=== PATIENT | female | born 2000 | race Caucasian/White ===

== ENCOUNTER → 2024-06-25 | Outpatient (CLI) | payer OTHER, SELFPAY | END | disposition home or self-care (01) | PROVIDERS: Referring Provider Nurse Practitioner Family; Visit Provider Nurse Practitioner Family | DX: J02.9 Acute pharyngitis, unspecified (principal) | CPT/HCPCS: 87070; 87077 ==

== ENCOUNTER 2025-03-03 08:27 | Emergency (ER) | payer OTHER, SELFPAY ==
[2025-03-03 08:28] VITALS: BP 151/98; PULSE 116; RESP 16; TEMP 37; O2SAT 100
--- NOTE | 2025-03-03 08:50 | ED.VIS.LOWEX ---
HPI History of Present Illness Chief Complaint: Lower Extremity Injury Informant: patient Narrative Narrative: Patient is a 24-year-old female with no significant past medical history presenting with right knee pain and injury. Patient slipped on wet grass last night. She describes a valgus stress to her knee and is having significant pain along the medial aspect of her right knee. She states is constant and throbbing. Woke her up around 3 or 4 AM. It is worse when she tries to fully straighten or when she weightbears. Does not have a whole lot of swelling in her knee. Did put a compressive sleeve on last night after the injury. States when she was in high school did have an injury to the same knee but never required any surgery. Did follow-up with an orthopedist in [place]. No other complaints or concerns at this time. No other injuries reported. 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 estradiol 20 1 tab PO DAILY 03/03/25 03/03/25 History mcg (24)-iron 75 mg (4) chew tablet (Breonna 24 Fe) valacyclovir 500 mg tablet 500 mg PO DAILY 03/03/25 03/02/25 History Allergy/AdvReac Type Severity Reaction Status Date / Time No Known Allergies Allergy Verified 03/03/25 08:28 Social History Smoking Status: Never smoker ROS ROS ED Constitutional Constitutional ED: Denies chills or fever(s) Musculoskeletal Musculoskeletal: Reports other Details: right knee pain Integumentary Denies Abrasions or rash Neurologic Neurologic: Denies paresthesias or weakness Hematologic/Lymphatic Hematologic/Lymphatic: Denies easy bleeding or easy bruising EXAM Physical Exam Const Vital Signs: 03/03/25 08:28 03/03/25 09:39 Temperature 98.6 F 97 F L Temperature Source Oral Pulse Rate 116 H 64 Respiratory Rate 16 18 Blood Pressure 151/98 H 134/78 H Blood Pressure Mean 115 96 Pulse Ox 100 99 Oxygen Delivery Method Room Air Positive well nourished and well developed General Appearance ED: well developed and NAD HEENT Reports moist mucous membranes Chest Wall inspection of chest normal Resp normal respiratory effort Cardio regular rate and regular rhythm Cardio Narrative: 2+ DP pulses, no pedal edema present Extremity Extremity Narrative: No obvious deformity. Patient is holding her right knee slightly flexed. States is more painful to extend it fully. Normal extensor mechanism. No high riding/low riding patella. Slight swelling on the medial aspect of the knee but no significant joint effusion present. Mild discomfort with range of motion and increased discomfort with valgus stress. No obvious instability with anterior posterior drawer test. No significant tenderness over the fibular head. Mild tenderness over the tibial plateau. Normal Downs test. No pain with logroll in the hip or with range of motion of the hip. Neuro oriented x3, moves all extremities and no sensory deficits noted Sensorium / Orientation: alert Psych mental status grossly normal MDM MDM MDM Narrative Medical decision making narrative: Patient evaluated for acute knee pain associate with injury yesterday. Something is more of a twisting/ valgus stress mechanism. Patient given Motrin in the emergency room. Will obtain x-ray. Differential includes tibial plateau fracture, meniscal tear, knee sprain ligamentous strain as well as ACL/MCL injury (lower suspicion given no significant joint effusion). X-ray viewed by myself as well as radiology does not show any acute fracture or large joint effusion. Patient be given Raulito wrap, offered crutches as needed, outpatient orthopedic referral counseled on RICE therapy. Radiography Diagnostic Testing: Clinical Impression(s) from Imaging Studies Knee X-Ray 03/03/25 08:58 IMPRESSION: No acute fracture or dislocations. No significant degenerative changes. No large joint effusion. No acute soft tissue abnormalities. No radiographic foreign body. Reading Location: [facility] Discharge Plan Triage Chief Complaint: Lower Extremity Injury ED Provider: Mary Pineda Dx/Rx/DC Orders Clinical Impression: Right knee sprain Instructions: ED Knee Sprain Prescriptions: New ibuprofen 600 mg tablet 600 mg PO Q6H PRN PRN (Reason: pain) Qty: 20 0RF No Action valacyclovir 500 mg tablet 500 mg PO DAILY norethindrone-e.estradiol-iron [Breonna 24 Fe] 1 mg-20 mcg(24) /75 mg (4) tablet,chewable 1 tab PO DAILY Stand Alone Forms: ED Work / School Excuse Primary Care Provider: Care Physician,No Primary Referrals: Denny Hutton DO [Med Staff - Active Staff] - Care Physician,No Primary [Primary Care Provider] - Print Language: Samoan Disposition Disposition: Home, Self Care Discharge Date/Time: 03/03/25 09:40
--- NOTE | 2025-03-03 08:58 | RAD_ITS ---
PROCEDURE: KNEE 4 OR MORE VIEWS 03/03/2025 REASON FOR EXAM: INJURY/PAIN TECHNIQUE: KNEE 4 OR MORE VIEWS COMPARISON: None RAD/Knee 4 or More Views IMPRESSION: No acute fracture or dislocations. No significant degenerative changes. No large joint effusion. No acute soft tissue abnormalities. No radiographic foreign body. Reading Location: [id number]
--- OUTSIDE RECORDS SUMMARY | 2025-03-03 09:05 | XMS RPT_ITS | CCD ---
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 [Mass/Vol] 12 mg/dL 7 - 17 mg/dL [facility] Culture, Throaton 06-27-2024 CUT Penicillin is the drug of choice for Beta Streptococcal infections. For Penicillin allergic patients, Erythromycin may be used. Bacteria Throat Cult No Group A Beta Streptococcus isolated. Streptococcus group C Amount Growth 2+ Normal [facility] Comment on above: Performed By: #### M 100.1000 #### [facility] [address] [place], [address] Office Visit Reporton 2023 Office Visit Report [facility] [address] [address] OFFICE VISIT Date of Service: 06/25/24 MR#: [id number] Acct: [id number] Patient: GELY HICKS Rep #: [id number] : 2000 Provider: NICOLE ngo Age/Sex: 24/F Location: [facility] Status: Signed Intake Vital Signs 06/25/24 12:38 BP 108/60 Blood Pressure Location Lt brachial Position Sitting Respiration 16 Pulse 110 H Pulse Source NIBP Temp 99.1 F Temp Source Oral Pulse Oximetry (%) 99 Oxygen Delivery Method room air Intake Visit Reasons: SORE THROAT, FATIGUE Chief Complaint: ST, fatigue, sweats/chills 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 very painful to swallow even saliva. unsure of fever at home. denies ANNA, cough, congestion PFSH Medical History (Updated 06/25/24 @ 13:01 by [place] NP, SECURITY COMPLIANCE ENGINEER-C) Physical exam, pre-employment HPI HPI Chief Complaint: ST, fatigue, sweats/chills Details: GELY HICKS, is a 24 F who presents to the office today for concerns sore throat, sweats, and chills for the last three days. She states it is painful to swallow. She is unsure of fever. She denies headache, cough, or congestion. Prior to evaluation, she underwent strep testing that was negative. ROS Const Constitutional: No body ache, chills, fatigue, fever(s), headache(s) or change in appetite Eyes Eyes: No blurry vision, change in vision, double vision, irritation, discharge, vision loss, dry eyes, bulging eyes, floaters, visual disturbances, eye pain, Light sensitivity, spots in vision, tunnel vision or other ENT ENT: Positive for sore throat; No ear or mastoid pain, ear discharge, ear pressure, tinnitus, dizziness/vertigo, nosebleed/epistaxis, nasal congestion, nose pain, sinus pressure, sinus pain, nasal discharge, post nasal drip, headache(s), facial pain, dental pain, difficulty swallowing, bad breath, hoarseness, lip swelling, mouth lesions, mouth pain, neck pain, tongue swelling or throat swelling Resp Respiratory: No cough, change in phlegm color, chest congestion, hemoptysis, pain on inspiration, shortness of breath, pain with cough, stridor or wheezing Cardio Cardiology: No chest pain at rest, chest pain with exertion, shortness of breath, dyspnea on exertion or lightheadedness Gastro GI: No abdominal pain, change in bowel habits or difficulty swallowing Genitourinary-Female: No burning urination or urinary frequency Musc Musculoskeletal: No joint pain or neck pain Skin Skin: No rash Neuro Neurology: No headache(s) or visual disturbances Psych Psychiatric: No change in appetite Endo Endocrine: No fatigue Aller/Imm Allergy/Immunologic: No lip swelling, throat swelling, tongue swelling or wheezing Exam Const General: cooperative, healthy appearing, comfortable and no acute distress Orientation: alert, awake and oriented [facility] normal to inspection and normocephalic Ears: hearing grossly normal bilaterally, external ears normal and TM's normal bilaterally Nose: external nose normal, nares normal and no nasal discharge Face and sinus: normal facial exam and sinuses nontender Mouth: oral mucosae normal, lip normal, tongue normal, oropharynx normal and moist mucous membranes Throat: uvula midline, abnormal tonsil bilaterally exudates and hypertrophy 1+ and no postnasal drainage Eyes General: appearance normal, both eyes and all related structures Neck Neck: normal visual inspection and no lymphadenopathy Carotids: normal carotid upstroke Lymphatic: no lymphadenopathy noted Chest Chest palpation inspection: normal inspection of the chest Resp Effort Inspection: normal respiratory effort, able to speak in complete sentences, symmetric chest movement, no cough and no stridor Auscultation: Bilateral: Clear to Auscultation Cardio Rate: other Rhythm: regular rhythm Heart Sounds: S1 normal, S2 normal and no murmurs GI Inspection: normal to inspection Auscultation: normal bowel sounds Palpation: soft Skin General: no rashes or lesions noted Neuro Speech: speech normal Extrem General: normal to inspection and capillary refill normal Results POC Daija Rapid Strep POC Daija Rapid Strep Negative Last Edit by Carolynn Walsh on 06/25/24 12:53 Coding Level of Care Code Off vis,est,l (more content not included)... Normal [facility]gent Care Visit Reporton 0 04-03-2024 Urgent Care Visit Report [facility] [address], [address] [place] [address] OFFICE VISIT Date of Service: 04/03/24 MR#: [id number] Acct: [id number] Name: GELY HICKS Rep #: [id number] : 2000 Provider: TAO Camp Age/Sex: 24/F Location: [facility] Status: Signed Intake Intake Visit Reasons: PRE EMP/NON DOT[facility] Medical History (Updated 04/03/24 @ 11:58 by TAO Lowery) Physical exam, pre-employment HPI HPI Details: GELY HICKS, is a 24 F who presents to the office today for Office Procedures Physical Exam Coding PE Coding Pre-employment PE: Yes Coding Level of Care Code No Charge Diagnoses Physical exam, pre-employment Z02.1 Assessment and Plan Assessment and Plan (1) Physical exam, pre-employment: Status: Acute 04/03/24 1158 Date Severo BURGER Cosigner Signature: Date (if applicable) CC: Normal [facility] COMPREHENSIVE METABOLIC PANE Berry 03-13-2024 Albumin [Mass/Vol] 4.5 g/dL Normal 3.5-5.0 [facility] Comment on above: Performed By: #### L AB17 #### Head Waitress: AUDRA GAUTHIER ([phone]) [facility] [address] ALP [Catalytic activity/Vol] 52 U/L Normal 38-126 [facility] Comment on above: Performed By: #### L AB17 #### Head Waitress: AUDRA GAUTHIER ([phone]) [facility] ANGUIANONADEGE [facility] ([facility]) [address] ALT [Catalytic activity/Vol] 14 U/L Normal 0-34 [facility] Comment on above: Performed By: #### L AB17 #### Head Waitress: AUDRA GAUTHIER ([phone]) [facility]ON[facility] ([facility]) [address] Anion gap [Moles/Vol] 10 mmol/L Normal 3-13 [facility] Comment on above: Performed By: #### L AB17 #### Head Waitress: AUDRA GAUTHIER ([phone]) [facility] [place] [facility] ([facility]) [address] [place] [address] [place] AST [Catalytic activity/Vol] 26 U/L Normal 15-46 [facility] Comment on above: Performed By: #### L AB17 #### Head Waitress: AUDRA GAUTHIER ([phone]) [facility] [place] ([facility]) [address] [place] [address] [place] Bilirubin [Mass/Vol] 0.4 mg/dL Normal 0.2-1.3 [facility] Comment on above: Performed By: #### L AB17 #### Head Waitress: AUDRA GAUTHIER ([phone]) [facility] ([facility]) [address] [place] [address] [place] Calcium [Mass/Vol] 10.1 mg/dL Normal 8.4-10.4 [facility] Comment on above: Performed By: #### L AB17 #### Head Waitress: AUDRA GAUTHIER ([phone]) [facility] ([facility]) [address] [place] [address] [place] Chloride [Moles/Vol] 104 mmol/L Normal 98-107 [facility] Comment on above: Performed By: #### L AB17 #### Head Waitress: AUDRA GAUTHIER ([phone]) [facility] ([facility]) [address] [place] [address] [place] CO2 [Moles/Vol] 20 mmol/L Low 22-30 [facility] Comment on above: Performed By: #### L AB17 #### Head Waitress: AUDRA GAUTHIER ([phone]) [facility] ([facility]) [address] [place] [address] Creatinine [Mass/Vol] 0.72 mg/dL Normal 0.52-1.04 [facility] Comment on above: Performed By: #### L AB17 #### Head Waitress: AUDRA GAUTHIER ([phone]) [facility] ([facility]) [address] [place] [address] GLOMERULAR FILTRATION RATE ML/MIN/1.73 SQ M.PREDICTED >90.0 Normal >60.0 [facility] Comment on above: Result Comment: Calc ulation based on the Chronic Kidney Disease Epidemiology Collaboration (CKD-EPI) equation refit without adjustment for race Performed By: #### L AB17 #### Head Waitress: AUDRA GAUTHIER ([phone]) [facility] ([facility]) [address] [place] [address] [place] Glucose [Mass/Vol] 95 mg/dL Normal 70-100 [facility] Comment on above: Performed By: #### L AB17 #### Head Waitress: AUDRA GAUTHIER ([phone]) [facility]) [address] Potassium [Moles/Vol] 4.5 mmol/L Normal 3.5-5.1 [facility] Comment on above: Performed By: #### L AB17 #### Head Waitress: AUDRA GAUTHIER ([phone]) [facility]) [address] Protein [Mass/Vol] 7.7 g/dL Normal 6.3-8.2 [facility] Comment on above: Performed By: #### L AB17 #### Head Waitress: AUDRA GAUTHIER ([phone]) [facility] ([facility]) [address] [place] [address] Sodium [Moles/Vol] 133 mmol/L Low 135-145 [facility] Comment on above: Performed By: #### L AB17 #### Head Waitress: AUDRA GAUTHIER ([phone]) [facility] ([facility]) [address] [place] [address] Urea nitrogen [Mass/Vol] 14 mg/dL Normal 7-17 [facility] Comment on above: Performed By: #### L AB17 #### Head Waitress: AUDRA GAUTHIER ([phone]) [facility] [place] ([facility]) [address] [place] [address] Comprehensive metabolic 1998 panelon 03-13-2024 Albumin [Mass/Vol] 4.5 g/dL 3.5 - 5.0 g/dL [facility] ALP [Catalytic activity/Vol] 52 U/L 38 - 126 U/L [facility] ALT [Catalytic activity/Vol] 14 U/L 0 - 34 U/L [facility] Anion gap [Moles/Vol] 10 mmol/L 3 - 13 mmol/L [facility] AST [Catalytic activity/Vol] 26 U/L 15 - 46 U/L [facility] Bilirubin [Mass/Vol] 0.4 mg/dL 0.2 - 1 .3 mg/dL [facility] Calcium [Mass/Vol] 10.1 mg/dL 8.4 - 10. 4 mg/dL [facility] Chloride [Moles/Vol] 104 mmol/L 98 - 10 7 mmol/L [facility] CO2 [Moles/Vol] 20 mmol/L Low 22 - 30 mmol/L [facility] Creatinine [Mass/Vol] 0.72 mg/dL 0.52 - 1.04 mg/dL [facility] GFR/1.73 sq M.predicted MDRD (S/P/Bld) [Vol rate/Area] - PINF [facility] Comment on above: Calculation based on the Chronic Kidney Disease Epidemiology Collaboration (CKD-EPI) equation refit without adjustment for race Glucose [Mass/Vol] 95 mg/dL 70 - 100 mg/dL [facility] Interpretation and review of laboratory results Abnormal [facility] Potassium [Moles/Vol] 4.5 mmol/L 3.5 - 5.1 mmol/L [facility] Protein [Mass/Vol] 7.7 g/dL 6.3 - 8.2 g/dL [facility] Sodium [Moles/Vol] 133 mmol/L Low 135 - 145 mmol/L [facility] Urea nitrogen [Mass/Vol] 14 mg/dL 7 - 17 mg/dL [facility] MR Abdomen WO and W contrast Mark 01-26-2024 No suspicious lesion . There is mild diffuse hepatic steatosis with a small region in the anterior left hepatic lobe compatible with more pronounced focal fatty infiltration which corresponds to the abnormality on the prior ultrasound. Report Dictated on Electronically Signed By: Denny Gilliland MD Electronically Signed Date/Time: 01/26/2024 7:57 AM [facility] Patient Name: GELY HICKS : 2000 Exam Date/Time: 01/25/2024 13:45 Procedure: MR ABDOMEN W AND WO CONTRAST Ordering Provider: WALSH DAVID Reason For Exam: r93.89/k76.0 MRI ABDOMEN WITHOUT AND WITH CONTRAST (WITH ATTENTION TO THE LIVER) EXAM DATE AND TIME: 01/25/2024 1:45 PM EDT INDICATION: 23 years Female with hepatitis C, abnormal CT TECHNIQUE: Multiplanar multisequence MR images of the abdomen were performed with attention to the liver, including diffusion-weighted images and imaging following the intravenous administration of 4.5 mL Gadavist contrast. COMPARISON: 12/29/23, 01/30/23 FINDINGS: Liver: The liver is normal in size and contour. There is mild diffuse drop in signal on the opposed-phase images consistent with fat deposition. There is a more focal area in the anterior left hepatic lobe with more pronounced signal loss compatible with more focal fatty infiltration. Otherwise, no focal liver lesion. Biliary tree: Normal gallbladder. No biliary dilatation. Spleen: Normal Adrenals:Normal Pancreas: Homogeneous enhancement without mass or peripancreatic fluid. No pancreatic duct dilation. Kidneys: Symmetric contrast enhancement without mass or hydronephrosis Lymph nodes: No lymphadenopathy. Vasculature: The aorta and major abdominal arterial vessels are unremarkable. Superior mesenteric vein, splenic vein and the main, right and left portal veins are patent. No significant collaterals or esophageal varices. Visualized Osseous structures: Normal [facility] Denny Gilliland MD - 01/26/2024 [facility] 2000 [id number] Exam Date/Time: 01/25/2024 13:45 Procedure: MR ABDOMEN W AND WO CONTRAST Ordering Provider: WALSH DAVID Reason For Exam: r93.89/k76.0 MRI ABDOMEN WITHOUT AND WITH CONTRAST (WITH ATTENTION TO THE LIVER) EXAM DATE AND TIME: 01/25/2024 1:45 PM EDT INDICATION: 23 years Female with hepatitis C, abnormal CT TECHNIQUE: Multiplanar multisequence MR images of the abdomen were performed with attention to the liver, including diffusion-weighted images and imaging following the intravenous administration of 4.5 mL Gadavist contrast. COMPARISON: 12/29/23, 01/30/23 FINDINGS: Liver: The liver is normal in size and contour. There is mild diffuse drop in signal on the opposed-phase images consistent with fat deposition. There is a more focal area in the anterior left hepatic lobe with more pronounced signal loss compatible with more focal fatty infiltration. Otherwise, no focal liver lesion. Biliary tree: Normal gallbladder. No biliary dilatation. Spleen: Normal Adrenals:Normal Pancreas: Homogeneous enhancement without mass or peripancreatic fluid. No pancreatic duct dilation. Kidneys: Symmetric contrast enhancement without mass or hydronephrosis Lymph nodes: No lymphadenopathy. Vasculature: The aorta and major abdominal arterial vessels are unremarkable. Superior mesenteric vein, splenic vein and the main, right and left portal veins are patent. No significant collaterals or esophageal varices. Visualized Osseous structures: Normal IMPRESSION: No suspicious lesion. There is mild diffuse hepatic steatosis with a small region in the anterior left hepatic lobe compatible with more pronounced focal fatty infiltration which corresponds to the abnormality on the prior ultrasound. Report Dictated on Electronically Signed By: Denny Gilliland MD Electronically Signed Date/Time: 01/26/2024 7:57 AM EDT [facility] MR Abdomen WO and W contrast IVOrdered By: Denny Gilliland on 01-26-2024 [facility] Work Phone: MR Abdomen WO and W contrast Mark 01-25-2024 Radiology Study observation (narrative) [facility] US ABDOMEN LIMITEDon 024 US ABDOMEN LIMITED Patient Name: GELY HICKS : 2000 [id number] Exam Date/Time: 12/29/2023 09:54 Procedure: US ABDOMEN LIMITED Ordering Provider: WALSH DAVID Reason For Exam: b19.20 ULTRASOUND ABDOMEN LIMITED CLINICAL INDICATION: Hepatitis TECHNIQUE: Ultrasound of the right upper quadrant COMPARISON: 01/30/2023 FINDINGS: Pancreas: The visualized portions of the pancreatic head and body are unremarkable. The remainder of the pancreas is obscured by bowel gas Liver: Normal echogenicity, size and contours. Lobulated echogenic structure in the anterior left hepatic lobe measuring 2.4 x 1.9 x 1.4 cm. Gallbladder: Normal. Per the cat scan technologist, the sonographic Benoit's sign was negative. Bile ducts: No intrahepatic and extrahepatic biliary dilatation Common bile duct: 3 mm Right kidney: Normal size measuring 9.2 cm. Normal parenchymal echogenicity without solid mass or hydronephrosis. Ascites: None IMPRESSION: 1. Lobulated echogenic liver lesion, which could represent focal fatty infiltration or a hemangioma but given the history of hepatitis, recommend MRI with contrast. Report Dictated on Electronically Signed By: Denny Gilliland MD Electronically Signed Date/Time: 12/29/2023 12:22 PM EDT [facility] US Abdomen limitedon 024 1. Lobulated echogenic liver lesion, which could represent focal fatty infiltration or a hemangioma but given the history of hepatitis, recommend MRI with contrast. Report Dictated on Electronically Signed By: Denny Gilliland MD Electronically Signed Date/Time: 12/29/2023 12:22 PM EDT [facility] Patient Name: GELY HICKS : 2000 Exam Date/Time: 12/29/2023 09:54 Procedure: US ABDOMEN LIMITED Ordering Provider: WALSH DAVID Reason For Exam: b19.20 ULTRASOUND ABDOMEN LIMITED CLINICAL INDICATION: Hepatitis TECHNIQUE: Ultrasound of the right upper quadrant COMPARISON: 01/30/2023 FINDINGS: Pancreas: The visualized portions of the pancreatic head and body are unremarkable. The remainder of the pancreas is obscured by bowel gas Liver: Normal echogenicity, size and contours. Lobulated echogenic structure in the anterior left hepatic lobe measuring 2.4 x 1.9 x 1.4 cm. Gallbladder: Normal. Per the cat scan technologist, the sonographic Benoit's sign was negative. Bile ducts: No intrahepatic and extrahepatic biliary dilatation Common bile duct: 3 mm Right kidney: Normal size measuring 9.2 cm. Normal parenchymal echogenicity without solid mass or hydronephrosis. Ascites: None [facility] Denny Gilliland MD - 12/29/2023 Patient Name: GELY HICKS : 2000 Exam Date/Time: 12/29/2023 09:54 Procedure: US ABDOMEN LIMITED Ordering Provider: WALSH DAVID Reason For Exam: b19.20 ULTRASOUND ABDOMEN LIMITED CLINICAL INDICATION: Hepatitis TECHNIQUE: Ultrasound of the right upper quadrant COMPARISON: 01/30/2023 FINDINGS: Pancreas: The visualized portions of the pancreatic head and body are unremarkable. The remainder of the pancreas is obscured by bowel gas Liver: Normal echogenicity, size and contours. Lobulated echogenic structure in the anterior left hepatic lobe measuring 2.4 x 1.9 x 1.4 cm. Gallbladder: Normal. Per the cat scan technologist, the sonographic Benoit's sign was negative. Bile ducts: No intrahepatic and extrahepatic biliary dilatation Common bile duct: 3 mm Right kidney: Normal size measuring 9.2 cm. Normal parenchymal echogenicity without solid mass or hydronephrosis. Ascites: None IMPRESSION: 1. Lobulated echogenic liver lesion, which could represent focal fatty infiltration or a hemangioma but given the history of hepatitis, recommend MRI with contrast. Report Dictated on Electronically Signed By: Denny Gilliland MD Electronically Signed Date/Time: 12/29/2023 12:22 PM EDT [facility] Radiology Study observation (narrative) [facility] US Abdomen limitedOrdered By : Denny Gilliland on 12-29-2023 [facility] Work Phone: BASIC METABOLIC PANELon -0 Anion gap [Moles/Vol] 13 mmol/L Normal 3-13 [facility] Comment on above: Performed By: #### L AB15 #### Head Waitress: YOMI ALEXANDER ([phone]) [facility] ([facility]) [address] Calcium [Mass/Vol] 9.6 mg/dL Normal 8.4-10.4 [facility] Comment on above: Performed By: #### L AB15 #### Head Waitress: YOMI ALEXANDER ([phone]) [facility] ([facility]) [address] Chloride [Moles/Vol] 104 mmol/L Normal 98-107 [facility] Comment on above: Performed By: #### L AB15 #### Head Waitress: YOMI ALEXANDER ([phone]) [facility] ([facility]) [address] CO2 [Moles/Vol] 27 mmol/L Normal 22-30 [facility] Comment on above: Performed By: #### L AB15 #### Head Waitress: YOMI ALEXANDER ([phone]) [facility] ([facility]) [address] Creatinine [Mass/Vol] 0.48 mg/dL Low 0.52-1.04 [facility] Comment on above: Performed By: #### L AB15 #### Head Waitress: YOMI ALEXANDER ([phone]) [facility] ([facility]) [address] GLOMERULAR FILTRATION RATE ML/MIN/1.73 SQ M.PREDICTED >90.0 Normal >60.0 [facility] Comment on above: Result Comment: Calc ulation based on the Chronic Kidney Disease Epidemiology Collaboration (CKD-EPI) equation refit without adjustment for race Performed By: #### L AB15 #### Head Waitress: YOMI ALEXANDER ([phone]) [facility] ([facility]) [address] Glucose [Mass/Vol] 100 mg/dL Normal 70-100 [facility] Comment on above: Performed By: #### L AB15 #### Head Waitress: YOMI ALEXANDER ([phone]) [facility] ([facility]) [address] [place] [address] [place] Potassium [Moles/Vol] 4.4 mmol/L Normal 3.5-5.1 [facility] Comment on above: Performed By: #### L AB15 #### Head Waitress: YOMI ALEXANDER ([phone]) [facility] ([facility]) [address] [place] [address] [place] Sodium [Moles/Vol] 144 mmol/L Normal 135-145 [facility] Comment on above: Performed By: #### L AB15 #### Head Waitress: YOMI ALEXANDER ([phone]) [facility] ([facility]) [address] Urea nitrogen [Mass/Vol] 7 mg/dL Normal 7-17 [facility] Comment on above: Performed By: #### L [id number] #### Head Waitress: YOMI ALEXANDER ([id number]) [facility] (SBHLAB) [address] Basic metabolic 1998 panelon 08-26-2023 Anion gap [Moles/Vol] 13 mmol/L 3 - 13 mmol/L [facility] Calcium [Mass/Vol] 9.6 mg/dL 8.4 - 10. 4 mg/dL [facility] Chloride [Moles/Vol] 104 mmol/L 98 - 10 7 mmol/L [facility] CO2 [Moles/Vol] 27 mmol/L 22 - 30 mmol/L [facility] Creatinine [Mass/Vol] 0.48 mg/dL Low 0.52 - 1.04 mg/dL [facility] GFR/1.73 sq M.predicted MDRD (S/P/Bld) [Vol rate/Area] - PINF [facility] Comment on above: Calculation based on the Chronic Kidney Disease Epidemiology Collaboration (CKD-EPI) equation refit without adjustment for race Glucose [Mass/Vol] 100 mg/dL 70 - 100 mg/dL [facility] Interpretation and review of laboratory results Abnormal [facility] Potassium [Moles/Vol] 4.4 mmol/L 3.5 - 5.1 mmol/L [facility] Sodium [Moles/Vol] 144 mmol/L 135 - 145 mmol/L [facility] Urea nitrogen [Mass/Vol] 7 mg/dL 7 - 17 mg/dL [facility] CBC W Auto Differential pane l (Bld)Ordered By: Hernán Montgomery on 08-26-2023 Basophils (Bld) [#/Vol] 0.0 10*3/uL 0.0 - 0.2 10*3/uL [facility] Basophils/100 WBC (Bld) 1.2 % 0.0 - 2.0 % [facility] Eosinophils (Bld) [#/Vol] 0.0 10*3/uL 0.0 - 0.5 10*3/uL [facility] Eosinophils/100 WBC (Bld) 0.4 % Low 1.0 - 6.0 % [facility] Erythrocyte distribution width (RBC) [Ratio] 12.2 % 11.5 - 14.5 % [facility] Hematocrit (Bld) [Volume fraction] 41.4 % 35.0 - 47.0 % [facility] Hemoglobin (Bld) [Mass/Vol] 14.0 g/dL 11.7 - 16.0 g/dL [facility] Interpretation and review of laboratory results Abnormal [facility] Lymphocytes (Bld) [#/Vol] 1.8 10*3/uL 1.0 - 4.3 10*3/uL [facility] Lymphocytes/100 WBC (Bld) 52.4 % High 20.0 - 40.0 % [facility] MCH (RBC) [Entitic mass] 32.8 pg 26.0 - 34.0 pg [facility] MCHC (RBC) [Mass/Vol] 33.8 % 32.0 - 36.0 % [facility] MCV (RBC) [Entitic vol] 97.0 fL 80.0 - 98.0 fL [facility] Monocytes (Bld) [#/Vol] 0.2 10*3/uL 0.0 - 0.8 10*3/uL [facility] Monocytes/100 WBC (Bld) 6.5 % 2.0 - 10.0 % [facility] Neutrophils (Bld) [#/Vol] 1.3 10*3/uL Low 1.8 - 7.0 10*3/uL [facility] Neutrophils/100 WBC (Bld) 39.5 % Low 40.0 - 80.0 % [facility] Nucleated RBC/100 WBC (Bld) [Ratio] 0.1 % [facility] Platelet mean volume (Bld) [Entitic vol] 6.2 fL Low 7.4 - 12.4 fL [facility] Platelets (Bld) [#/Vol] 460 10*3/uL High 140 - 440 10*3/uL [facility] RBC (Bld) [#/Vol] 4.27 10*6/uL 3.8 - 5.20 10*6/uL [facility] WBC (Bld) [#/Vol] 3.3 10*3/uL Low 3.6 - 10.7 10*3/uL [facility] CBC WITH AUTO DIFFERENTIALon 08-26-2023 Basophils (Bld) [#/Vol] 0.0 10*3/uL Normal 0.0-0.2 [facility] Comment on above: Performed By: #### L [id number] #### Head Waitress: YOMI ALEXANDER ([id number]) [facility] ([facility]) [address] Basophils/100 WBC (Bld) 1.2 % Normal 0.0-2.0 [facility] Comment on above: Performed By: #### L [id number] #### Head Waitress: YOMI ALEXANDER ([id number]) [facility] ([facility]) [address] Eosinophils (Bld) [#/Vol] 0.0 10*3/uL Normal 0.0-0.5 [facility] Comment on above: Performed By: #### L [id number] #### Head Waitress: YOMI ALEXANDER ([id number]) [facility] [place] [address] Eosinophils/100 WBC (Bld) 0.4 % Low 1.0-6.0 [facility] Comment on above: Performed By: #### L [id number] #### Head Waitress: YOMI ALEXANDER ([id number]) [facility] [place] ([facility] [address] Erythrocyte distribution width (RBC) [Ratio] 12.2 % Normal 11.5-14.5 [facility] Comment on above: Performed By: #### L [id number] #### Head Waitress: YOMI ALEXANDER ([id number]) [facility] [address] ERYTHROCYTE MEAN CORPUSCULAR HEMOGLOBIN CONCENTRATION (G/DL) BY AUTOMATED 33.8 % Normal 32.0-36.0 [facility] Comment on above: Performed By: #### L [id number] #### Head Waitress: YOMI ALEXANDER ([id number]) [facility] [place] ([facility] [address] Hematocrit (Bld) [Volume fraction] 41.4 % Normal 35.0-47.0 [facility] Comment on above: Performed By: #### L [id number] #### Head Waitress: YOMI ALEXANDER ([id number]) [facility] ([facility]) [address] Hemoglobin (Bld) [Mass/Vol] 14.0 g/dL Normal 11.7-16.0 [facility] Comment on above: Performed By: #### L [id number] #### Head Waitress: YOMI MICHAELCER ([id number]) [facility] (HLAB) [address] Lymphocytes (Bld) [#/Vol] 1.8 10*3/uL Normal 1.0-4.3 [facility] Comment on above: Performed By: #### L [id number] #### Head Waitress: YOMI ALEXANDER ([id number]) [facility] ([facility]) [address] Lymphocytes/100 WBC (Bld) 52.4 % High 20.0-40.0 [facility] Comment on above: Performed By: #### L [id number] #### Head Waitress: YOMI ALEXANDER ([id number]) [facility] [address] MCH (RBC) [Entitic mass] 32.8 pg Normal 26.0-34.0 [facility] Comment on above: Performed By: #### L [id number] #### Head Waitress: YOMI ALEXANDER ([id number]) [facility] [address] MCV (RBC) [Entitic vol] 97.0 fL Normal 80.0-98.0 [facility] Comment on above: Performed By: #### L [id number] #### Head Waitress: YOMI ALEXANDER ([id number]) [facility] [address] Monocytes (Bld) [#/Vol] 0.2 10*3/uL Normal 0.0-0.8 [facility] Comment on above: Performed By: #### L [id number] #### Head Waitress: YOMI STREETManojBIANKA ([id number]) [facility] [address] Monocytes/100 WBC (Bld) 6.5 % Normal 2.0-10.0 [facility] Comment on above: Performed By: #### L [id number] #### Head Waitress: YOMI CATHERINE ([id number]) [facility] [address] Neutrophils (Bld) [#/Vol] 1.3 10*3/uL Low 1.8-7.0 [facility] Comment on above: Performed By: #### L [id number] #### Head Waitress: YOMI CATHERINE ([id number]) [facility] [address] Neutrophils/100 WBC (Bld) 39.5 % Low 40.0-80.0 [facility] Comment on above: Performed By: #### L [id number] #### Head Waitress: YOMI STREETManojBIANKA ([id number]) [facility] [address] NRBC (PER 100 WBCS) BY AUTOMATED COUNT 0.1 /100 WBCs Normal 0.0-2.0 [facility] Comment on above: Performed By: #### L [id number] #### Head Waitress: YOMI NGUYENBIANKA ([id number]) [facility] [address] Platelet mean volume (Bld) [Entitic vol] 6.2 fL Low 7.4-12.4 [facility] Comment on above: Performed By: #### L [id number] #### Head Waitress: YOMI ALEXANDER ([id number]) [facility] [address] Platelets (Bld) [#/Vol] 460 10*3/uL High 140-440 [facility] Comment on above: Performed By: #### L [id number] #### Head Waitress: YOMI MICHAELCER ([id number]) [facility] ([facility]) [address] RBC (Bld) [#/Vol] 4.27 10*6/uL Normal 3.8-5.20 [facility] Comment on above: Performed By: #### L [id number] #### Head Waitress: YOMI MICHAELCER ([id number]) [facility] ([facility]) [address] WBC (Bld) [#/Vol] 3.3 10*3/uL Low 3.6-10.7 [facility] Comment on above: Performed By: #### L [id number] #### Head Waitress: YOMI NGUYENBIANKA ([id number]) [facility] ([facility]) [address] [place] [place] [address] COMPLETE URINALYSISon 2023 BILIRUBIN, TOTAL PRESENCE IN URINE Negative Normal Negative [facility] Comment on above: Performed By: #### L [id number] #### Head Waitress: AUDRA GAUTHIER ([id number]) [facility] NADEGE [facility] (SWRLAB) [address] [place] [address] Clarity (U) Clear Normal Clear [facility] Comment on above: Performed By: #### L [id number] #### Head Waitress: AUDRA GAUTHIER ([id number]) [facility] [place] (SWRL[facility]) [address] [place] [address] Color (U) Colorless Normal Lt. Yellow [facility] Comment on above: Performed By: #### L [id number] #### Head Waitress: AUDRA GAUTHIER ([id number]) [facility] [place] ([facility]) [address] [place] [address] GLUCOSE (MG/DL) IN URINE Normal Normal Normal (<70) [facility] Comment on above: Performed By: #### L [id number] #### Head Waitress: AUDRA GAUTHIER ([id number]) [facility] (SWRL[facility]) [address] [place] [address] [place] HEMOGLOBIN PRESENCE IN URINE Negative Normal Negative [facility] Comment on above: Performed By: #### L [id number] #### Head Waitress: AUDRA GAUTHIER ([id number]) [facility] (SWRL[facility]) [address] [place] [address] [place] Ketones Ql (U) Negative Normal Negative [facility] Comment on above: Performed By: #### L [id number] #### Head Waitress: AUDRA GAUTHIER ([id number]) [facility] ([facility]) [address] [place] [address] LEUKOCYTE ESTERASE PRESENCE IN URINE BY TEST STRIP Negative Normal Negative [facility] Comment on above: Performed By: #### L [id number] #### Head Waitress: AUDRA GAUTHIER ([id number]) [facility] ([facility]) [address] [place] [address] NITRITE PRESENCE IN URINE Negative Normal Negative [facility] Comment on above: Performed By: #### L [id number] #### Head Waitress: AUDRA GAUTHIER ([id number]) [facility] ([facility]) [address] [place] [address] pH (U) 5.5 [pH] Normal 5.0-8.0 [facility] Comment on above: Performed By: #### L [id number] #### Head Waitress: AUDRA GAUTHIER ([id number]) [facility] ([facility]) [address] [place] [address] [place] Protein (U) [Mass/Vol] Negative Normal Negative [facility] Comment on above: Performed By: #### L [id number] #### Head Waitress: AUDRA GAUTHIER ([id number]) [facility] ([facility]) [address] [place] [address] Specific gravity (U) [Rel density] 1.004 Low 1.005-1.030 [facility] Comment on above: Performed By: #### L [id number] #### Head Waitress: AUDRA GAUTHIER ([id number]) [facility]NE[facility]LL[facility] (RLAB) [address] [place] [address] UROBILINOGEN (MG/DL) IN URINE Normal Normal Normal (0-1) [facility] Comment on above: Performed By: #### L [id number] #### Head Waitress: AUDRA HOSSEINMARGOT ([id number]) [facility] (SWRL[facility]) [address] [place] [address] ED Nursing Noteon 08-26-2023 ED Nursing Note [facility] RN spoke with pt . Regarding her Audit C score of 5: pt. Drinks 4-5 times weekly, drinks 3-4 drinks per episode & pt. Drinks more than 6 drinks per episode monthly. Pt. Reports she has been counseling @ [facility] in [place] for 6 weeks. Pt. Declined assessment & referral assistance for additional tx. Pt. Accepted educational info: Effects of penitentiary use of Alcohol, & referral info for tx. Options in the community or [facility]. Pt. Accepted [place] Resource info.. John Fernandez RN 08/26/23 1421 Normal [facility] ED Nursing Note This RN went to plac e IV, draw labs, and medicate pt, pt states she does not want IV or IV medications due to her having to leave at 3pm, states she just wants bloodwork. Dr fernandez notified and aware. Sharon Merrill RN 08/26/23 1401 Normal [facility] ED Nursing Note Below are additional resources that you may find beneficial in your treatment: 12-Step: Alcohol Anonymous: [facility] [place] Anon: [phone]: 12-step program for families & friends of people with addiction. CRISIS: Homeless Hotline: 664.508.1818 Domestic Violence help line anytime: 250.502.9120 Crisis Hotline: 15/03- 297.562.3891 [facility] Addiction Helpline: 958.396.1371 (available 8:30 AM to 4:00 PM ) 2-1-1 2-1-1 helps people across [facility] find local resources when they don't know where to turn for help. We are available 24 hours a day, 7 days a week. For help, simply dial 2-1-1 to speak to one of our trained professionals. DETOX TREATMENT: [facility]: anytime @ [phone] for alcohol & drug addiction help. [facility] coordination: [phone] (Medicare not accepted) [facility] [place]: [phone] ([place] Medicaid not accepted) [facility] [place]: [phone] ([place] Medicaid not accepted) [facility] [place]: [phone] [facility] [place]: [phone] [place]: [phone], [facility] [place]: [phone] [place], [place] [phone] [facility] [place] [facility] [place]: [phone] [facility], [place], [place] [phone] ext. [phone] [place], [place] (pt. must be medically cleared prior to admission in ED) [facility] [place]: [phone] ([place] Medicaid not accepted) [facility], [place] [phone] OUTPATIENT TREATMENT: [facility] [place] [phone]. 1st Step MAT Program @ [facility] ED: [phone] 1st Step MAT Program @ [facility] ED: [phone] 1st Step MAT Program @ [facility] ED: [phone] Intensive Outpatient Programs- [place], [place] [phone] [place], [place] [phone] [place], [place] [phone] [place], [place] [phone] [facility] Addiction Treatment: [place], [place] [phone] or [phone]. [facility]: [phone] [facility], [place]: [phone], [place]: [phone] [facility], [place], [place]: [phone] [facility], [place]: [phone], [place]: [phone] [facility] [place]. [place]: [phone] [facility], [place], [place] [phone] [facility]: [place], [place] [phone] [facility] [place], [place] [phone] [facility] [phone] RESIDENTIAL TREATMENT FACILITIES: [facility], [place], [place] [phone] (admission coordinated by ADM Grant Mckenna ext [phone]) [facility], [facility] [place]: [phone]; Men's services inpt. & women services - Outpt. [place], [place] [phone] [facility] [address] [place], [place] [phone] [facility] [place], [place] [phone] [facility] [place], [place] [phone] [facility] - [place], [place] [phone] OTHER SERVICES: [employer] [facility] [employer]: [phone] [facility]: [phone] ext. [phone] Medicaid Health Coverage: [facility]: [phone] John Fernandez RN 08/26/23 1358 John Fernandez RN 08/26/23 1403 Normal [facility] ED Nursing Note What Are the Effects of Alcohol on the Body? Short-term Long-term Physical Psychological Risk factors Finding support Safety Alcohol can cause both short-term effects, such as lowered inhibitions, and long-term effects, including a weakened immune system. You won't necessarily feel alcohol's impact on your body right away, but it starts from the moment you take your first sip. If you drink, you've probably had some experience with alcohol's effects, from the warm buzz that kicks in quickly to the njx-mg-pfbqgyal wine headache, or the hangover that shows up the next morning. Since those effects don't last long, you might not worry much about them, especially if you don't drink often. Many people assume the occasional beer or glass of wine at mealtimes or special occasions doesn't pose much cause for concern. But drinking any amount of alcohol can potentially lead to unwanted health consequences. People who binge drink or drink heavily may notice more health effects sooner, but alcohol also poses some risks for people who drink in moderation. What does it mean to drink in moderation? Current guidelines from the Centers for Disease Control and Prevention (CDC)Trusted Source define moderate drinking as: 1 or fewer drinks each day for women 2 or fewer drinks each day for men Past guidance around alcohol use generally suggests a daily drink poses little risk of negative health effects -- and might even offer a few health benefits. But more recent research suggests there's really no ?safe? amount of alcohol since even moderate drinking can negatively impact brain health. Was this helpful? Alcohol use can begin to take a toll on anyone's physical and mental well-being over time. These effects may be more serious and more noticeable if you drink regularly and tend to have more than 1 or 2 drinks when you do. Read on to get the details on how alcohol can affect your body, brain, and emotional health, plus a few tips on finding support if you're considering cutting back on drinking. Short-term effects of alcohol Temporary effects you might notice while drinking alcohol (or shortly after) can include: feelings of relaxation or drowsiness a sense of euphoria or giddiness changes in mood lowered inhibitions impulsive behavior slowed or slurred speech nausea and vomiting diarrhea head pain changes in hearing, vision, and perception loss of coordination trouble focusing or making decisions loss of consciousness or gaps in memory (often called a blackout) Some of these effects, like a relaxed mood or lowered inhibitions, might show up quickly after just one drink. Others, like loss of consciousness or slurred speech, may develop after a few drinks. Dehydration-related effects, like nausea, headache, and dizziness, might not appear for a few hours, and they can also depend on what you drink, how much you drink, and if you also drink water. These effects might not last very long, but that doesn't make them insignificant. Impulsiveness, loss of coordination, and changes in mood can affect your judgment and behavior and contribute to more far-reaching effects, including accidents, injuries, and decisions you later regret. Long-term effects of alcohol Alcohol use can also lead to more lasting concerns that extend beyond your own mood and health. Some long-term effects of frequently drinking alcohol can include: persistent changes in mood, including anxiety and irritability insomnia and other sleep concerns a weakened immune system, meaning you might get sick more often changes in libido and sexual function changes in appetite and weight problems with memory and concentration difficulty focusing on tasks increased tension and conflict in romantic and family relationships Alcohol's physical effects on the body Here's a breakdown of alcohol's effects on your internal organs and body processes. Digestive and endocrine glands Drinking too much alcohol over time may cause inflammation of the pancreas, resulting in pancreatitis. Pancreatitis can activate the release of pancreatic digestive enzymes and cause abdominal pain. Pancreatitis can become a long-term condition and cause serious complications. Inflammatory damage Your liver helps break down and remove toxins and harmful substances (including alcohol) from your body. Long-term alcohol use interferes with this process. It also increases your risk for alcohol-related liver disease and chronic liver inflammation: Alcohol-related liver disease is a potentially life threatening condition that leads to toxins and waste buildup in your body. Chronic liver inflammation can cause scarring, or cirrhosis. When scar tissue forms, it may permanently damage your liver. Sugar levels The pancreas helps regulate how your body uses insulin and responds to glucose. If your pancreas and liver don't function properl (more content not included)... [facility] ED Nursing Note Report given to to Sharon Tracey RN 08/26/23 1306 [facility] ED Provider Noteon ED Provider Note EMERGENCY DEPARTMENT ENCOUNTER Pt Name: Gely Hicks Birthdate 2000 Date of evaluation: 08/26/2023 ED Provider: Tim Fernandez DO CHIEF COMPLAINT Chief Complaint Patient presents with Rash Pt presents to ED with c/o red rash to bilateral knees. States now the rash has disappeared. States that it was painful. Bilateral knees remain in pain. Now is experiencing some splotching to her bilateral upper extremities. Reports that she did just use new body soap last night in shower. HISTORY OF PRESENT ILLNESS (Location/Symptom, Timing/Onset, Context/Setting, Quality, Duration, Modifying Factors, Severity) Note limiting factors. I wore appropriate PPE for the entirety of this encounter. HPI Gely Hicks is a 23 y.o. female who presents to the emergency department blotchy erythematous rash which started on her knees yesterday after using a new soap. Rash to her lower extremities resolved. Then developed erythema in the upper extremities. States she has pain throughout her knees. No fevers but has had chills. No other chest pain shortness of breath abdominal pain nausea vomiting weakness or numbness. States the pain is an achy pain. No other past medical history other than anxiety. States she may be . Nursing Notes were reviewed. REVIEW OF SYSTEMS 14 systems reviewed and otherwise acutely negative except as in the [place]. PAST MEDICAL HISTORY Past Medical History: Diagnosis Date Anxiety SURGICAL HISTORY Past Surgical History: Procedure Laterality Date WISDOM TOOTH EXTRACTION CURRENT MEDICATIONS Discharge Medication List as of 08/26/2023 2:44 PM CONTINUE these medications which have NOT CHANGED Details Multiple Vitamins-Minerals (multivitamin with minerals) tablet Take 1 tablet by mouth daily., Historical Med ALLERGIES Patient has no known allergies. FAMILY HISTORY No family history on file. SOCIAL HISTORY Social History Socioeconomic History Marital status: Single Tobacco Use Smoking status: Former Types: Cigarettes Smokeless tobacco: Never Vaping Use Vaping Use: Every day Substances: Nicotine Substance and Sexual Activity Alcohol use: Yes Alcohol/week: 15.0 standard drinks of alcohol Types: 15 Standard drinks or equivalent per week Drug use: Not Currently SCREENINGS PHYSICAL EXAM ED Triage Vitals [08/26/23 1211] Temp Heart Rate Resp BP 36.4 ?C (97.5 ?F) (!) 115 18 (!) 156/107 SpO2 Temp Source Heart Rate Source Patient Position 96 % Temporal Monitor -- BP Location FiO2 (%) -- -- CONSTITUTIONAL: AOx4, no apparent distress, appears stated age HEAD: normocephalic, atraumatic EYES: PERRL, EOMI ENT: moist mucous membranes, uvula midline NECK: supple, symmetric BACK: symmetric LUNGS: clear to auscultation bilaterally CARDIOVASCULAR: regular rate and rhythm, no murmurs, rubs or gallops ABDOMEN: soft, non-tender, non-distended with normal active bowel sounds : deferred NEUROLOGIC: MAEx4, no focal sensory or motor deficits MUSCULOSKELETAL: no clubbing, cyanosis or edema SKIN: no exposed rash DIAGNOSTIC RESULTS Procedures/EKG: EKG was reviewed by myself. [facility] RAD[facility]OLOGY (Per Emergency Physician): Interpretation per the Radiologist below, if available at the time of this note: No orders to display ED BEDSIDE ULTRASOUND: Performed by ED Physician - none LABS: Labs Reviewed CBC WITH AUTO DIFFERENTIAL - Abnormal Result Value Auto WBC 3.3 (*) RBC 4.27 Hemoglobin 14.0 Hematocrit 41.4 MCV 97.0 MCH 32.8 MCHC 33.8 RDW 12.2 Platelets 460 (*) MPV 6.2 (*) nRBC 0.1 Neutrophils Relative 39.5 (*) Lymphocytes Relative 52.4 (*) Monocytes Relative 6.5 Eosinophils Relative 0.4 (*) Basophils Relative 1.2 Neutrophils Absolute 1.3 (*) Lymphocytes Absolute 1.8 Monocytes Absolute 0.2 Eosinophils Absolute 0.0 Basophils Absolute 0.0 BASIC METABOLIC PANEL - Abnormal SODIUM 144 POTASSIUM 4.4 CHLORIDE 104 CARBON DIOXIDE 27 UREA NITROGEN 7 CREATININE 0.48 (*) GLUCOSE 100 CALCIUM 9.6 ANION GAP 13 eGFR >90.0 COMPLETE URINALYSIS - Abnormal Color, Urine Colorless Clarity, Urine Clear pH, Urine 5.5 Leukocytes, Urine Negative Nitrite, Urine Negative Protein, Urine Negative Glucose, Urine Normal Bilirubin, Urine Negative Ketones, Urine Negative Urobilinogen, Urine Normal Blood, Urine Negative SPECIFIC GRAVITY OF URINE (NUMERIC) 1.004 (*) HCG QUALITATIVE URINE HCG,URINE QUAL Negative Narrative: is the most common reason for HCG in urine, although choriocarcinoma, hydatidiform mole, and certain nontrophoblastic malignancies also result in detectable urinary HCG levels. Sensitivity = 20mIU/mL. COMPLETE URINALYSIS WITH REFLEX TO CULTURE Narrative: The following orders were created for panel order Complete Urinalysis with reflex to Culture. Procedure Abnormality Status --------- --- (more content not included)... Normal [facility] HCG QUALITATIVE URINEon Beta HCG ( test) Ql (U) Negative Normal Negative [facility] Comment on above: Result Comment: Plea se note: Very dilute urine specimens, as indicated by a low specific gravity, may not contain new accounts banking representative levels of hCG. If is still suspected, a first morning urine specimen should be collected 48 hours later and tested. ORDER COMMENTS: is the most common reason for HCG in urine, although choriocarcinoma, hydatidiform mole, and certain nontrophoblastic malignancies also result in detectable urinary HCG levels. Sensitivity = 20mIU/mL. Performed By: #### L AB17 #### Head Waitress: AUDRA GAUTHIER ([phone]) [facility] [address] [place] [address] Urinalysis complete panel (U )on 08-26-2023 Bilirubin Ql (U) Negative Negative mg/dL [facility] Clarity (U) Clear Clear [facility] Color (U) Colorless Lt. Yellow [facility] Glucose Ql (U) Normal Normal (<70) mg/dL [facility] Hemoglobin Ql (U) Negative Negative mg/dL [facility] Interpretation and review of laboratory results Abnormal [facility] Ketones (U) [Mass/Vol] Negative Negat kandy mg/dL [facility] Leukocyte esterase Test strip Ql (U) Negative Negative Jin/uL [facility] Nitrite Ql (U) Negative Negative [facility] th pH (U) 5.5 [pH] 5.0 - 8.0 pH [facility] Protein (U) [Mass/Vol] Negative Negat kandy mg/dL [facility] Specific gravity (U) [Rel density] 1.004 Low 1.005 - 1.030 [facility] Urobilinogen (U) [Mass/Vol] Normal Normal (0-1) mg/dL [facility] hCG, urine, qualitativeOrder ed By: Nora Maxwell on 08-26-2023 Beta HCG ( test) Ql Negative Negative [facility] Comment on above: Please note: Very di lute urine specimens, as indicated by a low specific gravity, may not contain new accounts banking representative levels of hCG. If is still suspected, a first morning urine specimen should be collected 48 hours later and tested. Beta HCG ( test) Ql (U) is the most common reason for HCG in urine, although choriocarcinoma, hydatidiform mole, and certain nontrophoblastic malignancies also result in detectable urinary HCG levels. Sensitivity = 20mIU/mL. [facility] CNOVon 08-13-2023 CNOV Office Visit (WALKWA ) GELY HICKS ([id number]) 2000 F Date Time Provider Department 08/13/23 4:45 PM DORA MATHEW During your visit today, we recorded the following information about you: Pulse Respiration Blood pressure 107/minute 16/minute 137/99 Dora Mathew APRN.[facility] 08/13/2023 5:16 PM Signed This note was created using Okan. Subjective Gely Hicks is a 23 year old female. HPI by patient: Gely is a 23 year old presenting to the office with the complaint of URI Started approximately 3 days ago Associated symptoms include congestion, sore throat, body aches, ANNA Denies any other concerns Covid Immunization Dates Overdue - Covid-19 Vaccine (1) Never done No completion, postpone, frequency change, or communication history exists for this topic. Sick contacts: yes, works in [place] and Covid cases there Smoking history/second hand smoke: no OTC nothing NO antibiotic use in the last 60 days. ALLERGIES Cephalexin Rash Family History Reviewed Including Cardiac Diseases, Psychiatric Diseases, AND Substance Abuse Problem: other (Uterine fibroid-hysterectomy) Relation: Mother Age of Onset: (Not Specified) Comment: BRCA negative Problem: Ovarian cancer Relation: Maternal Grandmother Age of Onset: 61 Social History Tobacco Use Smoking status: Never Smokeless tobacco: Never Vaping Use Vaping Use: current everyday user Substances: Nicotine Alcohol use: Not Currently Drug use: No Review of Systems Constitutional: Positive for fatigue. Negative for chills and fever. HENT: Positive for congestion, postnasal drip, rhinorrhea and sore throat. Negative for ear pain. Respiratory: Positive for cough. Cardiovascular: Negative for chest pain. Musculoskeletal: Positive for myalgias. Allergic/Immunologic: Negative for immunocompromised state. Neurological: Positive for headaches. Hematological: Negative for adenopathy. Objective BP 137/99 (BP Site: Right Arm, BP Position: Sitting, BP Cuff Size: Regular Adult) Pulse 107 Resp 16 LMP 06/19/2023 (Approximate) SpO2 100% Physical Exam Vitals and nursing note reviewed. HENT: Right Ear: Tympanic membrane and ear canal normal. Left Ear: Tympanic membrane and ear canal normal. Nose: Congestion and rhinorrhea present. Mouth/Throat: Pharynx: Uvula midline. Posterior oropharyngeal erythema present. No oropharyngeal exudate. Cardiovascular: Rate and Rhythm: Normal rate and regular rhythm. Heart sounds: Normal heart sounds. Pulmonary: Effort: Pulmonary effort is normal. No respiratory distress. Breath sounds: Normal breath sounds. No stridor. No wheezing, rhonchi or rales. Chest: Chest wall: No tenderness. Lymphadenopathy: Cervical: No cervical adenopathy. Skin: General: Skin is warm and dry. Neurological: Mental Status: She is alert and oriented to person, place, and time. Assessment and Plan ASSESSMENT/PLAN: 1. Viral URI with cough - ICD9: 465.9, ICD10: J06.9 - Discussed viral etiology and rationale for treatment. - Symptomatic treatment with prn analgesia - Supportive care with fluids and rest - COVID AND INFLUENZA A/B AND RSV NAAT, ROUTINE - OXYMETAZOLINE 0.05 % NASAL SPRAY - GUAIFENESIN ER 600 MG TABLET, EXTENDED RELEASE 12 HR Dora Mathew APRN.CNP Medical Decision Making: Problems: Moderate: New problem with uncertain prognosis Data: Unique test(s) ordered: 3+ Risk: Moderate: Drug management Medical Decision Making Level: 4 - Moderate Allergies As of Date: 08/13/2023 Noted Allergy Reaction CEPHALEXIN 05/15/2019 2 - Rash Date Reviewed: 08/13/2023 Reviewed by: Megan Colin - Fully Assessed Reason for Visit: Strep Test [248] Primary Visit Diagnosis:Viral URI with cough [J06.9] Order(s):COVID AND INFLUENZA A/B AND RSV NAAT, ROUTINE [SQCVFLRS] Order #: [id number]. #:[id number] oxymetazoline (AFRIN, OXYMETAZOLINE,) 0.05 % nasal sprayUse 2-3 Sprays in each nostril two times a day. Use as directed. For a maximum of 3 (three) days.Disp: 22 mLRfl: 0 guaiFENesin (MUCINEX) 600 mg 12 hr tabletTake 1 tablet by mouth two times a day.Disp: 30 tabletRfl: 0 STREP A MOLECULAR (POC) [0180192] Order #: [id number]. #:[id number] Prescriptions as of 08/13/2023 - oxymetazoline (AFRIN, OXYMETAZOLINE,) 0.05 % nasal spray Use 2-3 Sprays in each nostril two times a day. Use as directed. For a maximum of 3 (three) days. - guaiFENesin (MUCINEX) 600 mg 12 hr tablet Take 1 tablet by mouth two times a day. - vit,marcia 74/iron/folic ( VITAMIN 1+1 ORAL) Take by mouth. - PNV Comb #3-[id number]-Ynjec 3-FA (COMPLETE DHA) 29 mg iron- 1 mg-200 mg cmpk 1 by mouth daily - polyethylene glycol 3350 (MIRALAX) 17 gram/dose powder Dissolve dose in 4 - 8 ounces of liquid and take as directed. - Sennosides (SENNA) 8.6 mg cap (more content not included)... Normal [facility] COVID AND INFLUENZA A/B AND RSV NAAT, ROUTINEon 08-13-2023 SARS-CoV-2 (COVID-19) RNA MARCY+probe Ql (Unsp spec) COVID 19 RESULT: Detected The method used is RT-PCR or an equivalent NAAT method. Reference Range (the expected result in uninfected individuals): Not detected INFLUENZA A PCR: Not detected INFLUENZA B PCR: Not detected RSV PCR: Not detected Abnormal [facility] Comment on above: Performed By: #### C VFLRS #### [facility] CLIA [id number] [address] [place] [address] STATES OF [facility] CNOVon 07-13-2023 CNOV Office Visit (WALKWA ) GELY HICKS ([id number]) 2000 F Date Time Provider Department 07/13/23 10:45 AM DORA MATHEW During your visit today, we recorded the following information about you: Temperature Pulse Respiration Blood pressure 97.5 degrees 114/minute 18/minute 134/82 Weight Height 52.1 kg 1.473 m Dora Mathew APRN.[facility] 07/13/2023 11:06 AM Signed This note was created using Okan. Subjective Gely Hicks is a 23 year old female. HPI by patient: Gely is a 23 year old presenting to the office with the complaint of constipation Started approximately 4 days ago Associated symptoms include fatigue, constipated, nausea. Has not tried anything for this Denies any other concerns Covid Immunization Dates Overdue - Covid-19 Vaccine (1) Overdue - never done No completion, postpone, frequency change, or communication history exists for this topic. 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 ALLERGIES Cephalexin Rash Family History Reviewed Including Cardiac Diseases, Psychiatric Diseases, AND Substance Abuse Problem: other (Uterine fibroid-hysterectomy) Relation: Mother Age of Onset: (Not Specified) Comment: BRCA negative Problem: Ovarian cancer Relation: Maternal Grandmother Age of Onset: 61 Social History Tobacco Use Smoking status: Never Smokeless tobacco: Never Vaping Use Vaping Use: current everyday user Substances: Nicotine Alcohol use: Not Currently Drug use: No Review of Systems Constitutional: Positive for fatigue. Negative for chills and fever. HENT: Negative for congestion, ear pain, rhinorrhea and sore throat. Respiratory: Negative for cough. Cardiovascular: Negative for chest pain. Gastrointestinal: Positive for abdominal distention, abdominal pain and constipation. Allergic/Immunologic: Negative for immunocompromised state. Hematological: Negative for adenopathy. Objective LMP 05/03/2023 (Approximate) Physical Exam Vitals and nursing note reviewed. HENT: Right Ear: Tympanic membrane and ear canal normal. Left Ear: Tympanic membrane and ear canal normal. Nose: Nose normal. Mouth/Throat: Pharynx: Uvula midline. Cardiovascular: Rate and Rhythm: Normal rate and regular rhythm. Heart sounds: Normal heart sounds. Pulmonary: Effort: Pulmonary effort is normal. Breath sounds: Normal breath sounds. Abdominal: General: Bowel sounds are normal. There is no distension. Palpations: There is no mass. Tenderness: There is no abdominal tenderness. There is no right CVA tenderness, left CVA tenderness or guarding. Negative signs include Benoit's sign and McBurney's sign. Lymphadenopathy: Cervical: No cervical adenopathy. Skin: General: Skin is warm and dry. Neurological: Mental Status: She is alert and oriented to person, place, and time. Assessment and Plan ASSESSMENT/PLAN: 1. Acute constipation - ICD9: 564.00, ICD10: K59.00 (primary diagnosis) - Supportive care recs provided - POLYETHYLENE GLYCOL 3350 17 GRAM/DOSE ORAL POWDER - SENNA 8.6 MG CAPSULE - COVID AND INFLUENZA A/B AND RSV NAAT, ROUTINE 2. Fatigue, unspecified type - ICD9: 780.79, ICD10: R53.83 - Covid, RSV, Flu Dora Mathew APRN.CNP Medical Decision Making: Problems: Moderate: New problem with uncertain prognosis Data: Unique test(s) ordered: 3+ Risk: Moderate: Drug management Medical Decision Making Level: 4 - Moderate Droa Mathew APRN.CNP 07/13/2023 10:57 AM Signed Constipation Constipation can be an unpleasant topic to talk about. Most people have experienced constipation at some point in their life. Though typically not serious, constipation can be both painful and frustrating. What is constipation? Constipation occurs when bowel movements become difficult or less frequent than normal. The frequency or time between bowel movements ranges widely from person to person. Some people have bowel movements several times a day while others only one to two times a week. Going longer than three days without a bowel movement is too long. After three days, the stool becomes harder and more difficult to pass. What causes constipation? Constipation is most commonly caused by inadequate fiber in the diet or a disruption of the regular diet or routine. Chronic constipation may be due to a poor diet, dehydration, certain medications (such as antidepressants, strong pain medications), stress, or the pressure of other activities that force you to ignore the urge to empty the bowel. Various medical conditions can also cause or aggravate constipation. Some of the more common medical conditions that cause constipation include endocrine problems, such as decreased function of the thyroid gland or diabet (more content not included)... Normal [facility] COVID AND INFLUENZA A/B AND RSV NAAT, ROUTINEon 07-13-2023 SARS-CoV-2 (COVID-19) RNA MARCY+probe Ql (Unsp spec) COVID 19 RESULT: Not detected The method used is RT-PCR or an equivalent NAAT method. Reference Range (the expected result in uninfected individuals): Not detected INFLUENZA A PCR: Not detected INFLUENZA B PCR: Not detected RSV PCR: Not detected Normal [facility] Comment on above: Performed By: #### C VFLRS #### [facility] CLIA [id number] [address] [place] [address] OF [facility] Laboratory - Drug toxicology Ordered By: Ike Andersen on 06-08-2023 Amphetamines Screen method >1000 ng/mL Ql (U) Negative [facility] Barbiturates Screen method >200 ng/mL Ql (U) Negative [facility] Benzodiazepines Ql (U) Negative [facility] Methadone Screen Ql (U) Negative [facility] Opiates Screen Ql (U) Negative [facility] oxyCODONE Ql (U) Negative [facility] alth Phencyclidine Ql (U) Negative [facility] No Panel InformationOrdered By: Ike Andersen on 06-08-2023 COCAINE METAB. SCREEN Negative [facility] The expected value for all of the drugs listed above is Negative. The following drugs or drug groups have been screened for by Immunoassay at the following thresholds: Amphetamine class (1000 ng/mL) Barbiturates (200 ng/mL) Benzodiazepines (200 ng/mL) Cocaine (300 ng/mL) Methadone (300 ng/mL) Opiates (300 ng/mL) Oxycodone (100 ng/mL) PCP (25 ng/mL) NOTE: These results are for medical treatment only. Analysis performed using non-forensic procedures. POSITIVE results are NOT confirmed by a more specific alternative method unless requested. If confirmation is needed, request confirmation under separate order. [facility] Laboratory - Chemistry and C hemistry - challengeOrdered By: Clint Valiente on 06-07-2023 Beta HCG ( test) Ql Negative Negative [facility] Comment on above: Please note: Very di lute urine specimens, as indicated by a low specific gravity, may not contain new accounts banking representative levels of hCG. If is still suspected, a first morning urine specimen should be collected 48 hours later and tested. Beta HCG ( test) Ql (U) is the most common reason for HCG in urine, although choriocarcinoma, hydatidiform mole, and certain nontrophoblastic malignancies also result in detectable urinary HCG levels. Sensitivity = 20mIU/mL. [facility] No Panel InformationOrdered By: Clint Valiente on 06-07-2023 [facility] ED NOTEon 04-16-2023 ED NOTE HNO ID: [id number] Author: Priscilla Wolfe RN Service: Nursing Author Type: Registered Nurse Type: ED Notes Filed: 04/15/2023 11:12 PM Note Text: Pt verbalizes understanding of discharge instructions. Pt stable and ambulatory. IV removed. Pleasant and happy with care. Pt to leave with mother. No further questions at this time. [facility] HEALTHon 04-15-2023 ALLIED HEALTH HNO ID: [id number] Author: Grant Prado RT(R) Service: Radiology Author Type: Technologist Type: [facility] Filed: 04/15/2023 7:01 PM Note Text: Radiology Service Progress Note DATE OF SERVICE: April 15, 2023 TIME: 7:01 PM PATIENT IDENTITY VERIFICATION COMPLETED USING TWO (2) STANDARD IDENTIFIERS: Name and Date of confirmed by patient verbally and Name and Date of confirmed by identification band. FALL SCREENING: Has the patient had 2 falls in the last year or 1 fall with injury or currently using an Ambulatory Assistive Device (Walker, Cane, Wheelchair, Crutches, etc.)? Emergency Room Patient: Screened in ED PATIENT GENDER DATA: Female. status: : No status: NO. PATIENT RELEVANT IMPLANT DATA REVIEWED: Not Applicable ALLERGIES: Reviewed and unchanged CONTRAST ALLERGY: NO. EXAM: CT -CONTRAST INDUCED NEPHROPATHY RISK FACTORS: Not applicable CREATININE: Creatinine Date Value Ref Range Status 04/15/2023 0.44 (L) 0.58 - 0.96 mg/dL Final Estimated Glomerular Filtration Rate Date Value Ref Range Status 04/15/2023 139 >=60 mL/min/1.73m? Final Comment: Estimated Glomerular Filtration Rate (eGFR) is calculated using the 2020 CKD-EPI creatinine equation. This equation utilizes serum creatinine, sex, and age as parameters. The creatinine assay has traceable calibration to isotope dilution-mass spectrometry. Refer to KDIGO guidelines for clinical interpretation. In patients with unstable renal function, e.g. those with acute kidney injury, the eGFR may not accurately reflect actual GFR. P.O.C.T. RESULTS: POC done: Yes, See Lab Tab April 15, 2023 TREATMENT: N/A PERIPHERAL IV DATA: Inpatient - refer to LDA documentation RADIOLOGY DEPARTMENT: CT; Exam(s) Completed: Chest and Neck SIGNATURE: Grant Prado RT(R) PATIENT NAME: Gely Hicks DATE: April 15, 2023 TIME: 7:01 PM [facility] CBC W Auto Differential pane l (Bld)on 04-15-2023 Basophils (Bld) [#/Vol] 0.04 10*3/uL Normal <0.11 [facility] Comment on above: Order Comment: Masoud valdez Type: BLOOD SPECIMEN Ordering Facility: [facility] Address: [address] [place] [address] Performed By: #### 5 7021-8 #### [facility] CLIA [id number] [address] [place] [address] [place] Basophils/100 WBC (Bld) 1.0 % [facility] Comment on above: Order Comment: Masoud valdez Type: BLOOD SPECIMEN Ordering Facility: [facility] Address: [address] [place] [address] Performed By: #### 5 7021-8 #### [facility] CLIA [id number] [address] [place] Differential cell count method Nom (Bld) Auto Normal [facility] Comment on above: Order Comment: Masoud valdez Type: BLOOD SPECIMEN Ordering Facility: [facility] Address: [address] [place] [address] Performed By: #### 5 7021-8 #### [facility] CLIA [id number] [address] [place] [address] [place] Eosinophils (Bld) [#/Vol] 10*3/uL Normal <0.46 [facility] Comment on above: Order Comment: Masoud valdez Type: BLOOD SPECIMEN Ordering Facility: [facility] Address: [address] [place] [address] Performed By: #### 5 7021-8 #### [facility] CLIA [id number] [address] [place] Eosinophils/100 WBC (Bld) 0.5 % Normal [facility] Comment on above: Order Comment: Speci men Type: BLOOD SPECIMEN Ordering Facility: [facility] Address: [address] [place] [address] Performed By: #### 5 7021-8 #### [facility] CLIA [id number] [address] OF [place] Erythrocyte distribution width (RBC) [Ratio] 13.4 % Normal 11.5-15.0 [facility] Comment on above: Order Comment: Speci men Type: BLOOD SPECIMEN Ordering Facility: [facility] Address: [address] [place] [address] Performed By: #### 5 7021-8 #### [facility] CLIA [id number] [address] [place] Hematocrit (Bld) [Volume fraction] 35.8 % Low 36.0-46.0 [facility] Comment on above: Order Comment: Speci men Type: BLOOD SPECIMEN Ordering Facility: [facility] Address: [address] [place] [address] Performed By: #### 5 7021-8 #### [facility] CLIA [id number] [address] [place] Hemoglobin (Bld) [Mass/Vol] 13.0 g/dL Normal 11.5-15.5 [facility] Comment on above: Order Comment: Speci men Type: BLOOD SPECIMEN Ordering Facility: [facility] Address: [address] [place] [address] Performed By: #### 5 7021-8 #### [facility] CLIA [id number] [address] Immature granulocytes (Bld) [#/Vol] 10*3/uL Normal <0.10 [facility] Comment on above: Order Comment: Speci men Type: BLOOD SPECIMEN Ordering Facility: [facility] Address: [address] [place] [address] Performed By: #### 5 7021-8 #### [facility] CLIA [id number] [address] Immature granulocytes/100 WBC (Bld) 0.3 % Normal [facility] Comment on above: Order Comment: Speci men Type: BLOOD SPECIMEN Ordering Facility: [facility] Address: [address] [place] [address] Performed By: #### 5 7021-8 #### [facility] CLIA [id number] [address] [place] Lymphocytes (Bld) [#/Vol] 1.39 10*3/uL Normal 1.00-4.00 [facility] Comment on above: Order Comment: Speci men Type: BLOOD SPECIMEN Ordering Facility: [facility] Address: [address] [place] [address] Performed By: #### 5 7021-8 #### [facility] CLIA [id number] [address] Lymphocytes/100 WBC (Bld) 35.7 % Normal [facility] Comment on above: Order Comment: Speci men Type: BLOOD SPECIMEN Ordering Facility: [facility] Address: [address] [place] [address] Performed By: #### 5 7021-8 #### [facility] CLIA [id number] [address] MCH (RBC) [Entitic mass] 33.6 pg Normal 26.0-34.0 [facility] Comment on above: Order Comment: Speci men Type: BLOOD SPECIMEN Ordering Facility: [facility] Address: [address] [place] [address] Performed By: #### 5 7021-8 #### [facility] CLIA [id number] [address] MCHC (RBC) [Mass/Vol] 36.3 g/dL High 30.5-36.0 [facility] Comment on above: Order Comment: Speci men Type: BLOOD SPECIMEN [facility] [facility] Address: [address] [place], [place] [address] Performed By: #### 5 7021-8 #### [facility] CLIA [id number] [address] [place] [facility] MCV (RBC) [Entitic vol] 92.5 fL Normal 80.0-100.0 [facility] Comment on above: Order Comment: Speci men Type: BLOOD SPECIMEN Ordering Facility: [facility] Address: [address] [address] Performed By: #### 5 7021-8 #### [facility] CLIA [id number] [address] OF [place] Monocytes (Bld) [#/Vol] 0.49 10*3/uL Normal <0.87 [facility] Comment on above: Order Comment: Speci men Type: BLOOD SPECIMEN Ordering Facility: [facility] Address: [address] [address] Performed By: #### 5 7021-8 #### [facility] CLIA [id number] [address] Monocytes/100 WBC (Bld) 12.6 % Normal [facility] Comment on above: Order Comment: Speci men Type: BLOOD SPECIMEN Ordering Facility: [facility] Address: [address] [address] Performed By: #### 5 7021-8 #### [facility] CLIA [id number] [address] OF [place] Neutrophils (Bld) [#/Vol] 1.94 10*3/uL Normal 1.45-7.50 [facility] Comment on above: Order Comment: Speci men Type: BLOOD SPECIMEN Ordering Facility: [facility] Address: [address] [address] Performed By: #### 5 7021-8 #### [facility] CLIA [id number] [address] Neutrophils/100 WBC (Bld) 49.9 % Normal [facility] Comment on above: Order Comment: Speci men Type: BLOOD SPECIMEN Ordering Facility: [facility] Address: [address] [place] [address] Performed By: #### 5 7021-8 #### [facility] CLIA [id number] [address] [place] Nucleated RBC (Bld) [#/Vol] 10*3/uL Normal <0.01 [facility] Comment on above: Order Comment: Speci men Type: BLOOD SPECIMEN Ordering Facility: [facility] Address: [address] [place] [address] Performed By: #### 5 7021-8 #### [facility] CLIA [id number] [address] OF [place] Nucleated RBC/100 WBC (Bld) [Ratio] 0.0 /100 WBC Normal [facility] Comment on above: Order Comment: Speci men Type: BLOOD SPECIMEN Ordering Facility: [facility] Address: [address] [place] [address] Performed By: #### 5 7021-8 #### [facility] CLIA [id number] [address] OF [facility] Platelet mean volume (Bld) [Entitic vol] 9.0 fL Normal 9.0-12.7 [facility] Comment on above: Order Comment: Speci men Type: BLOOD SPECIMEN Ordering Facility: [facility] Address: [address] [address] Performed By: #### 5 7021-8 #### [facility] CLIA [id number] [address] [place] Platelets (Bld) [#/Vol] 191 10*3/uL Normal 150-400 [facility] Comment on above: Order Comment: Speci men Type: BLOOD SPECIMEN Ordering Facility: [facility] Address: [address] [address] Performed By: #### 5 7021-8 #### [facility] CLIA [id number] [address] [place] RBC (Bld) [#/Vol] 3.87 10*6/uL Low 3.90-5.20 [facility] Comment on above: Order Comment: Speci men Type: BLOOD SPECIMEN Ordering Facility: [facility] Address: [address] [place] [address] Performed By: #### 5 7021-8 #### [facility] CLIA [id number] [address] [id number] [facility] WBC (Bld) [#/Vol] 3.89 10*3/uL Normal 3.70-11.00 [facility] Comment on above: Order Comment: Speci men Type: BLOOD SPECIMEN Ordering Facility: [facility] Address: [address] [place] [address] Performed By: #### 5 7021-8 #### [facility] CLIA [id number] [address] CHEST W IVCONon 3 CT CHEST W IVCON * * *Final Report* * * DATE OF EXAM: Apr 15 2023 7:28PM [facility] [place] 0539 - CT CHEST W IVCON / PROCEDURE REASON: Chest trauma, blunt * * * * Physician Interpretation * * * * EXAMINATION: CHEST CT WITH CONTRAST CLINICAL HISTORY: Chest trauma Technique: Spiral CT acquisition of the chest from the thoracic inlet to the upper abdomen following IV contrast. MQ: CTCW_6 Contrast: 100 mL Omnipaque [address] Radiation dose: Integrated Dose-length product (DLP) for this visit = 512.86 mGy*cm CT Dose Reduction Employed: Automated exposure control(AEC) and iterative recon Comparison: Type of study and date/time RESULT: Limitations: None. Lines, tubes, and devices: None. Lung parenchyma and airways: No consolidation. No suspicious pulmonary nodule. The central airways are patent. Pleural space: No pleural effusion or pneumothorax. No pleural thickening. Lower neck, lymph nodes, and mediastinum: The imaged thyroid gland is normal. No lymphadenopathy in the supraclavicular, axillary, mediastinal, or hilar regions. Heart, pericardium, and thoracic vessels: The thoracic aorta and main pulmonary artery are normal in caliber. The cardiac chambers are normal in size. No coronary artery atherosclerotic calcifications are noted, although the study is not optimized for coronary assessment. No pericardial effusion or thickening. Bones and soft tissues: No destructive bone lesion. Chest wall is unremarkable. Upper abdomen: No abnormality in the imaged upper abdomen. Contract Modeler (topogram) images: No additional findings. IMPRESSION: No CT evidence of acute abnormality. End Packer: LORENZO Transcribe Date/Time: Apr 15 2023 7:39P Dictated by : CHANDNI GARNICA MD This examination was interpreted and the report reviewed and electronically signed by: CHANDNI GARNICA MD on Apr 15 2023 7:45PM EST [id number] N [facility] CT NECK SOFT TISSUE W IVCONo n 04-15-2023 CT NECK SOFT TISSUE W IVCON * * *Final Report* * * DATE OF EXAM: Apr 15 2023 7:28PM [facility] 0013 - CT NECK SOFT TISSUE W IVCON / PROCEDURE REASON: Tracheal trauma (strangulation) * * * * Physician Interpretation * * * * CT of the neck with contrast. HISTORY: Tracheal strangulation TECHNIQUE: Routine neck CT with contrast. CT Contrast: Omnipaque 350 CT Contrast Volume (ml): 100 CT Contrast Route of Administration: IV CT Dose-Length Product (DLP): 512.[address] Dose Reduction Employed: Yes Radiation Shielding Employed: N/A COMPARISON: None RESULT: No crusher tender images provided with this neck examination. No evidence of soft tissue contusion or fluid collection. No fracture is detected. Hyoid bone and laryngeal cartilage are intact by CT criteria. The airway is patent to the kiana. Visible intracranial contents, orbits, blue line operator spaces, parotid and submandibular glands, parapharyngeal fat pads, retropharyngeal, and prevertebral soft tissue spaces are within normal limits. Thyroid gland is normal. There is no lymphadenopathy. A separate chest exam has been performed and will be reported by the thoracic radiology group. IMPRESSION: NORMAL CT OF THE NECK WITH CONTRAST. End Packer: [facility] Transcribe Date/Time: Apr 15 2023 7:44P Dictated by : ERVIN JARQUIN MD This examination was interpreted and the report reviewed and electronically signed by: ERVIN JARQUIN MD on Apr 15 2023 7:55PM EST [id number] N [facility] Comprehensive metabolic 2000 panelon 04-15-2023 Albumin [Mass/Vol] 4.6 g/dL Normal 3.9-4.9 [facility] Comment on above: Order Comment: Speci men Type: BLOOD SPECIMEN Ordering Facility: [facility] Address: [address] [address] Performed By: #### 2 4323-8 #### [facility] CLIA [id number] [address] ALP [Catalytic activity/Vol] 46 U/L Normal 34-123 [facility] Comment on above: Order Comment: Speci men Type: BLOOD SPECIMEN Ordering Facility: [facility] Address: [address] [address] Performed By: #### 2 4323-8 #### [facility] CLIA [id number] [address] [place] ALT [Catalytic activity/Vol] 35 U/L Normal 7-38 [facility] Comment on above: Order Comment: Speci men Type: BLOOD SPECIMEN Ordering Facility: [facility] Address: [address] [place] [address] Performed By: #### 2 4323-8 #### [facility] CLIA [id number] [address] [place] Anion gap [Moles/Vol] 15 mmol/L Normal 9-18 [facility] Comment on above: Order Comment: Speci men Type: BLOOD SPECIMEN Ordering Facility: [facility] Address: [address] [place] [address] Performed By: #### 2 4323-8 #### [facility] CLIA [id number] [address] [place] AST [Catalytic activity/Vol] 82 U/L High 13-35 [facility] Comment on above: Order Comment: Speci men Type: BLOOD SPECIMEN Ordering Facility: [facility] Address: [address] [place] [address] Performed By: #### 2 4323-8 #### [facility] CLIA [id number] [address] Bilirubin [Mass/Vol] 0.5 mg/dL Normal 0.2-1.3 [facility] Comment on above: Order Comment: Speci men Type: BLOOD SPECIMEN Ordering Facility: [facility] Address: [address] [address] Performed By: #### 2 4323-8 #### [facility] CLIA [id number] [address] [place] Calcium [Mass/Vol] 9.4 mg/dL Normal 8.5-10.2 [facility] Comment on above: Order Comment: Speci men Type: BLOOD SPECIMEN Ordering Facility: [facility] Address: [address] [place] [address] Performed By: #### 2 4323-8 #### [facility] CLIA [id number] [address] [place] Chloride [Moles/Vol] 92 mmol/L Low 97-105 [facility] Comment on above: Order Comment: Speci men Type: BLOOD SPECIMEN Ordering Facility: [facility] Address: [address] [place] [address] Performed By: #### 2 4323-8 #### [facility] CLIA [id number] [address] STATES OF [facility] CO2 [Moles/Vol] 23 mmol/L Normal 22-30 [facility] Comment on above: Order Comment: Speci men Type: BLOOD SPECIMEN Ordering Facility: [facility] Address: [address] [place] [address] Performed By: #### 2 4323-8 #### [facility] CLIA [id number] [address] OF [facility] Creatinine [Mass/Vol] 0.44 mg/dL Low 0.58-0.96 [facility] Comment on above: Order Comment: Speci men Type: BLOOD SPECIMEN Ordering Facility: [facility] Address: [address] [address] Performed By: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 mmol/L 3.5 - 5.1 mmol/L [facility] Sodium [Moles/Vol] 137 mmol/L 135 - 145 mmol/L [facility] Urea nitrogen [Mass/Vol] 11 mg/dL 7 - 17 mg/dL [facility] CBC panel Auto (Bld)Ordered By: Venkat Adan on 11-21-2022 Erythrocyte distribution width (RBC) [Ratio] 16.9 % High 11.5 - 14.5 % [facility] Hematocrit (Bld) [Volume fraction] 41.3 % 35.0 - 47.0 % [facility] Hemoglobin (Bld) [Mass/Vol] 13.9 g/dL 11.7 - 16.0 g/dL [facility] Interpretation and review of laboratory results Abnormal [facility] MCH (RBC) [Entitic mass] 31.4 pg 26.0 - 34.0 pg [facility] MCHC (RBC) [Mass/Vol] 33.7 % 32.0 - 36.0 % [facility] MCV (RBC) [Entitic vol] 93.2 fL 80.0 - 98.0 fL [facility] Platelet mean volume (Bld) [Entitic vol] 5.9 fL Low 7.4 - 12.4 fL [facility] Platelets (Bld) [#/Vol] 210 10*3/uL 140 - 440 10*3/uL [facility] RBC (Bld) [#/Vol] 4.44 10*6/uL 3.8 - 5.20 10*6/uL [facility] WBC (Bld) [#/Vol] 7.0 10*3/uL 3.6 - 10.7 10*3/uL [facility] CT Head WO contraston 2022 Patient Name: GELY HICKS : 2000 Exam Date/Time: 11/21/2022 13:32 Procedure: CT HEAD WO IV CONTRAST Ordering Provider: MOODY TAMI Reason For Exam: Headache, sudden, severe CT HEAD WO IV CONTRAST, CT HEAD NECK ANGIO W AND WO IV CONTRAST HISTORY: Headache, sudden, severe TECHNIQUE: CT head without contrast and CTA head and neck. Post-processed 3-D images {Maximum intensity Projection (MIP), Volume-rendered (VR), or Surface shaded display images (SSD)} were created, reviewed and archived. Dose reduction was employed with automated exposure control. Contrast: IV administration of 75 cc isovue 370 COMPARISON: None. RESULT: BRAIN: Acute change: No evidence of an acute intracranial process. Hemorrhage: No evidence of acute intracranial hemorrhage. Mass Lesion / Mass Effect: No evidence of an intracranial mass, extra-axial fluid collection, or significant localized mass effect. Chronic change: None apparent. Parenchyma: No significant parenchymal volume loss. Ventricles: Normal caliber and morphology. Other: The calvarium, skull base, imaged paranasal sinuses, mastoids, orbits and extracranial soft tissues are unremarkable. NECK: Soft tissues: Nose piercing. Spine: Straightening of normal cervical lordosis, perhaps positional. No significant spondylosis. Lungs: The imaged lungs are clear. CT ARTERIOGRAM: EXTRACRANIAL CIRCULATION: Aortic arch and branch vessels: Common origin of the innominate and left common carotid arteries, normal variant. No significant stenosis in the proximal brachiocephalic vessels. Carotid Stenosis: Right Common: No significant stenosis. Right Internal Carotid Plaque: No significant plaque formation. Right Internal Carotid Stenosis (% by NASCET Criteria): 0% Left Common: No significant stenosis. Left Internal Carotid Plaque: No significant plaque formation. Left Internal Carotid Stenosis (% by NASCET Criteria): 0% Cervical Vertebral Arteries: Patency: Bilateral Dominance: Right. Left is developmentally small in caliber. INTRACRANIAL CIRCULATION: Anterior Circulation: The ICAs, MCAs, ACAs and proximal branches are patent and normal in caliber without occlusion or high-grade stenosis. Tiny outpouchings at the posterior aspect of the ICAs bilaterally, likely infundibula of the P-comms. There are otherwise no aneurysms. Vertebrobasilar Circulation: The V4 segments (right dominant), basilar artery and brass chaser are patent and normal in caliber. The proximal SCAs, right AICA and left PICA are patent. The left AICA and right PICA origins are not well visualized, likely technical. The superior sagittal sinus, straight sinus, confluence, transverse and sigmoid sinuses are patent. Contract Modeler (topogram) images: No additional findings. [facility] Emmett Kruse MD - 11/21/2022 Patient Name: GELY HICKS : 2000 Exam Date/Time: 11/21/2022 13:32 Procedure: CT HEAD WO IV CONTRAST Ordering Provider: MOODY TAMI Reason For Exam: Headache, sudden, severe CT HEAD WO IV CONTRAST, CT HEAD NECK ANGIO W AND WO IV CONTRAST HISTORY: Headache, sudden, severe TECHNIQUE: CT head without contrast and CTA head and neck. Post-processed 3-D images {Maximum intensity Projection (MIP), Volume-rendered (VR), or Surface shaded display images (SSD)} were created, reviewed and archived. Dose reduction was employed with automated exposure control. Contrast: IV administration of 75 cc isovue 370 COMPARISON: None. RESULT: BRAIN: Acute change: No evidence of an acute intracranial process. Hemorrhage: No evidence of acute intracranial hemorrhage. Mass Lesion / Mass Effect: No evidence of an intracranial mass, extra-axial fluid collection, or significant localized mass effect. Chronic change: None apparent. Parenchyma: No significant parenchymal volume loss. Ventricles: Normal caliber and morphology. Other: The calvarium, skull base, imaged paranasal sinuses, mastoids, orbits and extracranial soft tissues are unremarkable. NECK: Soft tissues: Nose piercing. Spine: Straightening of normal cervical lordosis, perhaps positional. No significant spondylosis. Lungs: The imaged lungs are clear. CT ARTERIOGRAM: EXTRACRANIAL CIRCULATION: Aortic arch and branch vessels: Common origin of the innominate and left common carotid arteries, normal variant. No significant stenosis in the proximal brachiocephalic vessels. Carotid Stenosis: Right Common: No significant stenosis. Right Internal Carotid Plaque: No significant plaque formation. Right Internal Carotid Stenosis (% by NASCET Criteria): 0% Left Common: No significant stenosis. Left Internal Carotid Plaque: No significant plaque formation. Left Internal Carotid Stenosis (% by NASCET Criteria): 0% Cervical Vertebral Arteries: Patency: Bilateral Dominance: Right. Left is developmentally small in caliber. INTRACRANIAL CIRCULATION: Anterior Circulation: The ICAs, MCAs, ACAs and proximal branches are patent and normal in caliber without occlusion or high-grade stenosis. Tiny outpouchings at the posterior aspect of the ICAs bilaterally, likely infundibula of the P-comms. There are otherwise no aneurysms. Vertebrobasilar Circulation: The V4 segments (right dominant), basilar artery and brass chaser are patent and normal in caliber. The proximal SCAs, right AICA and left PICA are patent. The left AICA and right PICA origins are not well visualized, likely technical. The superior sagittal sinus, straight sinus, confluence, transverse and sigmoid sinuses are patent. Contract Modeler (topogram) images: No additional findings. IMPRESSION: No CT evidence of acute intracranial process. No large vessel occlusion, high-grade stenosis, aneurysm, pseudoaneurysm or dissection in the head or neck. Report Dictated on Electronically Signed By: Emmett Kruse Electronically Signed Date/Time: 11/21/2022 2:21 PM EDT [facility] CTA Head vessels and Neck ve ssels WO and W contrast Mark 11-21-2022 Patient Name: GELY HICKS : 2000 [facility]#: [id number] Exam Date/Time: 11/21/2022 13:32 Procedure: CT HEAD NECK ANGIO W AND WO IV CONTRAST Ordering Provider: MOODY TAMI Reason For Exam: Vision loss, monocular CT HEAD WO IV CONTRAST, CT HEAD NECK ANGIO W AND WO IV CONTRAST HISTORY: Headache, sudden, severe TECHNIQUE: CT head without contrast and CTA head and neck. Post-processed 3-D images {Maximum intensity Projection (MIP), Volume-rendered (VR), or Surface shaded display images (SSD)} were created, reviewed and archived. Dose reduction was employed with automated exposure control. Contrast: IV administration of 75 cc isovue 370 COMPARISON: None. RESULT: BRAIN: Acute change: No evidence of an acute intracranial process. Hemorrhage: No evidence of acute intracranial hemorrhage. Mass Lesion / Mass Effect: No evidence of an intracranial mass, extra-axial fluid collection, or significant localized mass effect. Chronic change: None apparent. Parenchyma: No significant parenchymal volume loss. Ventricles: Normal caliber and morphology. Other: The calvarium, skull base, imaged paranasal sinuses, mastoids, orbits and extracranial soft tissues are unremarkable. NECK: Soft tissues: Nose piercing. Spine: Straightening of normal cervical lordosis, perhaps positional. No significant spondylosis. Lungs: The imaged lungs are clear. CT ARTERIOGRAM: EXTRACRANIAL CIRCULATION: Aortic arch and branch vessels: Common origin of the innominate and left common carotid arteries, normal variant. No significant stenosis in the proximal brachiocephalic vessels. Carotid Stenosis: Right Common: No significant stenosis. Right Internal Carotid Plaque: No significant plaque formation. Right Internal Carotid Stenosis (% by NASCET Criteria): 0% Left Common: No significant stenosis. Left Internal Carotid Plaque: No significant plaque formation. Left Internal Carotid Stenosis (% by NASCET Criteria): 0% Cervical Vertebral Arteries: Patency: Bilateral Dominance: Right. Left is developmentally small in caliber. INTRACRANIAL CIRCULATION: Anterior Circulation: The ICAs, MCAs, ACAs and proximal branches are patent and normal in caliber without occlusion or high-grade stenosis. Tiny outpouchings at the posterior aspect of the ICAs bilaterally, likely infundibula of the P-comms. There are otherwise no aneurysms. Vertebrobasilar Circulation: The V4 segments (right dominant), basilar artery and brass chaser are patent and normal in caliber. The proximal SCAs, right AICA and left PICA are patent. The left AICA and right PICA origins are not well visualized, likely technical. The superior sagittal sinus, straight sinus, confluence, transverse and sigmoid sinuses are patent. Contract Modeler (topogram) images: No additional findings. [facility] Emmett Kruse MD - 11/21/2022 Patient Name: GELY HICKS : 2000 Exam Date/Time: 11/21/2022 13:32 Procedure: CT HEAD NECK ANGIO W AND WO IV CONTRAST Ordering Provider: MOODY TAMI Reason For Exam: Vision loss, monocular CT HEAD WO IV CONTRAST, CT HEAD NECK ANGIO W AND WO IV CONTRAST HISTORY: Headache, sudden, severe TECHNIQUE: CT head without contrast and CTA head and neck. Post-processed 3-D images {Maximum intensity Projection (MIP), Volume-rendered (VR), or Surface shaded display images (SSD)} were created, reviewed and archived. Dose reduction was employed with automated exposure control. Contrast: IV administration of 75 cc isovue 370 COMPARISON: None. RESULT: BRAIN: Acute change: No evidence of an acute intracranial process. Hemorrhage: No evidence of acute intracranial hemorrhage. Mass Lesion / Mass Effect: No evidence of an intracranial mass, extra-axial fluid collection, or significant localized mass effect. Chronic change: None apparent. Parenchyma: No significant parenchymal volume loss. Ventricles: Normal caliber and morphology. Other: The calvarium, skull base, imaged paranasal sinuses, mastoids, orbits and extracranial soft tissues are unremarkable. NECK: Soft tissues: Nose piercing. Spine: Straightening of normal cervical lordosis, perhaps positional. No significant spondylosis. Lungs: The imaged lungs are clear. CT ARTERIOGRAM: EXTRACRANIAL CIRCULATION: Aortic arch and branch vessels: Common origin of the innominate and left common carotid arteries, normal variant. No significant stenosis in the proximal brachiocephalic vessels. Carotid Stenosis: Right Common: No significant stenosis. Right Internal Carotid Plaque: No significant plaque formation. Right Internal Carotid Stenosis (% by NASCET Criteria): 0% Left Common: No significant stenosis. Left Internal Carotid Plaque: No significant plaque formation. Left Internal Carotid Stenosis (% by NASCET Criteria): 0% Cervical Vertebral Arteries: Patency: Bilateral Dominance: Right. Left is developmentally small in caliber. INTRACRANIAL CIRCULATION: Anterior Circulation: The ICAs, MCAs, ACAs and proximal branches are patent and normal in caliber without occlusion or high-grade stenosis. Tiny outpouchings at the posterior aspect of the ICAs bilaterally, likely infundibula of the P-comms. There are otherwise no aneurysms. Vertebrobasilar Circulation: The V4 segments (right dominant), basilar artery and brass chaser are patent and normal in caliber. The proximal SCAs, right AICA and left PICA are patent. The left AICA and right PICA origins are not well visualized, likely technical. The superior sagittal sinus, straight sinus, confluence, transverse and sigmoid sinuses are patent. Contract Modeler (topogram) images: No additional findings. IMPRESSION: No CT evidence of acute intracranial process. No large vessel occlusion, high-grade stenosis, aneurysm, pseudoaneurysm or dissection in the head or neck. Report Dictated on Electronically Signed By: Emmett Kruse Electronically Signed Date/Time: 11/21/2022 2:21 PM EDT [facility] ESR (Bld) [Velocity]on 11-21 Interpretation and review of laboratory results Normal [facility] Sed Rate 19 [facility] Laboratory - Chemistry and C hemistry - challengeOrdered By: Eric Gonzales on 11-21-2022 Beta HCG ( test) Ql Negative Negative [facility] Comment on above: Please note: Very di lute urine specimens, as indicated by a low specific gravity, may not contain new accounts banking representative levels of hCG. If is still suspected, a first morning urine specimen should be collected 48 hours later and tested. Beta HCG ( test) Ql (U) is the most common reason for HCG in urine, although choriocarcinoma, hydatidiform mole, and certain nontrophoblastic malignancies also result in detectable urinary HCG levels. Sensitivity = 20mIU/mL. [place] No Panel Informationon 11-[address] evidence of acute intracranial process. No large vessel occlusion, high-grade stenosis, aneurysm, pseudoaneurysm or dissection in the head or neck. Report Dictated on Electronically Signed By: Emmett Kruse Electronically Signed Date/Time: 11/21/2022 2:21 PM EDT [facility] Radiology Study observation (narrative) [place] No Panel InformationOrdered By: Emmett Kruse on 11-21-2022 [place] Work Phone: No Panel InformationOrdered By: Eric Gonzales on 11-21-2022 [place] STREP A MOLECULAR (POC)on Procedural Control Valid [facility] Strep A (POCT) Negative Negative [facility] Add On Lab Teston 04-27-2022 Add On Accepted [facility] Comment on above: Specimen available & acceptable for analysis. Test Performed by [facility], [address] , [place], [place] [id number] [place] [address] LAB [facility] Add on test from HISon 04-27 Add on test from HIS Accepted Normal [facility] Comment on above: Result Comment: Spec imen available & acceptable for analysis. Performed By: #### E TOH4, CVCCL, CMP3, HEMOG #### [facility] [address] [address] CBC with Auto Differentialon 04-27-2022 Absolute Baso # 0.1 10*3/uL 0 - 0.2 10*3/uL [employer] Work Phone: Absolute Neut # 4.6 10*3/uL 1.8 - 7 10*3/uL [employer] Work Phone: Basophils/100 WBC (Bld) 1.1 % 0 - 2 % [employer] Work Phone: Eosinophils (Bld) [#/Vol] 0.1 10*3/uL 0 - 0.5 10*3/uL [employer] Work Phone: Eosinophils/100 WBC (Bld) 0.7 % Low 1 - 6 % [facility] Work Phone: Granulocytes/100 WBC (Bld) 55.4 % 40 - 80 % [facility] Work Phone: Hematocrit (Bld) [Volume fraction] 38.2 % 35 - 47 % [facility] Work Phone: Hemoglobin (Bld) [Mass/Vol] 13.1 g/dL 11.7 - 16 g/dL [facility] Work Phone: Interpretation and review of laboratory results Abnormal [facility] Work Phone: Lymphocytes (Bld) [#/Vol] 3.0 10*3/uL 1 - 4.3 10*3/uL [facility] Work Phone: Lymphocytes/100 WBC (Bld) 36.8 % 20 - 40 % [facility] Work Phone: MCH (RBC) [Entitic mass] 30.8 pg 26 - 34 pg [facility] Work Phone: MCHC (RBC) [Mass/Vol] 34.3 % 32 - 36 % [facility] Work Phone: MCV (RBC) [Entitic vol] 89.7 fL 79 - 98 fL [facility] Work Phone: Monocytes (Bld) [#/Vol] 0.5 10*3/uL 0 - 0.8 10*3/uL [facility] Work Phone: Monocytes/100 WBC (Bld) 5.6 % 2 - 10 % [facility] Work Phone: Platelet distribution width (Bld) [Ratio] 14.1 % 11.5 - 14.5 % [facility] Work Phone: Platelet mean volume (Bld) [Entitic vol] 8.3 fL 7.4 - 12.4 fL [facility] Work Phone: Comment on above: MPV is a calculated measurement using platelet volume ratio. Platelets (Bld) [#/Vol] 324 10*3/uL 140 - 440 10*3/uL [facility] Work Phone: RBC (Bld) [#/Vol] 4.26 10*6/uL 3.8 - 5.2 10*6/uL [facility] Work Phone: WBC (Bld) [#/Vol] 8.3 10*3/uL 3.6 - 10.7 10*3/uL [facility] Work Phone: Test Performed by [facility], [address] , [address] LAB [facility] Work Phone: Comp Metabolic Panelon 04-27 ALT [Catalytic activity/Vol] 15 U/L Normal 0-34 [facility] Comment on above: Result Comment: The ALT test is performed by an updated assay method. Please note that the reference intervals have been changed and are now sex specific. Performed By: #### E TOH4, QWAL2, CMP3, HEMDF #### [facility] [address] [place] [address] ALP [Catalytic activity/Vol] 51 U/L Normal 38-126 [facility] Comment on above: Performed By: #### E TOH4, QWAL2, CMP3, HEMDF #### [facility] [address] [place] [address] Anion gap [Moles/Vol] 14 mmol/L High 3-13 [facility] Comment on above: Performed By: #### E TOH4, QWAL2, CMP3, HEMDF #### [facility] [address] [place] [address] AST [Catalytic activity/Vol] 46 U/L Normal 15-46 [facility] Comment on above: Performed By: #### E TOH4, QWAL2, CMP3, HEMDF #### [facility] [address] [place] [address] Bilirubin [Mass/Vol] 0.4 mg/dL Normal 0.2-1.3 [facility] Comment on above: Performed By: #### E TOH4, QWAL2, CMP3, HEMDF #### [facility] [address] [place] [address] Calcium [Mass/Vol] 9.2 mg/dL Normal 8.4-10.4 [facility] Comment on above: Performed By: #### E TOH4, QWAL2, CMP3, HEMDF #### [facility] [address] [place] [address] CO2 [Moles/Vol] 16 mmol/L Low 22-30 [facility] Comment on above: Performed By: #### E TOH4, QWAL2, CMP3, HEMDF #### [facility] [address] [place] [address] Creatinine [Mass/Vol] 0.66 mg/dL Normal 0.52-1.25 [facility] Comment on above: Performed By: #### E TOH4, QBHARTI2, CMP3, HEMDF #### [facility] [address] [place] [address] eGFR OTHER > 90.0 Normal >60 [facility] Comment on above: Result Comment: KDIG O guidelines provide the following GFR categories: Stage GFR(ml/min/1.73 m2) Terms G1 >=90 Normal or high G2 60-89 Mildly decreased* G3a 45-59 Mildly to moderately decreased G3b 30-44 Moderately to severely decreased G4 15-29 Severely decreased G5 <15 Kidney failure *Relative to young adult level. In the absence of evidence of kidney damage, neither GFR category G1 nor G2 fulfill the criteria for CKD. The CKD-EPI equation is validated in individuals 18 years of age and older. Currently the best equation for estimating glomerular filtration rate (GFR) from serum creatinine in children is the Bedside Guerrero equation. It is less accurate in patients with extremes of muscle mass, restriction of dietary protein, ingestion of creatine, extra-renal metabolism of creatinine, or treatment with medications that affect renal tubular creatinine secretion. Performed By: #### E TOH4, QWAL2, CMP3, HEMDF #### [facility] [address] [place] [address] GFR/1.73 sq M.predicted among blacks MDRD (S/P/Bld) [Vol rate/Area] mL/min/{1.73_m2} Normal >60 [facility] Comment on above: Performed By: #### E TOH4, QWAL2, CMP3, HEMDF #### [facility] [address] [place] [address] Glucose [Mass/Vol] 112 mg/dL High 70-100 [facility] Comment on above: Performed By: #### E TOH4, QWAL2, CMP3, HEMDF #### [facility] [address] [place] [address] Protein [Mass/Vol] 7.6 g/dL Normal 6.3-8.2 [facility] Comment on above: Performed By: #### E TOH4, QWAL2, CMP3, HEMDF #### [facility] [address] [place] [address] Urea nitrogen [Mass/Vol] 16 mg/dL Normal 9-20 [facility] Comment on above: Performed By: #### E TOH4, QWAL2, CMP3, HEMDF #### [facility] [address] [place] [address] Potassium [Moles/Vol] 3.9 mmol/L Normal 3.5-5.1 [facility] Comment on above: Performed By: #### E TOH4, QWAL2, CMP3, HEMDF #### [facility] [address] [place] [address] Albumin [Mass/Vol] 4.6 g/dL Normal 3.5-5.0 [facility] Comment on above: Performed By: #### E TOH4, QWAL2, CMP3, HEMDF #### [facility] [address] [place] [address] Chloride [Moles/Vol] 113 mmol/L High 98-107 [facility] Comment on above: Performed By: #### E TOH4, QWAL2, CMP3, HEMDF #### [facility] [address] [place] [address] Sodium [Moles/Vol] 143 mmol/L Normal 135-145 [facility] Comment on above: Performed By: #### E TOH4, QWAL2, CMP3, HEMDF #### [facility] [address] [place] [address] Complete Urinalysison 2021 Appearance (U) Clear Normal Clear [facility] Comment on above: Result Comment: . Performed By: #### E TOH4, CVCCL, CMP3, HEMOG #### [facility] [address] [place] [address] Bilirubin,Urine Negative Normal Negative [facility] Comment on above: Result Comment: . Performed By: #### E TOH4, CVCCL, CMP3, HEMOG #### [facility] [address] [place] [address] Color (U) COLORLESS Normal Lt. Yellow [facility] Comment on above: Result Comment: . Performed By: #### E TOH4, CVCCL, CMP3, HEMOG #### [facility] [address] [place] [address] Glucose Ql (U) Normal Normal Normal (<70) [facility] Comment on above: Result Comment: . Performed By: #### E TOH4, CVCCL, CMP3, HEMOG #### [facility] [address] [place] [address] Ketone,Urine Negative Normal Negative [facility] Comment on above: Result Comment: . Performed By: #### E TOH4, CVCCL, CMP3, HEMOG #### [facility] [address] [place] [address] Leukocytes,Urine Negative Normal Negative [facility] Comment on above: Result Comment: . Performed By: #### E TOH4, CVCCL, CMP3, HEMOG #### [facility] [address] [place] [address] Nitrites,Urine Negative Normal Negative [facility] Comment on above: Result Comment: . Performed By: #### E TOH4, CVCCL, CMP3, HEMOG #### [facility] [address] [place] [address] Occult Blood,Urine Negative Normal Negative [facility] Comment on above: Result Comment: . Performed By: #### E TOH4, CVCCL, CMP3, HEMOG #### [facility] [address] [place] [address] pH,Urine 6.5 Normal 5.0-8.0 [facility] Comment on above: Result Comment: . Performed By: #### E TOH4, CVCCL, CMP3, HEMOG #### [facility] [address] [place] [address] Specific [place],Urine < 1.005 Abnormal 1.005 - 1.030 [facility] Comment on above: Result Comment: . Performed By: #### E TOH4, CVCCL, CMP3, HEMOG #### [facility] [address] [place] [address] Total Protein,Urine Negative Normal Negative [facility] Comment on above: Result Comment: . Performed By: #### E TOH4, CVCCL, CMP3, HEMOG #### [facility] [address] [place] [address] Urobilinogen,Urine Normal Normal Normal (0-1) [facility] Comment on above: Result Comment: . Performed By: #### E TOH4, CVCCL, CMP3, HEMOG #### [facility] [address] [place] [address] Comprehensive Metabolic Pane lOrdered By: Nabil Solis on 04-27-2022 Albumin [Mass/Vol] 4.6 g/dL 3.5 - 5 g/dL [facility] Work Phone: ALP (Bld) [Catalytic activity/Vol] 51 U/L 38 - 126 U/L [facility] Work Phone: ALT [Catalytic activity/Vol] 15 U/L 0 - 34 U/L [facility] Work Phone: Comment on above: The ALT test is perf ormed by an updated assay method. Please note that the reference intervals have been changed and are now sex specific. Anion gap [Moles/Vol] 14 mmol/L High 3 - 13 mmol/L [facility] Work Phone: AST [Catalytic activity/Vol] 46 U/L 15 - 46 U/L [facility] Work Phone: Bilirubin [Mass/Vol] 0.4 mg/dL 0.2 - 1 .3 mg/dL [facility] Work Phone: Calcium [Mass/Vol] 9.2 mg/dL 8.4 - 10. 4 mg/dL [facility] Work Phone: Chloride [Moles/Vol] 113 mmol/L High 98 - 10 7 mmol/L [facility] Work Phone: CO2 [Moles/Vol] 16 mmol/L Low 22 - 30 mmol/L [facility] Work Phone: Creatinine [Mass/Vol] 0.66 mg/dL 0.52 - 1.25 mg/dL [facility] Work Phone: eGFR mL/min 60 - P INF mL/min [facility] Work Phone: EGFR IF NonAfrican Grenadian mL/min 60 - PINF mL/min [facility] Work Phone: Comment on above: KDIGO guidelines pro vide the following GFR categories: Stage GFR(ml/min/1.73 m2) Terms G1 >=90 Normal or high G2 60-89 Mildly decreased* G3a 45-59 Mildly to moderately decreased G3b 30-44 Moderately to severely decreased G4 15-29 Severely decreased G5 <15 Kidney failure *Relative to young adult level. In the absence of evidence of kidney damage, neither GFR category G1 nor G2 fulfill the criteria for CKD. The CKD-EPI equation is validated in individuals 18 years of age and older. Currently the best equation for estimating glomerular filtration rate (GFR) from serum creatinine in children is the Bedside Guerrero equation. It is less accurate in patients with extremes of muscle mass, restriction of dietary protein, ingestion of creatine, extra-renal metabolism of creatinine, or treatment with medications that affect renal tubular creatinine secretion. Free PSA/Total PSA [Mass fraction] 7.6 g/dL 6.3 - 8.2 g/dL [facility] Work Phone: Glucose [Mass/Vol] 112 mg/dL High 70 - 100 mg/dL [facility] Work Phone: Interpretation and review of laboratory results Abnormal [facility] Work Phone: Potassium [Moles/Vol] 3.9 mmol/L 3.5 - 5.1 mmol/L [facility] Work Phone: Sodium [Moles/Vol] 143 mmol/L 135 - 145 mmol/L [facility] Work Phone: Urea nitrogen (BldV) [Mass/Vol] 16 mg/dL 9 - 20 mg/dL [facility] Work Phone: [facility] Work Phone: Comprehensive Metabolic Pane berry 04-27-2022 Test Performed by [facility], [address] , [address] LAB Drugs of Abuseon 04-27-2022 Phencyclidine (PCP), Ur Negative Normal [facility] Comment on above: Result Comment: The expected value for all of the drugs listed above is Negative. The following drugs or drug groups have been screened for by Immunoassay at the following thresholds: Amphetamine class (1000 ng/mL), Barbiturates (200 ng/mL), Benzodiazepines (200 ng/mL), Cocaine (300 ng/mL), Methadone (300 ng/mL), Opiates (300 ng/mL), Oxycodone (100 ng/mL), and PCP (25 ng/mL). NOTE: These results are for medical treatment only. Analysis performed using non-forensic procedures. POSITIVE results are NOT confirmed by a more specific alternative method unless requested. If confirmation is needed, request confirmation under separate order. Performed By: #### E TOH4, CVCCL, CMP3, HEMOG #### [facility] [address] [place] [address] Methadone, Ur Negative Normal [facility] Comment on above: Performed By: #### E TOH4, CVCCL, CMP3, HEMOG #### [facility] [address] [place] [address] Opiates, Ur Negative Normal [facility] Comment on above: Performed By: #### E TOH4, CVCCL, CMP3, HEMOG #### [facility] [address] [place] [address] Cocaine, Ur Negative Normal [facility] Comment on above: Performed By: #### E TOH4, CVCCL, CMP3, HEMOG #### [facility] [address] [place] [address] Amphetamines, Ur Negative Normal [facility] Comment on above: Performed By: #### E TOH4, CVCCL, CMP3, HEMOG #### [facility] [address] [place] [address] Barbiturates, Ur Negative Normal [facility] Comment on above: Performed By: #### E TOH4, CVCCL, CMP3, HEMOG #### [facility] [address] [place] [address] Benzodiazepines, Ur Negative Normal [facility] Comment on above: Performed By: #### E TOH4, CVCCL, CMP3, HEMOG #### [facility] [address] [place] [address] Oxycodone/Oxymorphine, Ur Negative Normal [facility] Comment on above: Performed By: #### E TOH4, CVCCL, CMP3, HEMOG #### [facility] [address] [place] [address] Ethanolon 04-27-2022 Ethanol Lvl 0.47 g/dL Critically high 0 - 0.01 g/dL [facility] Work Phone: Comment on above: NOTE: This result is for medical treatment only. Analysis performed using non-forensic procedures. Interpretation and review of laboratory results Abnormal [facility] Work Phone: Test Performed by [facility], [address] , [place], [place] [id number] [place] [address] LAB [facility] Work Phone: Ethanol Serum/Plasmaon 04-27 Ethanol-Serum/Plasma 0.470 g/dL Critically high 0.000-0.01 0 [facility] Comment on above: Result Comment: NOTE : This result is for medical treatment only. Analysis performed using non-forensic procedures. Performed By: #### E TOH4, CVCCL, CMP3, HEMOG #### [facility] [address] [place] [address] HCG Qualitative, Serumon hCG Qual Negative [facility] Work Phone: Comment on above: Reference Range: NEG ATIVE Effective 11/03/2019, the reference interval for the qualitative test has been updated. This test detects hCG at concentrations of 10 mIU/L or greater in serum. Test Performed by [facility], [address] , [place], [place] [id number] [place] [address] LAB [facility] Work Phone: Hemogram w/ Autodiffon 04-27 Abs Baso Cnt 0.1 10*3/uL Normal 0.0-0.2 [facility] Comment on above: Performed By: #### E TOH4, QWAL2, CMP3, HEMDF #### [facility] [address] [place] [address] Abs Neutrophile Cnt 4.6 10*3/uL Normal 1.8-7.0 [facility] Comment on above: Performed By: #### E TOH4, QWAL2, CMP3, HEMDF #### [facility] [address] [place] [address] Basophils/100 WBC (Bld) 1.1 % Normal 0.0-2.0 [facility] Comment on above: Performed By: #### E TOH4, QWAL2, CMP3, HEMDF #### [facility] [address] [place] [address] Eosinophils (Bld) [#/Vol] 0.1 10*3/uL Normal 0.0-0.5 [facility] Comment on above: Performed By: #### E TOH4, QWAL2, CMP3, HEMDF #### [facility] [address] [place] [address] Eosinophils/100 WBC (Bld) 0.7 % Low 1.0-6.0 [facility] Comment on above: Performed By: #### E TOH4, QWAL2, CMP3, HEMDF #### [facility] [address] [place] [address] Erythrocyte distribution width (RBC) [Ratio] 14.1 % Normal 11.5-14.5 [facility] Comment on above: Performed By: #### E TOH4, QWAL2, CMP3, HEMDF #### [facility] [address] [place] [address] Granulocytes/100 WBC (Bld) 55.4 % Normal 40.0-80.0 [facility] Comment on above: Performed By: #### E TOH4, QWAL2, CMP3, HEMDF #### [facility] [address] [place] [address] Hematocrit (Bld) [Volume fraction] 38.2 % Normal 35.0-47.0 [facility] Comment on above: Performed By: #### E TOH4, QWAL2, CMP3, HEMDF #### [facility] [address] [place] [address] Hemoglobin (Bld) [Mass/Vol] 13.1 g/dL Normal 11.7-16.0 [facility] Comment on above: Performed By: #### E TOH4, QWAL2, CMP3, HEMDF #### [facility] [address] [place] [address] Lymphocytes (Bld) [#/Vol] 3.0 10*3/uL Normal 1.0-4.3 [facility] Comment on above: Performed By: #### E TOH4, QWAL2, CMP3, HEMDF #### [facility] [address] [place] [address] Lymphocytes/100 WBC (Bld) 36.8 % Normal 20.0-40.0 [facility] Comment on above: Performed By: #### E TOH4, QWAL2, CMP3, HEMDF #### [facility] [address] [place] [address] MCH (RBC) [Entitic mass] 30.8 pg Normal 26.0-34.0 [facility] Comment on above: Performed By: #### E TOH4, QWAL2, CMP3, HEMDF #### [facility] [address] [place] [address] MCHC 34.3 % Normal 32.0-36.0 [facility] Comment on above: Performed By: #### E TOH4, QWAL2, CMP3, HEMDF #### [facility] [address] [place] [address] MCV (RBC) [Entitic vol] 89.7 fL Normal 79.0-98.0 [facility] Comment on above: Performed By: #### E TOH4, QWAL2, CMP3, HEMDF #### [facility] [address] [place] [address] Monocytes (Bld) [#/Vol] 0.5 10*3/uL Normal 0.0-0.8 [facility] Comment on above: Performed By: #### E TOH4, QWAL2, CMP3, HEMDF #### [facility] [address] [place] [address] Monocytes/100 WBC (Bld) 5.6 % Normal 2.0-10.0 [facility] Comment on above: Performed By: #### E TOH4, QWAL2, CMP3, HEMDF #### [facility] [address] [place] [address] Platelet mean volume (Bld) [Entitic vol] 8.3 fL Normal 7.4-12.4 [facility] Comment on above: Result Comment: MPV is a calculated measurement using platelet volume ratio. Performed By: #### E TOH4, QWAL2, CMP3, HEMDF #### [facility] [address] [place] [address] Platelets (Bld) [#/Vol] 324 10*3/uL Normal 140-440 [facility] Comment on above: Performed By: #### E TOH4, QWAL2, CMP3, HEMDF #### [facility] [address] [place] [address] RBC (Bld) [#/Vol] 4.26 10*6/uL Normal 3.80-5.20 [facility] Comment on above: Performed By: #### E TOH4, QWAL2, CMP3, HEMDF #### [facility] [address] [place] [address] WBC (Bld) [#/Vol] 8.3 10*3/uL Normal 3.6-10.7 [facility] Comment on above: Performed By: #### E TOH4, QWAL2, CMP3, HEMDF #### [facility] [address] [place] [address] Urinalysison 04-27-2022 Appearance (U) Clear Clear NA [employer] Work Phone: [phone] Comment on above: . Bilirubin Urine Negative Negative mg/dL [employer] Work Phone: [phone] Comment on above: . Color (U) COLORLESS Lt. Yellow NA [employer] Work Phone: [phone] Comment on above: . Glucose, Ur Normal Normal (<70) mg/dL [employer] Work Phone: [phone] Comment on above: . Interpretation and review of laboratory results Abnormal [employer] Work Phone: [phone] Ketones Ql (U) Negative Negative mg/dL [employer] Work Phone: [phone] Comment on above: . LEUKOCYTES, UA Negative Negative Jin/uL [employer] Work Phone: [phone] Comment on above: . Nitrite, Urine Negative Negative NA [employer] Work Phone: [phone] Comment on above: . Occult Blood,Urine Negative Negative mg/dL [employer] Work Phone: [phone] Comment on above: . pH (U) 6.5 [pH] [facility] Work Phone: [phone] Comment on above: . Specific [place], Urine Abnormal [employer] Work Phone: [phone] Comment on above: . Total Protein, Urine Negative Negativ e mg/dL [employer] Work Phone: Comment on above: . Urobilinogen, Urine Normal Normal ( 0-1) mg/dL [employer] Work Phone: Comment on above: . Test Performed by [facility], [address] , [place], [place] [id number] [place] [address] LAB [facility] Work Phone: Urine Drug Screenon 04-27-20 22 Amphetamines, urine Negative [facility] Work Phone: Barbiturates, Urine Negative [facility] Work Phone: Benzodiazepine Ur Qual Negative [employer] Work Phone: Cocaine Metabolites, Ur Negative [facility] Work Phone: Methadone, Urine Negative [facility] Work Phone: Opiates, Urine Negative [facility] Work Phone: Oxycodone Screen, Ur Negative [facility] Work Phone: PCP, Urine Negative [facility] Work Phone: Comment on above: The expected value f or all of the drugs listed above is Negative. The following drugs or drug groups have been screened for by Immunoassay at the following thresholds: Amphetamine class (1000 ng/mL), Barbiturates (200 ng/mL), Benzodiazepines (200 ng/mL), Cocaine (300 ng/mL), Methadone (300 ng/mL), Opiates (300 ng/mL), Oxycodone (100 ng/mL), and PCP (25 ng/mL). NOTE: These results are for medical treatment only. Analysis performed using non-forensic procedures. POSITIVE results are NOT confirmed by a more specific alternative method unless requested. If confirmation is needed, request confirmation under separate order. Test Performed by [facility] Net Transmit & Receive [facility], [address] , [place], [place] [id number] [place] [address] LAB [facility] Work Phone: hCG Qual Pregon 04-27-2022 hCG Qual Preg Negative Normal [facility] Comment on above: Result Comment: Refe rence Range: NEGATIVE Effective 11/03/2019, the reference interval for the qualitative test has been updated. This test detects hCG at concentrations of 10 mIU/L or greater in serum. Performed By: #### E TOH4, CVCCL, CMP3, HEMOG #### [facility] [address] [place] [address] CR Knee Complete 4+ Views Ri [facility] 08-01-2021 CR Knee Complete 4+ Views Right Patient Name: GELY HICKS Diagnostic Radiology ACCESSION EXAM DATE/TIME PROCEDURE ORDERING PROVIDER [id number] 08/01/2021 16:31 EST CR Knee Complete 4+ VIOLETTA ROGER Views Right CPT code 81958 Reason For Exam (CR Knee Complete 4+ Views Right) Pain in right knee Report RIGHT KNEE History: Knee pain Findings: Four views of the right knee show no acute fracture, dislocation, bone erosion or periosteal reaction. The knee joint space is maintained. IMPRESSION: Negative examination. Report Dictated on Final Dictating Physician: MD ABRAHAM AHMAD Signed Date and Time: 08/01/2021 4:58 pm Signed by: MD ABRAHAM AHMAD Transcribed Date and Time: 08/01/2021 4:59 Normal [facility] COVID-19, RapidOrdered By: Carlos Enrique Berger on 05-09-2021 SARS-CoV-2 (COVID-19) RNA MARCY+probe Ql (Unsp spec) see below [facility] Work Phone: Comment on above: Not Detected Expected Result: Not Detected _ Isothermal nucleic acid amplification performed on the [employer] System by the [facility] Laboratory Negative results do not preclude SARS-CoV-2 infection and should not be used as the sole basis for treatment or other patient management decisions. This assay was developed by [employer] and distributed under an Emergency Use Authorization (EUA) granted by the [facility] for the qualitative detection of SARS-CoV-2 nucleic acid. Provider and patient fact sheets can be found at https://www.fda.gov/media/944580/download and https://www.fda.gov/media/453585/download. [facility] Work Phone: Comp Metabolic Panelon 05-09 ALP [Catalytic activity/Vol] 52 U/L Normal 38-126 [facility] Comment on above: Performed By: #### E TOH4, CVCCL, CMP3, HEMOG #### [facility] [address] [place] [address] ALT [Catalytic activity/Vol] 16 U/L Normal 0-34 [facility] Comment on above: Result Comment: The ALT test is performed by an updated assay method. Please note that the reference intervals have been changed and are now sex specific. Performed By: #### E TOH4, CVCCL, CMP3, HEMOG #### [facility] [address] [place] [address] Anion gap [Moles/Vol] 13 mmol/L Normal 3-13 [facility] Comment on above: Performed By: #### E TOH4, CVCCL, CMP3, HEMOG #### [facility] [address] [place] [address] AST [Catalytic activity/Vol] 42 U/L Normal 15-46 [facility] Comment on above: Performed By: #### E TOH4, CVCCL, CMP3, HEMOG #### [facility] [address] [place] [address] Bilirubin [Mass/Vol] 0.3 mg/dL Normal 0.2-1.3 [facility] Comment on above: Performed By: #### E TOH4, CVCCL, CMP3, HEMOG #### [facility] [address] [place] [address] Calcium [Mass/Vol] 9.6 mg/dL Normal 8.4-10.4 [facility] Comment on above: Performed By: #### E TOH4, CVCCL, CMP3, HEMOG #### [facility] [address] [place] [address] CO2 [Moles/Vol] 23 mmol/L Normal 22-30 [facility] Comment on above: Performed By: #### E TOH4, CVCCL, CMP3, HEMOG #### [facility] [address] [place] [address] Creatinine [Mass/Vol] 0.58 mg/dL Normal 0.52-1.25 [facility] Comment on above: Performed By: #### E TOH4, CVCCL, CMP3, HEMOG #### [facility] [address] [place] [address] eGFR OTHER > 90.0 Normal >60 [facility] Comment on above: Result Comment: KDIG O guidelines provide the following GFR categories: Stage GFR(ml/min/1.73 m2) Terms G1 >=90 Normal or high G2 60-89 Mildly decreased* G3a 45-59 Mildly to moderately decreased G3b 30-44 Moderately to severely decreased G4 15-29 Severely decreased G5 <15 Kidney failure *Relative to young adult level. In the absence of evidence of kidney damage, neither GFR category G1 nor G2 fulfill the criteria for CKD. The CKD-EPI equation is validated in individuals 18 years of age and older. Currently the best equation for estimating glomerular filtration rate (GFR) from serum creatinine in children is the Bedside Guerrero equation. It is less accurate in patients with extremes of muscle mass, restriction of dietary protein, ingestion of creatine, extra-renal metabolism of creatinine, or treatment with medications that affect renal tubular creatinine secretion. Performed By: #### E TOH4, CVCCL, CMP3, HEMOG #### [facility] [address] [place] [address] GFR/1.73 sq M.predicted among blacks MDRD (S/P/Bld) [Vol rate/Area] mL/min/{1.73_m2} Normal >60 [facility] Comment on above: Performed By: #### E TOH4, CVCCL, CMP3, HEMOG #### [facility] [address] [place] [address] Glucose [Mass/Vol] 77 mg/dL Normal 70-100 [facility] Comment on above: Performed By: #### E TOH4, CVCCL, CMP3, HEMOG #### [facility] [address] [place] [address] Protein [Mass/Vol] 8.3 g/dL High 6.3-8.2 [facility] Comment on above: Performed By: #### E TOH4, CVCCL, CMP3, HEMOG #### [facility] [address] [place] [address] Urea nitrogen [Mass/Vol] 5 mg/dL Low 9-20 [facility] Comment on above: Performed By: #### E TOH4, CVCCL, CMP3, HEMOG #### [facility] [address] [place] [address] Potassium [Moles/Vol] 3.7 mmol/L Normal 3.5-5.1 [facility] Comment on above: Performed By: #### E TOH4, CVCCL, CMP3, HEMOG #### [facility] [address] [place] [address] Albumin [Mass/Vol] 4.8 g/dL Normal 3.5-5.0 [facility] Comment on above: Performed By: #### E TOH4, CVCCL, CMP3, HEMOG #### [facility] [address] [place] [address] Chloride [Moles/Vol] 107 mmol/L Normal 98-107 [facility] Comment on above: Performed By: #### E TOH4, CVCCL, CMP3, HEMOG #### [facility] [address] [place] [address] Sodium [Moles/Vol] 144 mmol/L Normal 135-145 [facility] Comment on above: Performed By: #### E TOH4, CVCCL, CMP3, HEMOG #### [facility] [address] [place] [address] Complete Urinalysison 2020 Bacteria LM.HPF (Urine sed) [#/Area] Negative Normal Negative [facility] Comment on above: Result Comment: . Performed By: #### D RGA4, HCGUR, CUA2 #### [facility] [address] [place] [address] RBC, Urine 3 - 5 Abnormal 0-2 [facility] Comment on above: Result Comment: . Performed By: #### D RGA4, HCGUR, CUA2 #### [facility] [address] [place] [address] Squamous Epithelial 3 - 5 Normal 3-5 [facility] Comment on above: Result Comment: . Performed By: #### D RGA4, HCGUR, CUA2 #### [facility] [address] [place] [address] VOLUME, URINE 12 ml Normal [facility] Comment on above: Result Comment: . Performed By: #### D RGA4, HCGUR, CUA2 #### [facility] [address] [place] [address] WBC, Urine 3 - 5 Normal 0-5 [facility] Comment on above: Result Comment: . Performed By: #### D RGA4, HCGUR, CUA2 #### [facility] [address] [place] [address] Appearance (U) Clear Normal Clear [facility] Comment on above: Result Comment: . Performed By: #### D RGA4, HCGUR, CUA2 #### [facility] [address] [place] [address] Bilirubin,Urine Negative Normal Negative [facility] Comment on above: Result Comment: . Performed By: #### D RGA4, HCGUR, CUA2 #### [facility] [address] [place] [address] Color (U) COLORLESS Normal Lt. Yellow [facility] Comment on above: Result Comment: . Performed By: #### D RGA4, HCGUR, CUA2 #### [facility] [address] [place] [address] Glucose Ql (U) Normal Normal Normal (<70) [facility] Comment on above: Result Comment: . Performed By: #### D RGA4, HCGUR, CUA2 #### [facility] [address] [place] [address] Ketone,Urine Negative Normal Negative [facility] Comment on above: Result Comment: . Performed By: #### D RGA4, HCGUR, CUA2 #### [facility] [address] [place] [address] Leukocytes,Urine Negative Normal Negative [facility] Comment on above: Result Comment: . Performed By: #### D RGA4, HCGUR, CUA2 #### [facility] [address] [place] [address] Nitrites,Urine Negative Normal Negative [facility] Comment on above: Result Comment: . Performed By: #### D RGA4, HCGUR, CUA2 #### [facility] [address] [place] [address] Occult Blood,Urine 0.03 mg/dL Abnormal Negative [facility] Comment on above: Result Comment: . Performed By: #### D RGA4, HCGUR, CUA2 #### [facility] [address] [place] [address] pH,Urine 7.0 Normal 5.0-8.0 [facility] Comment on above: Result Comment: . Performed By: #### D RGA4, HCGUR, CUA2 #### [facility] [address] [place] [address] Specific [place],Urine < 1.005 Abnormal 1.005 - 1.030 [facility] Comment on above: Result Comment: . Performed By: #### D RGA4, HCGUR, CUA2 #### [facility] [address] [place] [address] Total Protein,Urine Negative Normal Negative [facility] Comment on above: Result Comment: . Performed By: #### D RGA4, HCGUR, CUA2 #### [facility] [address] [place] [address] Urobilinogen,Urine Normal Normal Normal (0-1) [facility] Comment on above: Result Comment: . Performed By: #### D RGA4, HCGUR, CUA2 #### [facility] [address] [place] [address] Drugs of Abuseon 05-09-2021 Benzodiazepines, Ur Negative Normal [facility] Comment on above: Performed By: #### D RGA4, HCGUR, CUA2 #### [facility] [address] [place] [address] Phencyclidine (PCP), Ur Negative Normal [facility] Comment on above: Result Comment: The expected value for all of the drugs listed above is Negative. The following drugs or drug groups have been screened for by Immunoassay at the following thresholds: Amphetamine class (1000 ng/mL), Barbiturates (200 ng/mL), Benzodiazepines (200 ng/mL), Cocaine (300 ng/mL), Methadone (300 ng/mL), Opiates (300 ng/mL), Oxycodone (100 ng/mL), and PCP (25 ng/mL). NOTE: These results are for medical treatment only. Analysis performed using non-forensic procedures. POSITIVE results are NOT confirmed by a more specific alternative method unless requested. If confirmation is needed, request confirmation under separate order. Performed By: #### D RGA4, HCGUR, CUA2 #### [facility] [address] [place] [address] Opiates, Ur Negative Normal [facility] Comment on above: Performed By: #### D RGA4, HCGUR, CUA2 #### [facility] [address] [place] [address] Cocaine, Ur Negative Normal [facility] Comment on above: Performed By: #### D RGA4, HCGUR, CUA2 #### [facility] [address] [place] [address] Methadone, Ur Negative Normal [facility] Comment on above: Performed By: #### D RGA4, HCGUR, CUA2 #### [facility] [address] [place] [address] Amphetamines, Ur Negative [facility] Comment on above: Performed By: #### D RGA4, HCGUR, CUA2 #### [facility] [address] [place] [address] Barbiturates, Ur Negative Normal [facility] Comment on above: Performed By: #### D RGA4, HCGUR, CUA2 #### [facility] [address] [place] [address] Oxycodone/Oxymorphine, Ur Negative Normal [facility] Comment on above: Performed By: #### D RGA4, HCGUR, CUA2 #### [facility] [address] [place] [address] Ethanol Serum/Plasmaon 05-09 Ethanol-Serum/Plasma 0.207 g/dL High 0.000-0.010 [facility] Comment on above: Result Comment: NOTE : This result is for medical treatment only. Analysis performed using non-forensic procedures. Performed By: #### E TOH4, CVCCL, CMP3, HEMOG #### [facility] [address] [place] [address] HCG,Urine Qualon 05-09-2021 Beta HCG ( test) Ql (U) Negative Normal Negative [facility] Comment on above: Result Comment: Plea note: Very dilute urine specimens, as indicated by a low specific gravity, may not contain new accounts banking representative levels of hCG. If is still suspected, a first morning urine specimen should be collected 48 hours later and tested. is the most common reason for HCG in urine, although choriocarcinoma, hydatidiform mole, and certain nontropho- blastic malignancies also result in detectable urinary HCG levels. Sensitivity = 20mIU/mL. Performed By: #### D RGA4, HCGUR, CUA2 #### [facility] [address] [facility] [place] [address] [facility] Urine Qual PregOrdered B y: Tiburcio Celine on 05-09-2021 Beta HCG ( test) Ql (U) Negative Negative NA [facility] Work Phone: Comment on above: Please note: Very di lute urine specimens, as indicated by a low specific gravity, may not contain new accounts banking representative levels of hCG. If is still suspected, a first morning urine specimen should be collected 48 hours later and tested. is the most common reason for HCG in urine, although choriocarcinoma, hydatidiform mole, and certain nontropho- blastic malignancies also result in detectable urinary HCG levels. Sensitivity = 20mIU/mL. Hemogramon 05-09-2021 Erythrocyte distribution width (RBC) [Ratio] 15.6 % High 11.5-14.5 [facility] Comment on above: Performed By: #### E TOH4, CVCCL, CMP3, HEMOG #### [facility] [address] [place] [address] Hematocrit (Bld) [Volume fraction] 38.7 % Normal 35.0-47.0 [facility] Comment on above: Performed By: #### E TOH4, CVCCL, CMP3, HEMOG #### [facility] [address] [place] [address] Hemoglobin (Bld) [Mass/Vol] 13.2 g/dL Normal 11.7-16.0 [facility] Comment on above: Performed By: #### E TOH4, CVCCL, CMP3, HEMOG #### [facility] [address] [place] [address] MCH (RBC) [Entitic mass] 32.1 pg Normal 26.0-34.0 [facility] Comment on above: Performed By: #### E TOH4, CVCCL, CMP3, HEMOG #### [facility] [address] [place] [address] MCHC 34.1 % Normal 32.0-36.0 [facility] Comment on above: Performed By: #### E TOH4, CVCCL, CMP3, HEMOG #### [facility] [address] [place] [address] MCV (RBC) [Entitic vol] 94.0 fL Normal 79.0-98.0 [facility] Comment on above: Performed By: #### E TOH4, CVCCL, CMP3, HEMOG #### [facility] [address] [place] [address] Platelet mean volume (Bld) [Entitic vol] 6.1 fL Low 7.4-10.4 [facility] Comment on above: Performed By: #### E TOH4, CVCCL, CMP3, HEMOG #### [facility] [address] [place] [address] Platelets (Bld) [#/Vol] 435 10*3/uL Normal 140-440 [facility] Comment on above: Performed By: #### E TOH4, CVCCL, CMP3, HEMOG #### [facility] [address] [place] [address] RBC (Bld) [#/Vol] 4.11 10*6/uL Normal 3.80-5.20 [facility] Comment on above: Performed By: #### E TOH4, CVCCL, CMP3, HEMOG #### [facility] [address] [place] [address] WBC (Bld) [#/Vol] 6.6 10*3/uL Normal 3.6-10.7 [facility] Comment on above: Performed By: #### E TOH4, CVCCL, CMP3, HEMOG #### [facility] [address] [place] [address] No Panel InformationOrdered By: Tiburcio Berger on 05-09-2021 Test Performed by [facility], [address] , [place], [place] [address] [facility] Work Phone: [facility] Work Phone: SARS-CoV-2 (LAB DEPT)on 04-23 SARS-CoV-2 (COVID-19) RNA MARCY+probe Ql (Unsp spec) see below Normal [facility] Comment on above: Result Comment: Not Detected Expected Result: Not Detected _ Isothermal nucleic acid amplification performed on the [employer] System by the [facility] Negative results do not preclude SARS-CoV-2 infection and should not be used as the sole basis for treatment or other patient management decisions. This assay was developed by [employer] and distributed under an Emergency Use Authorization (EUA) granted by the FDA for the qualitative detection of SARS-CoV-2 nucleic acid. Provider and patient fact sheets can be found at https://www.fda.gov/media/105938/download and https://www.fda.gov/media/551290/download. Performed By: #### E TOH4, CVCCL, CMP3, HEMOG #### [facility] [address] [place] [address] Urine Drug ScreenOrdered By: Tiburcio Berger on 05-09-2021 Amphetamines, urine Negative [facility] Work Phone: Barbiturates, Ur Negative [facility] Work Phone: [phone] Benzodiazepine Ur Qual Negative [facility] [employer] Work Phone: [phone] Cocaine Metabolites, Ur Negative [facility] Work Phone: [phone] Methadone, Urine Negative [facility] Work Phone: [phone] Opiates, Urine Negative [facility] Work Phone: Oxycodone Screen, Ur Negative [facility] Work Phone: PCP, Urine Negative [facility] Work Phone: Comment on above: The expected value f or all of the drugs listed above is Negative. The following drugs or drug groups have been screened for by Immunoassay at the following thresholds: Amphetamine class (1000 ng/mL), Barbiturates (200 ng/mL), Benzodiazepines (200 ng/mL), Cocaine (300 ng/mL), Methadone (300 ng/mL), Opiates (300 ng/mL), Oxycodone (100 ng/mL), and PCP (25 ng/mL). NOTE: These results are for medical treatment only. Analysis performed using non-forensic procedures. POSITIVE results are NOT confirmed by a more specific alternative method unless requested. If confirmation is needed, request confirmation under separate order. Comprehensive Metabolic Pane lOrdered By: Tiburcio Berger on 05-08-2021 Albumin [Mass/Vol] 4.8 g/dL 3.5 - 5.0 g/dL [facility] Work Phone: ALP (Bld) [Catalytic activity/Vol] 52 U/L 38 - 126 U/L [facility] Work Phone: ALT [Catalytic activity/Vol] 16 U/L 0 - 34 U/L [facility] Work Phone: Comment on above: The ALT test is perf ormed by an updated assay method. Please note that the reference intervals have been changed and are now sex specific. Anion gap [Moles/Vol] 13 mmol/L 3 - 13 mmol/L [facility] Work Phone: AST [Catalytic activity/Vol] 42 U/L 15 - 46 U/L [facility] Work Phone: Bilirubin [Mass/Vol] 0.3 mg/dL 0.2 - 1 .3 mg/dL [facility] Work Phone: Calcium [Mass/Vol] 9.6 mg/dL 8.4 - 10. 4 mg/dL [facility] Work Phone: Chloride [Moles/Vol] 107 mmol/L 98 - 10 7 mmol/L [facility] Work Phone: CO2 [Moles/Vol] 23 mmol/L 22 - 30 mmol/L [facility] Work Phone: Creatinine [Mass/Vol] 0.58 mg/dL 0.52 - 1.25 mg/dL [facility] Work Phone: EGFR IF NonAfrican Gren[place] >90.0 >60 mL/min [facility] Work Phone: Comment on above: KDIGO guidelines pro vide the following GFR categories: Stage GFR(ml/min/1.73 m2) Terms G1 >=90 Normal or high G2 60-89 Mildly decreased* G3a 45-59 Mildly to moderately decreased G3b 30-44 Moderately to severely decreased G4 15-29 Severely decreased G5 <15 Kidney failure *Relative to young adult level. In the absence of evidence of kidney damage, neither GFR category G1 nor G2 fulfill the criteria for CKD. The CKD-EPI equation is validated in individuals 18 years of age and older. Currently the best equation for estimating glomerular filtration rate (GFR) from serum creatinine in children is the Bedside Guerrero equation. It is less accurate in patients with extremes of muscle mass, restriction of dietary protein, ingestion of creatine, extra-renal metabolism of creatinine, or treatment with medications that affect renal tubular creatinine secretion. Free PSA/Total PSA [Mass fraction] 8.3 g/dL High 6.3 - 8.2 g/dL [facility] Work Phone: GFR/1.73 sq M.predicted among blacks MDRD (S/P/Bld) [Vol rate/Area] mL/min/{1.73_m2} >60 mL/min [facility] Work Phone: Glucose [Mass/Vol] 77 mg/dL 70 - 100 mg/dL [facility] Work Phone: Potassium [Moles/Vol] 3.7 mmol/L 3.5 - 5.1 mmol/L [facility] Work Phone: Sodium [Moles/Vol] 144 mmol/L 135 - 145 mmol/L [facility] Work Phone: Urea nitrogen (BldV) [Mass/Vol] 5 mg/dL Low 9 - 20 mg/dL [facility] Work Phone: EthanolOrdered By: Tiburcio lobo on 05-08-2021 Ethanol Lvl 0.207 g/dL High 0.000 - 0.010 g/dL [employer] Work Phone: Comment on above: NOTE: This result is for medical treatment only. Analysis performed using non-forensic procedures. Hemogram (CBC)Ordered By: Edmar Berger on 05-08-2021 Hematocrit (Bld) [Volume fraction] 38.7 % 35.0 - 47.0 % [employer] Work Phone: Hemoglobin.gastrointes tinal spec 1 Ql (Stl) 13.2 g/dL 11.7 - 16.0 g/dL [employer] Work Phone: Interpretation and review of laboratory results Abnormal [employer] Work Phone: MCH (RBC) [Entitic mass] 32.1 pg 26.0 - 34.0 pg [employer] Work Phone: MCHC (RBC) [Mass/Vol] 34.1 % 32.0 - 36.0 % [employer] Work Phone: MCV (RBC) [Entitic vol] 94.0 fL 79.0 - 98.0 fL [employer] Work Phone: Platelet distribution width (Bld) [Ratio] 15.6 % High 11.5 - 14.5 % [employer] Work Phone: Platelet mean volume (Bld) [Entitic vol] 6.1 fL Low 7.4 - 10.4 fL [employer] Work Phone: Platelets (Bld) [#/Vol] 435 10*3/uL 140 - 440 10*3/uL [employer] Work Phone: RBC (Bld) [#/Vol] 4.11 10*6/uL 3.80 - 5.2 0 10*6/uL [employer] Work Phone: WBC (Bld) [#/Vol] 6.6 10*3/uL 3.6 - 10.7 10*3/uL [employer] Work Phone: Test Performed by [facility], [address] , [place], [place] [address] [facility] Work Phone: [employer] Work Phone: No Panel InformationOrdered By: Tiburcio Berger on 05-08-2021 Interpretation and review of laboratory results Abnormal [employer] Work Phone: Test Performed by [facility], [address] , [place], [place] [address] [facility] Work Phone: [phone] [employer] Work Phone: UrinalysisOrdered By: Tiburcio Berger on 05-08-2021 Appearance (U) Clear Clear NA [employer] Work Phone: Comment on above: . Bacteria, UA Negative Negative /[HPF] [employer] Work Phone: [phone] Comment on above: . Bilirubin Urine Negative Negative mg/dL [employer] Work Phone: Comment on above: . Color (U) COLORLESS Lt. Yellow NA [employer] Work Phone: Comment on above: . Glucose, Ur Normal Normal (<70) mg/dL [employer] Work Phone: Comment on above: . Interpretation and review of laboratory results Abnormal [employer] Work Phone: Ketones Ql (U) Negative Negative mg/dL [employer] Work Phone: Comment on above: . LEUKOCYTES, UA Negative Negative Jin/uL [facility] Work Phone: Comment on above: . Nitrite, Urine Negative Negative NA [employer] Work Phone: Comment on above: . Occult Blood,Urine 0.03 mg/dL Abnormal Negative [employer] Work Phone: Comment on above: . pH (U) 7.0 [pH] [employer] Work Phone: Comment on above: . RBC, UA 3-5 Abnormal 0 - 2 /[HPF] [employer] Work Phone: Comment on above: . Specific [place], Urine <1.005 Abnormal [employer] Work Phone: Comment on above: . Squam Epithel, UA 3-5 3 - 5 /[HPF] [employer] Work Phone: Comment on above: . Total Protein, Urine Negative Negativ e mg/dL [employer] Work Phone: Comment on above: . Urobilinogen, Urine Normal Normal ( 0-1) mg/dL [employer] Work Phone: Comment on above: . Volume 12 ml [employer] Work Phone: Comment on above: . WBC, UA 3-5 0 - 5 /[HPF] [employer] Work Phone: Comment on above: . Test Performed by [facility], [address] [place] [address] , [place] [address] [employer] Work Phone: [employer] Work Phone: Comprehensive Metabolic Pane berry 09-05-2020 Albumin [Mass/Vol] 4.9 g/dL 3.5 - 5 g/dL [place] ALP [Catalytic activity/Vol] 47 U/L 38 - 126 U/L [place] ALT [Catalytic activity/Vol] 18 U/L 0 - 34 U/L [place] Comment on above: The ALT test is perf ormed by an updated assay method. Please note that the reference intervals have been changed and are now sex specific. Anion gap [Moles/Vol] 17 mmol/L [place], [place] AST [Catalytic activity/Vol] 69 U/L High 15 - 46 U/L [place] Bilirubin Ql (U) 0.4 mg/dL 0.2 - 1.3 mg/dL [place] Calcium [Mass/Vol] 9.3 mg/dL 8.4 - 10. 4 mg/dL [place] Chloride [Moles/Vol] 101 mmol/L 98 - 10 7 mmol/L [place] CO2 [Moles/Vol] 19 mmol/L Low 22 - 30 mmol/L [place] Creatinine [Mass/Vol] 0.55 mg/dL 0.52 - 1.25 mg/dL [place] EGFR IF NonAfrican Grenadian >90.0 >60 mL/min [place] Comment on above: KDIGO guidelines pro vide the following GFR categories: Stage GFR(ml/min/1.73 m2) Terms G1 >=90 Normal or high G2 60-89 Mildly decreased* G3a 45-59 Mildly to moderately decreased G3b 30-44 Moderately to severely decreased G4 15-29 Severely decreased G5 <15 Kidney failure *Relative to young adult level. In the absence of evidence of kidney damage, neither GFR category G1 nor G2 fulfill the criteria for CKD. The CKD-EPI equation is validated in individuals 18 years of age and older. Currently the best equation for estimating glomerular filtration rate (GFR) from serum creatinine in children is the Bedside Guerrero equation. It is less accurate in patients with extremes of muscle mass, restriction of dietary protein, ingestion of creatine, extra-renal metabolism of creatinine, or treatment with medications that affect renal tubular creatinine secretion. GFR/1.73 sq M predicted among blacks MDRD (S/P/Bld) [Vol rate/Area] mL/min/{1.73_m2} >60 mL/min [place] Glucose [Mass/Vol] 87 mg/dL 70 - 100 mg/dL [place] Interpretation and review of laboratory results Abnormal [place] Potassium [Moles/Vol] 3.5 mmol/L 3.5 - 5.1 mmol/L [place] Protein [Mass/Vol] 8.2 g/dL 6.3 - 8.2 g/dL [place] Sodium [Moles/Vol] 137 mmol/L 135 - 145 mmol/L [place] Urea nitrogen [Mass/Vol] 3 mg/dL Low 7 - 20 mg/dL [place] [facility], [facility] [address] , [place], [place] [id number] [place] [address] D-Dimer, Quantitativeon 08-23 D-Dimer, Quant 0.2 mg/L <0.19 - 0.50 [place], [place] Comment on above: [employer] D-Dimer va lues of <0.50 mg/L FEU can be used in combination with a pre-test probability model (e.g. Well's) to exclude pulmonary embolism (PE) disease, as well as an aid in the diagnosis of deep vein thrombosis (DVT). Test Performed by [facility], [address] , [address] Ethanolon 09-05-2020 Ethanol Lvl 0.374 g/dL Critically high 0 - 0.01 g/dL [place], [place] Comment on above: NOTE: This result is for medical treatment only. Analysis performed using non-forensic procedures. Interpretation and review of laboratory results Abnormal [place] Test Performed by [facility], [address] , [address] HCG Qualitative, Serumon hCG Qual Negative m[IU]/mL [place] Comment on above: Reference Range: NEG ATIVE Effective 11/03/2019, the reference interval for the qualitative test has been updated. This test detects hCG at concentrations of 10 mIU/L or greater in serum. Hemogram (CBC) w/Auto Diffon 09-05-2020 Absolute Baso # 0.1 10*3/uL 0 - 0.2 10*3/uL [place] Absolute Neut # 3.0 10*3/uL 1.8 - 7 10*3/uL [place] Basophils/100 WBC (Bld) 1.1 % 0 - 2 % [place] Eosinophils (Bld) [#/Vol] 0.0 10*3/uL 0 - 0.5 10*3/uL [place] Eosinophils/100 WBC (Bld) 0.1 % Low 1 - 6 % [place] Erythrocyte distribution width (RBC) [Ratio] 13.9 % 11.5 - 14.5 % [place] Granulocytes/100 WBC (Bld) 55.1 % 40 - 80 % [place] Hematocrit (Bld) [Volume fraction] 39.3 % 35 - 47 % [place] Hemoglobin (Bld) [Mass/Vol] 13.7 g/dL 11.7 - 16 g/dL [place] Interpretation and review of laboratory results Abnormal [place] Lymphocytes (Bld) [#/Vol] 2.0 10*3/uL 1 - 4.3 10*3/uL [place] Lymphocytes/100 WBC (Bld) 36.2 % 20 - 40 % [place] MCH (RBC) [Entitic mass] 32.4 pg 26 - 34 pg [place] MCHC (RBC) [Mass/Vol] 34.7 % 32 - 36 % [address] [place], [place] MCV (RBC) [Entitic vol] 93.4 fL 79 - 98 fL [place] Monocytes (Bld) [#/Vol] 0.4 10*3/uL 0 - 0.8 10*3/uL [place] Monocytes/100 WBC (Bld) 7.5 % 2 - 10 % [place] Platelet mean volume (Bld) [Entitic vol] 6.3 fL Low 7.4 - 10.4 fL [place], [place] Platelets (Bld) [#/Vol] 452 10*3/uL High 140 - 440 10*3/uL [place] RBC (Bld) [#/Vol] 4.21 10*6/uL 3.8 - 5.2 10*6/uL [place] WBC (Bld) [#/Vol] 5.4 10*3/uL 3.6 - 10.7 10*3/uL [place] Test Performed by [facility], [address] , [address] Otheron 09-05-2020 Test Performed by [facility], [address] , [address] Troponin x1on 09-05-2020 Troponin I.cardiac [Mass/Vol] ng/mL 0 - 0.034 ng/mL [place] Comment on above: . Cyclic Citrul Peptide Antibo dy, IgGon 04-08-2020 Cyclic Citrullin Peptide Ab <0.5 0 - 5 U/mL [place] Comment on above: 0.0 - 4.9 NEGATIVE >= 5.0 POSITIVE Test Performed by [address] [address] [place] Comprehensive Metabolic Pane berry 11-08-2019 Albumin [Mass/Vol] 4.7 g/dL 3.5 - 5 g/dL [place] ALP [Catalytic activity/Vol] 49 U/L 38 - 126 U/L [place] ALT [Catalytic activity/Vol] 21 U/L 0 - 34 U/L [place] Comment on above: The ALT test is perf ormed by an updated assay method. Please note that the reference intervals have been changed and are now sex specific. Anion gap [Moles/Vol] 20 mmol/L [place], [place] AST [Catalytic activity/Vol] 41 U/L 15 - 46 U/L [place] Bilirubin Ql (U) 0.4 mg/dL 0.2 - 1.3 mg/dL [place] Calcium [Mass/Vol] 9.0 mg/dL 8.4 - 10. 4 mg/dL [place] Chloride [Moles/Vol] 105 mmol/L 98 - 10 7 mmol/L [place] CO2 [Moles/Vol] 18 mmol/L Low 22 - 30 mmol/L [place] Creatinine [Mass/Vol] 0.67 mg/dL 0.52 - 1.25 mg/dL [place] EGFR IF NonAfrican [place] >60.0 >60 mL/min [place] Comment on above: Source- MDRD equatio n with creatinine calibration to IDMS(NKDEP) eGFR not recommended for drug dose adjustment GFR/1.73 sq M predicted among blacks MDRD (S/P/Bld) [Vol rate/Area] mL/min/{1.73_m2} >60 mL/min [place] Glucose [Mass/Vol] 71 mg/dL 70 - 100 mg/dL [place] Potassium [Moles/Vol] 4.1 mmol/L 3.5 - 5.1 mmol/L [place] Protein [Mass/Vol] 8.3 g/dL High 6.3 - 8.2 g/dL [place] Sodium [Moles/Vol] 142 mmol/L 135 - 145 mmol/L [place] Urea nitrogen [Mass/Vol] 11 mg/dL 7 - 20 mg/dL [place] Ethanolon 11-08-2019 Ethanol Lvl 0.241 g/dL High 0 - 0.01 g/dL [place] Comment on above: NOTE: This result is for medical treatment only. Analysis performed using non-forensic procedures. Hemogram (CBC) w/Auto Diffon 11-08-2019 Absolute Baso # 0.0 10*3/uL 0 - 0.2 10*3/uL [place] Absolute Neut # 4.4 10*3/uL 1.8 - 7 10*3/uL [place] Basophils/100 WBC (Bld) 0.5 % 0 - 2 % [place] Eosinophils (Bld) [#/Vol] 0.0 10*3/uL 0 - 0.5 10*3/uL [place] Eosinophils/100 WBC (Bld) 0.4 % Low 1 - 6 % [place] Erythrocyte distribution width (RBC) [Ratio] 13.3 % 11.5 - 14.5 % [place] Granulocytes/100 WBC (Bld) 67.1 % 40 - 80 % [place] Hematocrit (Bld) [Volume fraction] 40.7 % 35 - 47 % [place] Hemoglobin (Bld) [Mass/Vol] 14.0 g/dL 11.7 - 16 g/dL [place] Interpretation and review of laboratory results Abnormal [place] Lymphocytes (Bld) [#/Vol] 1.8 10*3/uL 1 - 4.3 10*3/uL [place] Lymphocytes/100 WBC (Bld) 27.4 % 20 - 40 % [place] MCH (RBC) [Entitic mass] 31.5 pg 26 - 34 pg [place] MCHC (RBC) [Mass/Vol] 34.4 % 32 - 36 % [address] [place] MCV (RBC) [Entitic vol] 91.6 fL 79 - 98 fL [place], [place] Monocytes (Bld) [#/Vol] 0.3 10*3/uL 0 - 0.8 10*3/uL [place] Monocytes/100 WBC (Bld) 4.6 % 2 - 10 % [place] Platelet mean volume (Bld) [Entitic vol] 6.5 fL Low 7.4 - 10.4 fL [place], [place] Platelets (Bld) [#/Vol] 394 10*3/uL 140 - 440 10*3/uL [place] RBC (Bld) [#/Vol] 4.45 10*6/uL 3.8 - 5.2 10*6/uL [place] WBC (Bld) [#/Vol] 6.6 10*3/uL 3.6 - 10.7 10*3/uL [place] Test Performed by [facility], [address] [place], [place] [id number] [place] [address] Otheron 11-08-2019 Interpretation and review of laboratory results Abnormal [place] Test Performed by [facility], [address] [place], [place] [id number] [place] [address] , URINEon 0 Beta HCG ( test) Ql (U) Negative Negative NA [place] Comment on above: is the mos t common reason for HCG in urine, although choriocarcinoma, hydatidiform mole, and certain nontropho- blastic malignancies also result in detectable urinary HCG levels. Sensitivity = 20mIU/mL. Test Performed by [facility], [address] [place], [place] [id number] [place] [address] Urinalysison 11-08-2019 Appearance (U) Clear Clear NA [place] Bacteria, UA Few Negative /[HPF] [place] Bilirubin Urine Negative Negative mg/dL [place] Color (U) Light-Yellow Lt. Yellow NA [place], [place] Glucose, Ur Normal Normal (<70) mg/dL [place] Hyaline Casts, UA 3-5 Negative /[LPF] [place] Ketones Ql (U) 10 mg/dL Negative [place] LEUKOCYTES, UA 25 Negative Jin/uL [place], [place] Mucous Threads Few Negative /[LPF] [place] Nitrite, Urine Negative Negative NA [place], [place] Occult Blood,Urine 0.1 mg/dL Negative [place] pH (U) 5.0 [pH] [place] Protein (U) [Mass/Vol] Negative Negat kandy mg/dL [place] RBC (U) [#/Vol] 0-2 0 - 2 /[HPF] [place], [place] Specific [place], Urine 1.011 [place] Squam Epithel, UA 3-5 3 - 5 /[HPF] [place] Urobilinogen, Urine Normal Normal ( 0-1) mg/dL [place] WBC, UA 11-25 0 - 5 /[HPF] [place] Test Performed by [facility], [address], [place], [place] [address] [place] Urine Drug Screenon 11-08-19 20 Amphetamines, urine Negative [place] Barbiturates, Ur Negative [place], [place] Benzodiazepine Ur Qual Negative [place], [place] Cocaine Metabolites, Ur Negative [place], [place] Methadone, Urine Negative [place] Opiates, Urine Negative [place] Oxycodone Screen, Ur Negative [place] PCP, Urine Negative [place] Comment on above: The expected value f or all of the drugs listed above is Negative. The following drugs or drug groups have been screened for by Immunoassay at the following thresholds: Amphetamine class (1000 ng/mL), Barbiturates (200 ng/mL), Benzodiazepines (200 ng/mL), Cocaine (300 ng/mL), Methadone (300 ng/mL), Opiates (300 ng/mL), Oxycodone (100 ng/mL), and PCP (25 ng/mL). NOTE: These results are for medical treatment only. Analysis performed using non-forensic procedures. POSITIVE results are NOT confirmed by a more specific alternative method unless requested. If confirmation is needed, request confirmation under separate order. Test Performed by [facility], [address], [place], [place] [address] [place] XR CHEST PORTABLEon 11-08-19 [place], [facility] Incoming Radiology Results From [facility] - 11/08/2019 1:38 AM EDT Patient Name: GELY HICKS ---Diagnostic Radiology--- Exam Date/Time 11/08/2019 01:30:00 EDT Exam CR Chest Portable Ordering Physician TIM PERRY Accession Number [id number] CPT4 Codes 34836 () Reason For Exam SOB, vapes. r/o lung pathology Report PORTABLE CHEST Clinical indication: Short of breath. Patient vapes. Comparison: None The cardiac silhouette and mediastinal contours are not enlarged. The lungs show no edema or focal acute infiltrates. No pleural effusions are identified. IMPRESSION: NO ACUTE RADIOGRAPHIC ABNORMALITY IS NOTED IN THE CHEST. Report Dictated on --- Final --- Dictating Physician: MD VALENCIA DIANE Signed Date and Time: 11/08/2019 1:37 am Signed by: MD VALENCIA DIANE Transcribed Date and Time: 11/08/2019 1:38 [place] Patient Name: GELY HICKS ---Diagnostic Radiology--- Exam Date/Time 11/08/2019 01:30:00 EDT Exam CR Chest Portable Ordering Physician TIM PERRY Accession Number [id number] CPT4 Codes 87027 () Reason For Exam SOB, vapes. r/o lung pathology Report PORTABLE CHEST Clinical indication: Short of breath. Patient vapes. Comparison: None The cardiac silhouette and mediastinal contours are not enlarged. The lungs show no edema or focal acute infiltrates. No pleural effusions are identified. IMPRESSION: NO ACUTE RADIOGRAPHIC ABNORMALITY IS NOTED IN THE CHEST. Report Dictated on --- Final --- Dictating Physician: MD VALENCIA DIANE Signed Date and Time: 11/08/2019 1:37 am Signed by: MD VALENCIA DIANE Transcribed Date and Time: 11/08/2019 1:38 [place] .Auto Diffon 10-30-2019 Ammonia (P) [Mass/Vol] 0.40 10 3/mcL Normal 0.09-1.40 [facility] ([place]) Comment on above: Performed By: #### C BC, ADIFF, ANEU, CMP, GFR #### [address] [address] Basophils (Bld) [#/Vol] 0.10 10 3/mcL Normal 0.00-0.27 [facility] ([place]) Comment on above: Performed By: #### C BC, ADIFF, ANEU, CMP, GFR #### [address] [address] Basophils/100 WBC (Bld) 1.0 % Normal 0.0-2.5 [facility] ([place]) Comment on above: Performed By: #### C BC, ADIFF, ANEU, CMP, GFR #### [address] [address] Eosinophils (Bld) [#/Vol] 0.10 10 3/mcL Normal 0.00-0.65 [facility] ([place]) Comment on above: Performed By: #### C BC, ADIFF, ANEU, CMP, GFR #### [address] [address] Eosinophils/100 WBC (Bld) 2.0 % Normal 0.0-6.0 [facility] ([place]) Comment on above: Performed By: #### C BC, ADIFF, ANEU, CMP, GFR #### [address] [address] Lymphocytes (Bld) [#/Vol] 2.00 10 3/mcL Normal 0.90-4.32 [facility] ([place]) Comment on above: Performed By: #### C BC, ADIFF, ANEU, CMP, GFR #### [address] [address] Lymphocytes/100 WBC (Bld) 29.5 % Normal 20.0-40.0 [facility] ([place] Comment on above: Performed By: #### C BC, ADIFF, ANEU, CMP, GFR #### [address] [address] Monocytes/100 WBC (Bld) 6.3 % Normal 2.0-13.0 [facility] ([place]) Comment on above: Performed By: #### C BC, ADIFF, ANEU, CMP, GFR #### [address] [address] Neutrophils/100 WBC (Bld) 61.2 % Normal 50.0-75.0 [facility] ([place]) Comment on above: Performed By: #### C BC, ADIFF, ANEU, CMP, GFR #### [address] [address] .GFRon 10-30-2019 GFR Non- >60 Normal [facility] ([place]) Comment on above: Result Comment: GFR Population mean for , Non- Americans Ages 20-29 = 116 mL/min/1.73 sq.m. Ages 30-39 = 107 mL/min/1.73 sq.m. Ages 40-49 = 99 mL/min/1.73 sq.m. Ages 50-59 = 93 mL/min/1.73 sq.m. Ages 60-69 = 85 mL/min/1.73 sq.m. Ages 70+ = 75 mL/min/1.73 sq.m. Chronic Kidney Disease: Less than 60 mL/min/1.73 square meters End Stage Renal Disease: Less than 15 mL/min/1.73 square meters Performed By: #### C BC, ADIFF, ANEU, CMP, GFR #### [address] [address] GFR >60 Normal [facility] ([place]) Comment on above: Result Comment: GFR Population mean for , Non- Americans Ages 20-29 = 116 mL/min/1.73 sq.m. Ages 30-39 = 107 mL/min/1.73 sq.m. Ages 40-49 = 99 mL/min/1.73 sq.m. Ages 50-59 = 93 mL/min/1.73 sq.m. Ages 60-69 = 85 mL/min/1.73 sq.m. Ages 70+ = 75 mL/min/1.73 sq.m. Chronic Kidney Disease: Less than 60 mL/min/1.73 square meters End Stage Renal Disease: Less than 15 mL/min/1.73 square meters Performed By: #### C BC, ADIFF, ANEU, CMP, GFR #### [address] [address] .NEUABSon 10-30-2019 Neutrophils (Bld) [#/Vol] 4.10 10 3/mcL Normal 2.25-8.10 [facility] ([place]) Comment on above: Performed By: #### C BC, ADIFF, ANEU, CMP, GFR #### [address] [address] CBCon 10-30-2019 Erythrocyte distribution width (RBC) [Ratio] 13.2 % Normal 11.5-15.5 [facility] ([place]) Comment on above: Performed By: #### C BC, ADIFF, ANEU, CMP, GFR #### [place] [address] Hematocrit (Bld) [Volume fraction] 38.8 % Normal 34.0-46.0 [facility] ([place]) Comment on above: Performed By: #### C BC, ADIFF, ANEU, CMP, GFR #### [address] [address] Hemoglobin (Bld) [Mass/Vol] 13.1 G/dL Normal 12.0-16.0 [facility] ([place]) Comment on above: Performed By: #### C BC, ADIFF, ANEU, CMP, GFR #### [address] [address] MCH (RBC) [Entitic mass] 31.3 pg Normal 27.0-33.0 [facility] ([place]) Comment on above: Performed By: #### C BC, ADIFF, ANEU, CMP, GFR #### [address] [address] MCHC (RBC) [Mass/Vol] 33.7 G/dL Normal 32.0-36.0 [facility] ([place]) Comment on above: Performed By: #### C BC, ADIFF, ANEU, CMP, GFR #### [place] [id number] MCV (RBC) [Entitic vol] 92.9 fL Normal 80.0-99.0 [facility] ([place]) Comment on above: Performed By: #### C BC, ADIFF, ANEU, CMP, GFR #### [place] [id number] Platelet mean volume (Bld) [Entitic vol] 6.5 fL Low 6.6-10.5 [facility] ([place]) Comment on above: Performed By: #### C BC, ADIFF, ANEU, CMP, GFR #### [place] [id number] Platelets (Bld) [#/Vol] 319 10 3/mcL Normal 150-450 [facility] ([place]) Comment on above: Performed By: #### C BC, ADIFF, ANEU, CMP, GFR #### [place] [id number] RBC (Bld) [#/Vol] 4.18 10 6/mcL Normal 4.10-5.30 [facility] ([place]) Comment on above: Performed By: #### C BC, ADIFF, ANEU, CMP, GFR #### [address] [address] WBC (Bld) [#/Vol] 6.70 10 3/mcL Normal 4.50-10.80 [facility] ([place]) Comment on above: Performed By: #### C BC, ADIFF, ANEU, CMP, GFR #### [address] [address] CMPon 10-30-2019 Albumin [Mass/Vol] 3.1 G/dL Low 3.2-4.8 [facility] ([place]) Comment on above: Performed By: #### C BC, ADIFF, ANEU, CMP, GFR #### [address] [address] Albumin/Globulin [Mass ratio] 0.9 {ratio} Normal 0.9-1.6 [facility] ([place]) Comment on above: Performed By: #### C BC, ADIFF, ANEU, CMP, GFR #### [address] [address] ALP [Catalytic activity/Vol] 36 U/L Normal 33-118 [facility] ([place]) Comment on above: Performed By: #### C BC, ADIFF, ANEU, CMP, GFR ####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 Emergency department patient visit Denny Caruso MD Work Phone: 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) Start: 09-02-2022 End: 09-02-2022 Patient encounter procedure Denia Villa PA-C Work Phone: [facility] Comment on above: Irregular bleeding ( Primary Dx); Encounter for surveillance of contraceptive pills Start: 08-10-2022 Telephone encounter Jason Borja MD Work Phone: [facility] Comment on above: Results Start: 08-05-2022 End: 08-05-2022 Patient encounter procedure Jason Borja MD Work Phone: [facility] Comment on above: Exposure to sexually transmitted disease (STD) (Primary Dx); Malaise and fatigue; Need for HPV vaccination Start: 07-22-2022 Refill Betty Quiroga APRN. TIRE CURER Work Phone: [facility] Comment on above: Refill Request Start: 07-08-2022 Refill Betty Quiroga APRN. TIRE CURER Work Phone: [facility] Comment on above: Refill Request Start: 06-16-2022 End: 06-16-2022 Patient encounter procedure Betty Quiroga APRN.TIRE CURER Work Phone: [facility] Comment on above: Viral URI with cough (Primary Dx); Elevated blood-pressure reading without diagnosis of hypertension; Mid sternal chest pain; Pharyngitis, unspecified etiology Start: 04-29-2022 Telephone encounter Denia Whitfield darell Villa PA-C Work Phone: [facility] Comment on above: Results Start: 04-27-2022 End: 04-27-2022 Emergency department patient visit Joseph Solis MD Work Phone: [facility] Comment on above: Acute alcoholic into xication without complication (HCC) (Primary Dx) Start: 02-02-2022 End: 02-02-2022 Patient encounter procedure Jason Borja MD Work Phone: [facility] Comment on above: Secondary amenorrhea (Primary Dx); Exposure to sexually transmitted disease (STD); Malaise and fatigue Start: 05-20-2021 End: 05-21-2021 Emergency department patient visit Lorenzo Alberto DO Work Phone: [facility] Comment on above: Insect bite hand, le ft, initial encounter (Primary Dx) Start: 05-08-2021 End: 05-09-2021 Emergency department patient visit Tiburcio Celine DO Work Phone: [facility] Comment on above: Suicidal ideation (P rimary Dx); Acute alcoholic intoxication without complication (HCC) Start: 09-05-2020 End: 09-05-2020 Emergency department patient visit Cameron Brambila Work Phone: [facility] Comment on above: Acute alcoholic into xication without complication (HCC) (Primary Dx); Tachycardia Start: 04-08-2020 End: 04-08-2020 Subsequent hospital visit by physician Adrian Theodore Work Phone: [facility] Start: 11-08-2019 End: 11-08-2019 Emergency department patient visit Tim Fernandez Work Phone: [facility] Comment on above: Acute alcoholic into xication without complication (HCC) (Primary Dx) Procedures Date Procedure Procedure Detail Performing Clinician Start: 01-25-2024 Mri abdomen w/o & w/contrast material Joseph Walsh MD Work Phone: Start: 12-29-2023 Us abdominal real ti me w/image limited Joseph Walsh MD Work Phone: Start: 08-26-2023 Basic metabolic pane l calcium total Tim A Gombash DO Work Phone: Start: 08-26-2023 Urinalysis complete panel - Urine Tim A Gombash DO Work Phone: Start: 08-26-2023 Urnls dip stick/tabl et rgnt auto w/o microscopy Tim A Gombash DO Work Phone: Start: 06-07-2023 Drug tst prsmv instr mnt chem analyzers pr date aPtsy Carl MD Work Phone: Start: 06-07-2023 Urine test visual color cmprsn meths Patsy Carl MD Work Phone: Start: 01-30-2023 Radex foot complete minimum 3 views Janusz Andrea MD Work Phone: Start: 01-30-2023 Radiologic exam ches t single view Janusz Andrea MD Work Phone: Start: 01-30-2023 Ct abdomen & pelvis w/o contrast material Janusz Andrea MD Work Phone: Start: 01-30-2023 Ct cervical spine w/ o contrast material Janusz Andrea MD Work Phone: Start: 01-30-2023 Ct head/brain w/o co ntrast material Janusz Andrea MD Work Phone: Start: 01-30-2023 Ecg routine ecg w/le ast 12 lds trcg only w/o i&r Janusz Andrea MD Work Phone: Start: 01-30-2023 Basic metabolic pane l calcium total Janusz Andrea MD Work Phone: Start: 01-30-2023 Urine test visual color cmprsn meths Janusz Andrea MD Work Phone: Start: 11-21-2022 Ct angiography head w/contrast/noncontrast Dian SebastianMurali Haydenstaci [employer] - [employer]ER Work Phone: Start: 11-21-2022 Basic metabolic pane l calcium total Dian CortesMurali Haydenstaci [employer] - [employer]ER Work Phone: Start: 11-21-2022 Urine test visual color cmprsn meths Dian CortesMurali Haydenstaci [employer] - [employer]RE [employer]ER Work Phone: Start: 06-16-2022 STREP A MOLECULAR (POC) [facility] Provider Start: 04-27-2022 ADD ON LAB TEST Gala Corbin MD Work Phone: Start: 04-27-2022 Drug tst prsmv instr mnt chem analyzers pr date Joseph Solis MD Work Phone: Start: 04-27-2022 Urnls dip stick/tabl et rgnt auto w/o microscopy Joseph Solis MD Work Phone: Start: 04-27-2022 Assay of ethanol Joseph Solis MD Work Phone: Start: 04-27-2022 Comprehensive metabo lic panel Joseph Solis MD Work Phone: Start: 04-20-2022 Adult depression scr eening assessment Denia Villa PA-C Work Phone: Start: 05-08-2021 Drug screen class list a Tiburcio Celine DO Work Phone: Start: 05-08-2021 Urnls dip stick/tabl et rgnt auto w/o microscopy Tiburcio Celine DO Work Phone: Start: 05-08-2021 Assay of ethanol Tiburcio Celine DO Work Phone: Start: 05-08-2021 Comprehensive metabo lic panel Tiburcio Celine DO Work Phone: Start: 05-08-2021 COVID-19, RAPID Tiburcio Celine DO Work Phone: Start: 02-26-2021 Adult depression scr eening assessment Jason Borja MD Work Phone: Start: 09-05-2020 Assay of ethanol Cameron Brambila Work Phone: Start: 09-05-2020 Assay of troponin quantitative Cameron Brambila Work Phone: Start: 09-05-2020 Blood count complete auto&auto difrntl wbc Cameron Brambila Work Phone: Start: 09-05-2020 Comprehensive metabo lic panel Cameron Brambila Work Phone: Start: 09-05-2020 Fibrin dgradj produc ts d-dimer quantitative Cameron Brambila Work Phone: Start: 09-05-2020 Gonadotropin chorion ic qualitative Cameron Brambila Work Phone: Start: 04-08-2020 Cyclic citrullinated peptide antibody Adrian N Kamilarodrigo Work Phone: Start: 11-08-2019 Blood count complete auto&auto difrntl wbc Tim Hopkins [facility] Work Phone: Start: 11-08-2019 Drug screen class list a Tim A [facility] Work Phone: Start: 11-08-2019 Urine test visual color cmprsn meths Tim A Gombash Work Phone: Start: 11-08-2019 Urnls dip stick/tabl et rgnt auto w/o microscopy Tim A Gombash Work Phone: Start: 11-08-2019 Assay of ethanol Tim A [facility]omb[facility]mar[facility] Work Phone: Start: 11-08-2019 Comprehensive metabo lic panel Tim A Gombash Work Phone: Start: 11-08-2019 Radiologic exam ches t single view Tim A Gombash Work Phone: Plan of Treatment Date Care Activity Detail Author Start: 2074 RSV Immunization for Adults (1 - 1-dose 75+ series) RSV Immunization for Adults (1 - 1-dose 75+ series) [facility] Start: 2059 RSV Immunization aged 60 or older (1 - 1-dose 60+ series) RSV Immunization aged 60 or older (1 - 1-dose 60+ series) [facility] Start: 2049 Zoster Vaccines (1 of 2) Zoster Vaccines (1 of 2) [facility] Start: 2049 Shingles Vaccine (1 of 2) Shingles Vaccine (1 of 2) [place] Start: 05-07-2029 DTaP/Tdap/Td vaccine (7 - Td) DTaP/Tdap/Td vaccine (7 - Td) [place] Start: 05-07-2029 DTaP/Tdap/Td vaccine (8 - Td or Tdap) DTaP/Tdap/Td vaccine (8 - Td or Tdap) [facility] Start: 05-07-2029 DTaP/Tdap/Td vaccine (8 - Td) DTaP/Tdap/Td vaccine (8 - Td) [place] Start: 05-07-2029 DTaP/Tdap/Td Vaccines (8 - Td or Tdap) DTaP/Tdap/Td Vaccines (8 - Td or Tdap) [facility] Start: 05-07-[address] [facility] Start: 05-14-2026 Pap Testing Pap Testing [facility] Start: 05-14-2026 Screening for malignant neoplasm of cervix Pap Testing [facility] Start: 08-22-2025 End: 08-22-2025 Patient encounter procedure 08/22/2025 10:30 AM EST Office Visit CP [facility] [address] [phone] Jason Borja MD [address] [phone] Annual [facility] Comment on above: Annual Start: 08-21-2025 Screening for malignant neoplasm of cervix Cervical Cancer Screening [facility] Start: 04-20-2025 [address]AP [address]AP TESTING [facility] Start: 09-06-2024 End: 12-06-2024 Choriogonadotropin.beta subunit [Units/volume] in Serum or Plasma HCG QUANTITATIVE Lab Routine Secondary amenorrhea Expected: 09/06/2024, Expires: 12/06/2024 [email or web address] Phone: Comment on above: Expected: 09/06/2024, Expires: Start: 08-21-2024 End: 11-20-2024 CBC W Auto Differential panel - Blood COMPLETE BLOOD COUNT AND DIFFERENTIAL Lab Routine Malaise and fatigue Expected: 08/21/2024, Expires: 11/20/2024 [facility] Comment on above: Expected: 08/21/2024, Expires: Start: 08-21-2024 End: 11-20-2024 CHLAMYDIA/N.GONORRHOEAE,T .VAGINALIS,RNA,QL,TMA,PAP VIAL CHLAMYDIA/N.GONORRHOEAE, T.VAGINALIS,RNA,QL,TMA,P AP VIAL Lab Routine Exposure to sexually transmitted disease (STD) Expected: 08/21/2024, Expires: 11/20/2024 [email or web address] Phone: Comment on above: Expected: 08/21/2024, Expires: Start: 08-21-2024 End: 11-20-2024 Comprehensive metabolic 2000 panel - Serum or Plasma COMPREHENSIVE METABOLIC PANEL Lab Routine Malaise and fatigue Expected: 08/21/2024, Expires: 11/20/2024 [facility] Comment on above: Expected: 08/21/2024, Expires: Start: 08-21-2024 End: 11-20-2024 Hepatitis B virus surface Ag [Presence] in Serum HEPATITIS B SURFACE ANTIGEN Lab Routine Exposure to sexually transmitted disease (STD) Expected: 08/21/2024, Expires: 11/20/2024 [facility] Comment on above: Expected: 08/21/2024, Expires: Start: 08-21-2024 End: 11-20-2024 HERPES SIMPLEX TYPE 1 AND 2 IG HERPES SIMPLEX TYPE 1 AND 2 IG Lab Routine Exposure to sexually transmitted disease (STD) Expected: 08/21/2024, Expires: 11/20/2024 [facility] Comment on above: Expected: 08/21/2024, Expires: Start: 08-21-2024 End: 11-20-2024 HIV 1+2 Ab [Presence] in Serum or Plasma by Immunoassay HIV 1/2 COMBO WITH REFLEX TO DIFFERENTIATION Lab Routine Exposure to sexually transmitted disease (STD) Expected: 08/21/2024, Expires: 11/20/2024 [facility] Comment on above: Expected: 08/21/2024, Expires: Start: 08-21-2024 End: 11-20-2024 SYPHILIS ANTIBODY CASCADING REFLEX SYPHILIS ANTIBODY CASCADING REFLEX Lab Routine Exposure to sexually transmitted disease (STD) Expected: 08/21/2024, Expires: 11/20/2024 [facility] Comment on above: Expected: 08/21/2024, Expires: Start: 08-21-2024 End: 08-21-2025 THYROID PEROXIDASE ANTIBODY THYROID PEROXIDASE ANTIBODY Lab Routine Malaise and fatigue Expected: 08/21/2024, Expires: 08/21/2025 [facility] Comment on above: Expected: 08/21/2024, Expires: Start: 08-21-2024 End: 08-21-2025 Thyrotropin [Units/volume] in Serum or Plasma THYROID STIMULATING HORMONE Lab Routine Malaise and fatigue Expected: 08/21/2024, Expires: 08/21/2025 [facility] Comment on above: Expected: 08/21/2024, Expires: Start: 08-21-2024 End: 08-21-2025 Thyroxine (T4) free [Mass/volume] in Serum or Plasma T4 FREE/FREE THYROXINE Lab Routine Malaise and fatigue Expected: 08/21/2024, Expires: 08/21/2025 [facility] Comment on above: Expected: 08/21/2024, Expires: Start: 08-21-2024 End: 08-21-2025 Triiodothyronine (T3) Free [Mass/volume] in Serum or Plasma T3, FREE Lab Routine Malaise and fatigue Expected: 08/21/2024, Expires: 08/21/2025 [facility] Comment on above: Expected: 08/21/2024, Expires: Start: 08-21-2024 End: 08-21-2024 Patient encounter procedure 08/21/2024 9:15 AM EST Office Visit [facility] [address] [place] [id number] Jason Borja MD [address] [place] [address] Annual [facility] Comment on above: Annual Start: 07-24-2024 End: 07-24-2024 Patient encounter procedure 07/24/2024 9:00 AM EST Office Visit [facility] [address] [place] [id number] Jason Borja MD [address] [phone] Annual [facility] Comment on above: Annual Start: 05-14-2024 Screening for malignant neoplasm of cervix Cervical Cancer Screening [facility] Start: 04-23-2024 COVID-19 Vaccine ( season) COVID-19 Vaccine ( season) [facility] Start: 04-23-2024 Covid-19 Vaccine ( season) Covid-19 Vaccine ( season) [facility] Start: 04-23-[address] [facility] Start: 03-23-2024 CHLAMYDIA SCREENING (18-24) CHLAMYDIA SCREENING (18-24) [facility] Start: 03-23-2024 GC (GONORRHEA) SCREENING (18-24) GC (GONORRHEA) SCREENING (18-) [facility] Start: 02-27-2024 PAP TESTING PAP TESTING [facility] Start: 08-23-2023 Behavioral Health Screening Behavioral Health Screening [facility] Start: 08-23-2023 Depression Assessment Depression Assessment [facility] Start: 08-04-2023 End: 11-03-2023 ABO and Rh group panel - Blood ABO AND RH ONLY Blood Bank Routine 5 weeks gestation of Expected: 08/04/2023, Expires: 11/03/2023 [email or web address] Phone: Comment on above: Expected: 08/04/2023, Expires: 4 Start: 08-04-2023 End: 11-03-2023 Choriogonadotropin.beta subunit [Units/volume] in Serum or Plasma HCG QUANTITATIVE Lab Routine 5 weeks gestation of Expected: 08/04/2023, Expires: 11/03/2023 [email or web address] Phone: Comment on above: Expected: 08/04/2023, Expires: 4 Start: 05-14-2023 End: 07-14-2023 CHLAMYDIA/N.GONORRHOEAE,T .VAGINALIS,RNA,QL,TMA,PAP VIAL CHLAMYDIA/N.GONORRHOEAE, T.VAGINALIS,RNA,QL,TMA,P AP VIAL Lab Routine Vaginal discharge Other problems related to lifestyle Expected: 05/14/2023, Expires: 07/14/2023 [email or web address] Phone: Comment on above: Expected: 05/14/2023, Expires: 3 Start: 04-23-2023 Covid-19 Vaccine ( season) Covid-[address] () [facility] Start: 04-23-2023 Influenza vaccination [facility] Start: 04-20-2023 Adult depression screening assessment DEPRESSION SCREENING [facility] Start: 03-23-2023 End: 05-23-2023 CHLAMYDIA/GC/TRICH PROFILE CHLAMYDIA/GC/TRICH PROFILE Lab Routine Vaginal discharge Other problems related to lifestyle Expected: 03/23/2023, Expires: 05/23/2023 [email or web address] Phone: Comment on above: Expected: 03/23/2023, Expires: 3 Start: 03-23-2023 End: 05-23-2023 Herpes simplex virus+Varicella zoster virus DNA [Presence] in Unspecified specimen by MARCY with probe detection HSV1,2/VZV NAAT LESION Lab Routine Vulvar lesion Expected: 03/23/2023, Expires: 05/23/2023 [email or web address] Phone: Comment on above: Expected: 03/23/2023, Expires: 3 Start: 02-19-2023 Influenza vaccination INFLUENZA (#1) [facility] Comment on above: Postponed from 04/23/2022 (Declined at t his time) Start: 02-02-2023 CHLAMYDIA SCREENING (18-24) CHLAMYDIA SCREENING (18-24) [facility] Start: 02-02-2023 GC (GONORRHEA) SCREENING (18-24) GC (GONORRHEA) SCREENING (1824) [facility] Start: 09-02-2022 End: 11-02-2022 Choriogonadotropin.beta subunit [Units/volume] in Serum or Plasma HCG QUANTITATIVE Lab Routine Irregular bleeding Expected: 09/02/2022, Expires: 11/02/2022 [email or web address] Phone: Comment on above: Expected: 09/02/2022, Expires: 3 Start: 08-23-2022 DE[address]ESS[address] DEPRESSION ASSESSMENT [facility] Start: 08-05-2022 End: 10-05-2022 Hepatitis B virus surface Ag [Presence] in Serum HEP B SURF AG SCRN Lab Routine Exposure to sexually transmitted disease (STD) Expected: 08/05/2022, Expires: 10/05/2022 [email or web address] Phone: Comment on above: Expected: 08/05/2022, Expires: 3 Start: 08-05-2022 End: 10-05-2022 Hepatitis C virus Ab [Presence] in Serum HEP C AB IA W/CONF SCRN Lab Routine Exposure to sexually transmitted disease (STD) Expected: 08/05/2022, Expires: 10/05/2022 [email or web address] Phone: Comment on above: Expected: 08/05/2022, Expires: 3 Start: 08-05-2022 End: 08-05-2023 HERPES SIMPLEX TYPE 1 AND 2 IG HERPES SIMPLEX TYPE 1 AND 2 IG Lab Routine Exposure to sexually transmitted disease (STD) Expected: 08/05/2022, Expires: 08/05/2023 [employer] Phone: Comment on above: Expected: 08/05/2022, Expires: 3 Start: 08-05-2022 End: 10-05-2022 HIV 1+2 Ab [Presence] in Serum or Plasma by Immunoassay HIV 1 2 COMBO(AG/AB),WITH REFLEX TO DIFFERENTIATION Lab Routine Exposure to sexually transmitted disease (STD) Malaise and fatigue Expected: 08/05/2022, Expires: 10/05/2022 [employer] Phone: Comment on above: Expected: 08/05/2022, Expires: 3 Start: 08-05-2022 End: 10-05-2022 SYPHILIS TOTAL W/REFLEX SYPHILIS TOTAL W/REFLEX Lab Routine Exposure to sexually transmitted disease (STD) Expected: 08/05/2022, Expires: 10/05/2022 [employer] Phone: Comment on above: Expected: 08/05/2022, Expires: 3 Start: 04-23-[address] [facility] Start: 02-26-2022 Adult depression screening assessment DEPRESSION SCREENING [facility] Start: 02-26-2022 CHLAMYDIA SCREENING (18-24) CHLAMYDIA SCREENING (18-24) [facility] Start: 02-26-2022 GC (GONORRHEA) SCREENING (18-24) GC (GONORRHEA) SCREENING (18-24) [facility] Start: 02-02-2022 End: 04-04-2022 CHLAMYDIA/GC/TRICH PROFILE CHLAMYDIA/GC/TRICH PROFILE Lab Routine Exposure to sexually transmitted disease (STD) Expected: 02/02/2022, Expires: 04/04/2022 [employer] Phone: Comment on above: Expected: 02/02/2022, Expires: 2 Start: 02-02-2022 End: 04-04-2022 Choriogonadotropin.beta subunit [Units/volume] in Serum or Plasma HCG QUANTITATIVE Lab Routine Secondary amenorrhea Expected: 02/02/2022, Expires: 04/04/2022 [employer] Phone: Comment on above: Expected: 02/02/2022, Expires: 2 Start: 02-02-2022 End: 04-04-2022 Hepatitis B virus surface Ag [Presence] in Serum HEP B SURF AG CONFRM Lab Routine Exposure to sexually transmitted disease (STD) Expected: 02/02/2022, Expires: 04/04/2022 [employer] Phone: Comment on above: Expected: 02/02/2022, Expires: 2 Start: 02-02-2022 End: 04-04-2022 Hepatitis C virus Ab [Presence] in Serum HEP C AB IA W/CONF SCRN Lab Routine Exposure to sexually transmitted disease (STD) Expected: 02/02/2022, Expires: 04/04/2022 [employer] Phone: Comment on above: Expected: 02/02/2022, Expires: 2 Start: 02-02-2022 End: 02-02-2023 HERPES SIMPLEX TYPE 1 AND 2 IG HERPES SIMPLEX TYPE 1 AND 2 IG Lab Routine Exposure to sexually transmitted disease (STD) Expected: 02/02/2022, Expires: 02/02/2023 [employer] Phone: Comment on above: Expected: 02/02/2022, Expires: 3 Start: 02-02-2022 End: 02-02-2023 Herpes simplex virus IgM Ab [Presence] in Serum by Immunoassay HERPES SIMPLEX IGM AB Lab Routine Exposure to sexually transmitted disease (STD) Expected: 02/02/2022, Expires: 02/02/2023 [employer] Phone: Comment on above: Expected: 02/02/2022, Expires: 3 Start: 02-02-2022 End: 04-04-2022 HIV 1+2 Ab [Presence] in Serum or Plasma by Immunoassay HIV 1 2 COMBO(AG/AB),WITH REFLEX TO DIFFERENTIATION Lab Routine Exposure to sexually transmitted disease (STD) Expected: 02/02/2022, Expires: 04/04/2022 [employer] Phone: Comment on above: Expected: 02/02/2022, Expires: 2 Start: 02-02-2022 End: 04-04-2022 Prolactin [Mass/volume] in Serum or Plasma PROLACTIN BLD Lab Routine Secondary amenorrhea Expected: 02/02/2022, Expires: 04/04/2022 [employer] Phone: Comment on above: Expected: 02/02/2022, Expires: 2 Start: 02-02-2022 End: 04-04-2022 SYPHILIS TOTAL W/REFLEX SYPHILIS TOTAL W/REFLEX Lab Routine Exposure to sexually transmitted disease (STD) Expected: 02/02/2022, Expires: 04/04/2022 [employer] Phone: Comment on above: Expected: 02/02/2022, Expires: 2 Start: 02-02-2022 End: 02-02-2023 THYROID PEROXIDASE ANTIBODY BLOOD THYROID PEROXIDASE ANTIBODY BLOOD Lab Routine Malaise and fatigue Expected: 02/02/2022, Expires: 02/02/2023 [employer] Phone: Comment on above: Expected: 02/02/2022, Expires: 3 Start: 02-02-2022 End: 02-02-2023 Thyrotropin [Units/volume] in Serum or Plasma TSH BLD Lab Routine Malaise and fatigue Expected: 02/02/2022, Expires: 02/02/2023 [employer] Phone: Comment on above: Expected: 02/02/2022, Expires: 3 Start: 02-02-2022 End: 02-02-2023 Thyroxine (T4) free [Mass/volume] in Serum or Plasma T4 FREE/FREE THYROX Lab Routine Malaise and fatigue Expected: 02/02/2022, Expires: 02/02/2023 [employer] Work Phone: Comment on above: Expected: 02/02/2022, Expires: 3 Start: 02-02-2022 End: 02-02-2023 Triiodothyronine (T3) Free [Mass/volume] in Serum or Plasma T3 FREE BLD Lab Routine Malaise and fatigue Expected: 02/02/2022, Expires: 02/02/2023 [employer] Work Phone: Comment on above: Expected: 02/02/2022, Expires: 3 Start: 08-23-2021 DEPRESSION ASSESSMENT DEPRESSION ASSESSMENT [facility] Start: 04-23-2021 Influenza vaccination Flu vaccine (#1) [facility] Work Phone: Start: 04-23-2020 Influenza vaccination Flu vaccine (#1) [place] Start: 2020 Screening for malignant neoplasm of cervix [facility] Start: 04-23-2019 Influenza vaccination Flu vaccine (#1) [place] Start: 2017 Anxiety Screening Anxiety Screening [facility] Start: 2017 Depression Screening Depression Screening [facility] Start: 2017 Hepatitis C screening [facility] Start: 04-23-2016 HPV vaccine (2 - 3-dose series) HPV vaccine (2 - 3-dose series) [facility] Start: 04-23-2016 HPV Vaccines (2 - 3-dose series) HPV Vaccines (2 - 3-dose series) [facility] Start: 2015 Chlamydia screen Chlamydia screen [place] Start: 2015 Screening for Chlamydia trachomatis Chlamydia screen [facility] Start: 2014 HIV screen HIV screen [place] Start: 2014 HIV screening HIV screen [facility] Start: 2013 PEDS TO ADULT TRANSITION ANNUAL ASSESSMENT PEDS TO ADULT TRANSITION ANNUAL ASSESSMENT [facility] Start: 2011 COVID-19 Vaccine (1) COVID-19 Vaccine (1) [facility] Work Phone: Start: 2011 Depression Screen Depression Screen [facility] Start: 2011 Depression Screening Depression Screening [facility] Start: 2011 PEDS TO ADULT TRANSITION INITIAL DISCUSSION PEDS TO ADULT TRANSITION INITIAL DISCUSSION [facility] Start: 2010 HPV vaccine (1 - 2-dose series) HPV vaccine (1 - 2-dose series) [place] Start: 2005 Pneumococcal 0-64 years Vaccine (1 - PCV) Pneumococcal 0-64 years Vaccine (1 - PCV) [facility] Start: 2005 Pneumococcal 0-64 years Vaccine (1 of 1 - PPSV23) Pneumococcal 0-64 years Vaccine (1 of 1 - PPSV23) [place] Start: 2005 Pneumococcal 0-64 years Vaccine (1 of 2 - PPSV23) Pneumococcal 0-64 years Vaccine (1 of 2 - PPSV23) [facility] Work Phone: Start: 2005 Pneumococcal Vaccine: Pediatrics (0 to 5 Years) and At-Risk Patients (6 to 64 Years) (1 - PCV) Pneumococcal Vaccine: Pediatrics (0 to 5 Years) and At-Risk Patients (6 to 64 Years) (1 - PCV) [facility] Start: 2004 COVID-19 VACCINE (#1) COVID-19 VACCINE (#1) [facility] Start: 2000 Varicella vaccine (1 of 2 - 2-dose childhood series) Varicella vaccine (1 of 2 - 2-dose childhood series) [place] Start: 1999 COVID-19 Vaccine (#1) COVID-19 Vaccine (#1) [facility] Start: 1999 Hepatitis C screening Hepatitis C screen [place] Start: 1999 HIV screening HIV Screening [facility] Start: 1999 Lipid panel Lipid Panel [facility] COVID & INFLUENZA A/ B & RSV NAAT, ROUTINE COVID & INFLUENZA A/B & RSV NAAT, ROUTINE Microbiology Routine Acute constipation Ordered: 07/13/2023 [facility] Work Phone: Comment on above: Ordered: 07/13/2023 End: 04-08-2020 Nuclear Ab IF (S) [Titer] WICHO Lab Routine Once for 1 Occurrences starting 04/08/2020 [facility]: Once for 1 Occurrences starting 04/08/20 20 until 04/08/2020 Nuclear Ab IF (S) [Titer] WICHO La b Routine 04/08/2020 9:55 AM EDT [facility] NAKIA OUTSIDE PROCEDURE SCAN OUTSIDE P ROCEDURE SCAN Procedures Ordered: 12/28/2023 [facility] Comment on above: Ordered: 12/28/2023 OUTSIDE PROCEDURE SCAN OUTSIDE P ROCEDURE SCAN Procedures Ordered: 07/10/2024 [facility] Comment on above: Ordered: 07/10/2024 OUTSIDE PROCEDURE SCAN OUTSIDE P ROCEDURE SCAN Procedures Ordered: 08/10/2024 [facility] Comment on above: Ordered: 08/10/2024 PAP REFLEX HPV MRNA WHEN ASCUS PAP REFLEX HPV MRNA WHEN ASCUS Lab Routine Screening for malignant neoplasm of cervix LGSIL on Pap smear of cervix Ordered: 05/14/2023 [facility] Work Phone: Comment on above: Ordered: 05/14/2023 PAP REFLEX HPV MRNA WHEN ASCUS PAP REFLEX HPV MRNA WHEN ASCUS Lab Routine Cervical cancer screening Ordered: 08/21/2024 [facility] Comment on above: Ordered: 08/21/2024 End: 06-07-2023 SARS-CoV-2 (COVID-19) Ag [Presence] in Respiratory specimen by Rapid immunoassay SARS-CoV-2 Antigen Microbiology STAT Once (Lab) for 1 Occurrences starting 06/07/2023 until 06/07/2023 [facility] Work Phone: Comment on above: Once (Lab) for 1 Occurrences starting until 06/07/2023 [facility] Immunizations Immunization Date Immunization Notes Care Provider Cortney lima 08-05-2022 HPV, unspecified formulation Jason Borja MD Work Phone: [facility] Work Phone: Comment on above: 0.5 mL intramuscular ly once for 1 dose to be given at 0, 2, and 6 months from first injection 04-20-2022 HPV, unspecified formulation Denia Villa PA-C Work Phone: [facility] Work Phone: Comment on above: 0.5 mL intramuscular ly once for 1 dose to be given at 0, 2, and 6 months from first injection 02-26-2021 HPV, unspecified formulation Jason Borja MD Work Phone: [facility] Work Phone: Comment on above: 0.5 mL intramuscular ly once for 1 dose to be given at 0, 2, and 6 months from first injection 05-07-2019 tetanus toxoid, redu dustin diphtheria toxoid, and acellular pertussis vaccine, adsorbed Jason Borja MD Work Phone: [facility] 06-08-2016 influenza, injectable,quadrivalent, preservative free, pediatric Jason Borja MD Work Phone: [facility] 06-08-2016 influenza virus vacc ine, unspecified formulation Denny Caruso MD Work Phone: [facility] 03-26-2016 Human Papillomavirus 9-valent vaccine Jason Borja MD Work Phone: [facility] 03-26-2016 meningococcal B vacc ine, recombinant, OMV, adjuvanted Jason Borja MD Work Phone: [facility] Work Phone: 03-26-2016 meningococcal polysaccharide (groups A, C, Y and W-135) diphtheria toxoid conjugate vaccine (MCV4P) Jason Borja MD Work Phone: [facility] 03-26-2016 varicella virus vaccine Linda Borja MD Work Phone: [facility] 03-26-2016 HPV, unspecified formulation Janusz Andrea MD Work Phone: [facility] 06-10-2015 influenza, live, intranasal, quadrivalent Jason Borja MD Work Phone: [facility] 06-08-2014 meningococcal B vacc ine, recombinant, OMV, adjuvanted Jason Borja MD Work Phone: [facility] Work Phone: 06-08-2014 meningococcal B, unspecified formulation Jason Borja MD Work Phone: [facility] Work Phone: 06-08-2014 meningococcal polysaccharide (groups A, C, Y and W-135) diphtheria toxoid conjugate vaccine (MCV4P) Jason Borja MD Work Phone: [facility] 03-19-2011 tetanus toxoid, redu dustin diphtheria toxoid, and acellular pertussis vaccine, adsorbed Jason Borja MD Work Phone: [facility] 04-02-2010 influenza virus vacc ine, live, attenuated, for intranasal use Jason Borja MD Work Phone: [facility] 07-12-2009 novel influenza-H1N1 -09, preservative-free, injectable Jason Borja MD Work Phone: [facility] 06-18-2009 influenza, seasonal, injectable Jason Borja MD Work Phone: [facility] 03-19-2009 hepatitis A vaccine, pediatric/adolescent dosage, 2 dose schedule Jason Borja MD Work Phone: [facility] 03-19-2009 varicella virus vaccine Linda Borja MD Work Phone: [facility] 03-07-2008 hepatitis A vaccine, pediatric/adolescent dosage, 2 dose schedule Jason Borja MD Work Phone: [facility] 04-23-2007 diphtheria, tetanus toxoids and acellular pertussis vaccine, unspecified formulation Jason Borja MD Work Phone: [facility] Work Phone: 04-23-2007 measles, mumps and rubella virus vaccine Jason Borja MD Work Phone: [facility] 04-23-2007 poliovirus vaccine, unspecified formulation Jason Borja MD Work Phone: [facility] 12-08-2000 diphtheria, tetanus toxoids and acellular pertussis vaccine, unspecified formulation Jason Borja MD Work Phone: [facility] Work Phone: 09-08-2000 haemophilus influenz ae type b vaccine, conjugate unspecified formulation Jason Borja MD Work Phone: [facility] 09-08-2000 measles, mumps and rubella virus vaccine Jason Borja MD Work Phone: [facility] 03-02-2000 varicella virus vaccine Linda Borja MD Work Phone: [facility] 01-28-2000 hepatitis B vaccine, pediatric or pediatric/adolescent dosage Jason Borja MD Work Phone: [facility] 1999 diphtheria, tetanus toxoids and acellular pertussis vaccine, unspecified formulation Jason Borja MD Work Phone: [facility] Work Phone: 1999 haemophilus influenz ae type b vaccine, conjugate unspecified formulation Jason Borja MD Work Phone: [facility] 1999 poliovirus vaccine, unspecified formulation Jason Borja MD Work Phone: [facility] 1999 diphtheria, tetanus toxoids and acellular pertussis vaccine, unspecified formulation Jason Borja MD Work Phone: [facility] Work Phone: 1999 haemophilus influenz ae type b vaccine, conjugate unspecified formulation Jason Bojra MD Work Phone: [facility] 1999 poliovirus vaccine, unspecified formulation Jason Borja MD Work Phone: [facility] 1999 diphtheria, tetanus toxoids and acellular pertussis vaccine, unspecified formulation Jason Borja MD Work Phone: [facility] Work Phone: 1999 haemophilus influenz ae type b vaccine, conjugate unspecified formulation Jason Borja MD Work Phone: [facility] 1999 poliovirus vaccine, unspecified formulation Jason Borja MD Work Phone: [facility] 1999 hepatitis B vaccine, pediatric or pediatric/adolescent dosage Jason Borja MD Work Phone: [facility] 1999 hepatitis B vaccine, pediatric or pediatric/adolescent dosage Jason Borja MD Work Phone: [facility] Payers Date Payer Category Payer Self-pay 2021 [employer] are - HMO MMO [employer] [id number] 2019 Unknown MMO MMO [employer] PLUS [id number] 2019-Present [phone] [address] [place] [address] PPO [id number] 2019 Unknown [id number] 2014 Unknown [id number] Unknown [id number] Unknown [id number] Unknown [id number] Social History Date Type Detail Facility Start: 11-08-2019 End: 09-05-2022 Tobacco smoking status NHIS Current every day smoker [facility] NAKIA CORTES Start: 11-08-2019 End: 08-26-2023 Alcohol intake Current drinker of alcohol (finding) [facility] NAKIA CORTES Start: 2000 [facility] Start: 11-08-2019 End: 08-26-2023 Tobacco use and exposure Never used [facility] NAKIA Samson Start: 09-05-2020 Alcohol Comment Drinks 3 white claws a night [facility] Start: 04-17-2022 End: 01-30-2023 Exposure to SARS-CoV-2 (event) Not sure [facility] of tobacco use [facility] Work Phone: Start: 05-08-2021 End: 08-26-2023 Alcohol intake [facility] Work Phone: Start: 11-20-2011 End: 08-05-2022 Tobacco smoking status NYIS Never smoked tobacco [facility] Start: 02-02-2022 End: 08-21-2024 Alcohol intake Ex-drinker (finding) [facility] Start: 11-21-2022 History SDOH Alcohol Frequency 4 [facility] Start: 11-21-2022 History SDOH Alcohol Std Drinks 2 [facility] Start: 11-21-2022 History SDOH Alcohol Binge 3 [facility] Start: 01-30-2023 End: 08-26-2023 Alcohol Use Disorder Identification Test - Consumption [AUDIT-C] [facility] How often to you hav e a drink containing alcohol? 2-3 time sa week [facility] How many standard dr inks containing alcohol do you have on a typical day? 3 or 4 [facility] How often do you hav e 6 or more drinks on 1 occasion? Monthly [facility] Adult Depression Scr eening Assessment [address] [facility] Work Phone: Start: 08-26-2023 Tobacco smoking stat us NYIS Ex-smoker [facility] History of tobacco use Current smoker [facility] History of tobacco use Cigarette Smoker S [facility] How often do you hav e 6 or more drinks on 1 occasion? Monthly [facility] How often to you hav e a drink containing alcohol? 4 or more times a week [facility] How often do you hav e 6 or more drinks on 1 occasion? Never [facility] Start: 03-23-2022 Sex Female (finding) [facility] Equipment Procedure Code Equipment Code Equipment Origin al Text Equipment Identifier Dates fluorescein 1 MG ophthalmic strip 2 strip [id number] Start: 11-21-2022 End: 11-21-2022 Clinical Notes 03-19-2020 to 09-06-2024 Telephone Encounter - Jason Borja MD - 09/06/2024 3:15 PM ESTTelephone Encounter - Jason Borja MD - 09/06/2024 3:15 PM ESTTelephone Encounter - Audra Dunn - 09/06/2024 1:22 PM EST Note Date & Type Note Facility 09-06-2024 Telephone encounter Note Order placed. Jason Borja MD [facility] 09-06-2024 Miscellaneous Notes Order placed. Jason Borja MD Please place order for test. Pt will be coming in at 3:15 Audra Dunn documented in this encounter [facility] 09-06-2024 Telephone encounter Note Please place order for test. Pt will be coming in at 3:[address] [facility] 09-06-2024 Telephone encounter Note Pt aware and wants to come in for test but wants to stay on lo loestrin Audra Dunn [facility] 09-06-2024 Miscellaneous Notes Pt aware and wants to come in for test but wants to stay on lo loestrin Audra Dunn Her pack is 24/4 so starting her pills 3d late is still within the 7d hormone free interval. She is on a 1/20 pill, so periods can be light and short. Does she want a blood test? Does she want a higher dose pill to give her more of a withdrawal bleed. This is not worrisome. Jason Borja MD Pt states she was supposed to start period 08/27/24 and did not have a period. Pt denies missing any pills or any recent antibiotic or steroid use. Pt has taken 3 home tests which were negative.Pt started new pack on 09/03/24 and was supposed to start it 08/31/24. Pt does not want ot come in if she doesn't have to .I did schedule her for Wednesday. Audra Dunn documented in this encounter [facility] 09-06-2024 Telephone encounter Note Her pack is 24/4 so starting her pills 3d late is still within the 7d hormone free interval. She is on a 1/20 pill, so periods can be light and short. Does she want a blood test? Does she want a higher dose pill to give her more of a withdrawal bleed. This is not worrisome. Jason Borja MD [facility] 09-04-2024 Telephone encounter Note Pt states she was supposed to start period 08/27/24 and did not have a period. Pt denies missing any pills or any recent antibiotic or steroid use. Pt has taken 3 home tests which were negative.Pt started new pack on 09/03/24 and was supposed to start it 08/31/24. Pt does not want ot come in if she doesn't have to .I did schedule her for Wednesday. Audra Dunn [facility] 08-21-2024 History of Present illness Narrative SUBJECTIVE Gely Hicks is a 24 year old woman who presents for her annual exam: Last pap 05/15, Patient's last menstrual period was 07/26/2024 (exact date).. States last period was very light and she is requesting a test. Concern about wt gain. Medications, Allergies, Surgeries, Family History updated and smoking status updated. Discussed health maintenance, including regular aerobic exercise, low fat diet, and periodic exams. HISTORIES FAMILY HISTORY Problem Relation Age of Onset other (Uterine fibroid-hysterectomy) Mother BRCA negative Ovarian cancer Maternal Grandmother 61 PAST MEDICAL HISTORY Diagnosis Date Abnormal Pap smear of cervix 02/2021 ascus/+HPV 04/13 LSIL 05/15 LSIL Chlamydia 01/2020 Dysmenorrhea Family history of ovarian cancer pt's mother tested negative BRCA Genital herpes vulvar outbreak of HSV1 Hepatitis C 10/2023 Irregular menses PAST SURGICAL HISTORY Procedure Laterality Date EXTRACTION, ERUPTED TOOTH OR EXPOSED ROOT (ELEVATION AND/OR FORCEPS REMOVAL) ACTIVE PROBLEM LIST Hepatitis C ALLERGIES No Known Allergies Current Outpatient Medications Medication Sig norethindrone-e.estradiol-iron (BREONNA 24 FE) 1 mg-20 mcg(24) /75 mg (4) TAKE 1 TABLET BY MOUTH EVERY DAY valACYclovir (VALTREX) 500 mg tablet TAKE 1 TABLET BY MOUTH EVERY DAY cephALEXin (KEFLEX) 500 mg capsule NEOMYCIN 3.5 MG/G-POLYMYXIN B 10,000 UNIT/G-DEXAMETH 0.1 % EYE OINT valACYclovir (VALTREX) 500 mg tablet take 2 tablets by mouth every 12 hours (Patient not taking: Reported on 08/13/2023) No current facility-administered medications for this visit. 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 HEENT: Within normal limits NECK: Supple, no thyromegaly BREASTS: No masses, no nipple discharge HEART: Regular rate and rhythm without murmur, rub, or gallop LUNGS: Clear bilaterally to auscultation ABDOMEN: No masses, non tender, no hernias, no hepatosplenomegaly PELVIC: EGBUS: No lesions, normal appearance VAGINA: No discharge, no blood, no lesions CERVIX: No lesions, non tender UTERUS: Anteverted, normal size, non tender ADNEXA: Non tender, no masses RECTOVAGINAL: Not examined EXTREMITIES: No edema, no calf tenderness NEUROLOGICAL: Grossly intact ASSESSMENT/PLAN: 1. Gynecologic exam normal - ICD9: V72.31, ICD10: Z01.419 (primary diagnosis) - Completed pelvic and breast exam - Encouraged monthly BSE - Follow up for annual exam in one year. 2. Cervical cancer screening - ICD9: V76.2, ICD10: Z12.4 - PAP REFLEX HPV MRNA WHEN ASCUS 3. Genital herpes simplex, unspecified site - ICD9: 054.10, ICD10: A60.00 - VALACYCLOVIR 500 MG TABLET 4. Encounter for initial prescription of contraceptive pills - ICD9: V25.01, ICD10: Z30.011 - NORETHINDRONE 1 MG-E. ESTRADIOL 20 MCG (24)-IRON 75 MG (4) CHEW TABLET 5. Exposure to sexually transmitted disease (STD) - ICD9: V01.6, ICD10: Z20.2 - CHLAMYDIA/N.GONORRHOEAE,T.VAGINALI S,RNA,QL,TMA,PAP VIAL - HERPES SIMPLEX TYPE 1 AND 2 IG - HIV 1/2 COMBO WITH REFLEX TO DIFFERENTIATION - SYPHILIS ANTIBODY CASCADING REFLEX - HEPATITIS B SURFACE ANTIGEN 6. Malaise and fatigue - ICD9: 780.79, ICD10: R53.81, R53.83 - THYROID STIMULATING HORMONE - THYROID PEROXIDASE ANTIBODY - T3, FREE - T4 FREE/FREE THYROXINE - COMPLETE BLOOD COUNT AND DIFFERENTIAL - COMPREHENSIVE METABOLIC PANEL MD Megan Aguilar documented in this encounter [facility] 07-27-2024 Telephone encounter Note Pt is overdue for annual but is scheduled for this month; sent last refill. Denia Villa PA-C [facility] 07-27-2024 Miscellaneous Notes Pt is overdue for annual but is scheduled for this month; sent last refill. Denia Villa PA-C documented in this encounter [facility] 06-22-2024 Telephone encounter Note Pt is overdue for annual but is scheduled for July. Sent last refill. Denia Villa PA-C [facility] 06-22-2024 Miscellaneous Notes Pt is overdue for annual but is scheduled for July. Sent last refill. Denia Villa PA-C documented in this encounter [facility] 12-01-2023 Miscellaneous Notes Letter written. Denia Villa PA-C Pt called and the GI MD you wanted her to see isn't taking pt's until 02/[address] Walsh who can see her sooner. Could you please write him a letter and I will fax that and labs ( which I already printed) to [phone]. Audra Dunn documented in this encounter [facility] 11-22-2023 Miscellaneous Notes Pt is informed and will call to schedule. Rachael Marsahll MA Letter sent to Dr. Ba at [facility] [address] in [place]. Please give info: [facility] [address] [place], [place] [address] Pt called back and was given her results. Pt would like a referral she has never been to a GI before. Rachael Marshall MA Left message for pt to call the office. Rachael Marshall MA ----- Message from Denia Villa PA-C sent at 11/22/2023 12:43 PM EDT ----- Positive Hepatitis C. Pt needs to f/u with GI for treatment; can write a letter for wherever she wants to go. Your remaining STD panel was negative (Hepatitis B, HIV, syphilis, and HSV2 (usually genital herpes). Denia Villa PA-C documented in this encounter [facility] 08-26-2023 Emergency department Note ACC RN spoke with pt. Regarding her Audit C score of 5: pt. Drinks 4-5 times weekly, drinks 3-4 drinks per episode & pt. Drinks more than 6 drinks per episode monthly. Pt. Reports she has been counseling @ [facility] in [place] for 6 weeks. Pt. Declined assessment & referral assistance for additional tx. Pt. 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 Options in the community or [facility]. Pt. Accepted [place] [facility] info.. John Fernandez RN 08/26/23 1421 [facility] 08-26-2023 Emergency department Note ACC RN spoke with pt. Regarding her Audit C score of 5: pt. Drinks 4-5 times weekly, drinks 3-4 drinks per episode & pt. Drinks more than 6 drinks per episode monthly. Pt. Reports she has been counseling @ [facility] in [place] for 6 weeks. Pt. Declined assessment & referral assistance for additional tx. Pt. 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 Options in the community or [facility]. Pt. Accepted [place] [facility] info.. John Fernandez RN 08/26/23 1421 This RN went to place IV, draw labs, and medicate pt, pt states she does not want IV or IV medications due to her having to leave at 3pm, states she just wants bloodwork. Dr fernandez notified and aware. Sharon Merrill RN 08/26/23 1401 Below are additional resources that you may find beneficial in your treatment: 12-Step: Alcohol Anonymous: [place] Anon: [phone]: 12-step program for families & friends of people with addiction. CRISIS: Homeless Hotline: 242.789.5976 Domestic Violence help line anytime: 905.145.2142 Crisis Hotline: 303.956.2566 [facility] Addiction Helpline: 517.873.6194 (available 8:30 AM to 4:00 PM ) 09-23- 21 helps people across [facility] find local resources when they don't know where to turn for help. We are available 24 hours a day, 7 days a week. For help, simply dial to speak to one of our trained professionals. DETOX TREATMENT: [facility] Crisis Center: anytime @ 107.907.5084 for alcohol & drug addiction help. [facility] coordination: [phone] (Medicare not accepted) [facility] [place]: [phone] ([place] Medicaid not accepted) [facility] [place]: [phone] ([place] Medicaid not accepted) [facility] [place]: [phone] [facility] [place]: [phone] [place]: [phone], [facility] [place]: [phone] [place], [place] [phone] [facility] [place] [facility] [place]: [phone] [facility], [place], [place] [phone] ext. [phone] [place], [place] (pt. must be medically cleared prior to admission in ED) [facility] [place]: [phone] ([place] Medicaid not accepted) [facility], [place], [place] [phone] OUTPATIENT TREATMENT: [facility] @ [place], [place] [phone]. 1st Step MAT Program @ [facility] ED: [phone] 1st Step MAT Program @ [facility] ED: [phone] 1st Step MAT Program @ [facility] ED: [phone] Intensive Outpatient Programs- [place], [place] [phone] [place], [place] [phone] [facility] [place], [place] [phone] [facility] [place], [place] [phone] [facility] Addiction Treatment: [place], [place] [phone] or [phone]. [facility]: [phone] [facility], [place]: [phone], [place]: [phone] [facility] [place]: [phone] [facility], [place]: [phone], [place]: [phone] [facility] [place]: [phone] [facility], [place], [place] [phone] [facility] SERVICES: [place], [place] [phone] [facility] [place], [place] [phone] [facility] [phone] RESIDENTIAL TREATMENT FACILITIES: [place], [place] [phone] (admission coordinated by ADM Grant Mckenna ext [phone]) [facility] [place]: [phone]; Men's services inpt. & women services - Outpt. [place], [place] [phone] [address] [place], [place] [phone] [place], [place] [phone] [facility] [place], [place] [phone] [facility] - [place], [place] [phone] OTHER SERVICES: [employer] [facility] [employer] Service: [phone] [facility]: [phone] ext. [phone] Medicaid Health Coverage: [facility]. S: [phone] John Fernandez RN 08/26/23 1352 John Fernandez RN 08/26/23 1406 Images from the original note were not included. What Are the Effects of Alcohol on the Body? Short-term Long-term Physical Psychological Risk factors Finding support Safety Alcohol can cause both short-term effects, such as lowered inhibitions, and long-term effects, including a weakened immune system. You won't necessarily feel alcohol's impact on your body right away, but it starts from the moment you take your first sip. If you drink, you've probably had some experience with alcohol's effects, from the warm buzz that kicks in quickly to the [id number]-yrojitka wine headache, or the hangover that shows up the next morning. Since those effects don't last long, you might not worry much about them, especially if you don't drink often. Many people assume the occasional beer or glass of wine at mealtimes or special occasions doesn't pose much cause for concern. But drinking any amount of alcohol can potentially lead to unwanted health consequences. People who binge drink or drink heavily may notice more health effects sooner, but alcohol also poses some risks for people who drink in moderation. What does it mean to drink in moderation? Current guidelines from the Centers for Disease Control and Prevention (CDC)Trusted Source define moderate drinking as: 1 or fewer drinks each day for women 2 or fewer drinks each day for men Past guidance around alcohol use generally suggests a daily drink poses little risk of negative health effects -- and might even offer a few health benefits. But more recent research suggests there's really no safe amount of alcohol since even moderate drinking can negatively impact brain health. Was this helpful? Alcohol use can begin to take a toll on anyone's physical and mental well-being over time. These effects may be more serious and more noticeable if you drink regularly and tend to have more than 1 or 2 drinks when you do. Read on to get the details on how alcohol can affect your body, brain, and emotional health, plus a few tips on finding support if you're considering cutting back on drinking. Short-term effects of alcohol Temporary effects you might notice while drinking alcohol (or shortly after) can include: feelings of relaxation or drowsiness a sense of euphoria or giddiness changes in mood lowered inhibitions impulsive behavior slowed or slurred speech nausea and vomiting diarrhea head pain changes in hearing, vision, and perception loss of coordination trouble focusing or making decisions loss of consciousness or gaps in memory (often called a blackout) Some of these effects, like a relaxed mood or lowered inhibitions, might show up quickly after just one drink. Others, like loss of consciousness or slurred speech, may develop after a few drinks. Dehydration-related effects, like nausea, headache, and dizziness, might not appear for a few hours, and they can also depend on what you drink, how much you drink, and if you also drink water. These effects might not last very long, but that doesn't make them insignificant. Impulsiveness, loss of coordination, and changes in mood can affect your judgment and behavior and contribute to more far-reaching effects, including accidents, injuries, and decisions you later regret. Long-term effects of alcohol Alcohol use can also lead to more lasting concerns that extend beyond your own mood and health. Some long-term effects of frequently drinking alcohol can include: persistent changes in mood, including anxiety and irritability insomnia and other sleep concerns a weakened immune system, meaning you might get sick more often changes in libido and sexual function changes in appetite and weight problems with memory and concentration difficulty focusing on tasks increased tension and conflict in romantic and family relationships Alcohol's physical effects on the body Here's a breakdown of alcohol's effects on your internal organs and body processes. Digestive and endocrine glands Drinking too much alcohol over time may cause inflammation of the pancreas, resulting in pancreatitis. Pancreatitis can activate the release of pancreatic digestive enzymes and cause abdominal pain. Pancreatitis can become a long-term condition and cause serious complications. Inflammatory damage Your liver helps break down and remove toxins and harmful substances (including alcohol) from your body. Long-term alcohol use interferes with this process. It also increases your risk for alcohol-related liver disease and chronic liver inflammation: Alcohol-related liver disease is a potentially life threatening condition that leads to toxins and waste buildup in your body. Chronic liver inflammation can cause scarring, or cirrhosis. When scar tissue forms, it may permanently damage your liver. Sugar levels The pancreas helps regulate how your body uses insulin and responds to glucose. If your pancreas and liver don't function properly due to pancreatitis or liver disease, you could experience low blood sugar, or hypoglycemia. A damaged pancreas can also prevent your body from producing enough insulin to use sugar. This can lead to hyperglycemia, or too much sugar in the blood. If your body can't manage and balance your blood sugar levels, you may experience greater complications and side effects related to diabetes. Experts recommend avoiding excessive amounts of alcohol if you have diabetes or hypoglycemia. Central nervous system One major way to recognize alcohol's impact on your body? Understanding how it affects your central nervous system. Slurred speech, a pacheco sign of intoxication, happens because alcohol reduces communication between your brain and body. This makes speech and coordination -- think reaction time and balance -- more difficult. That's one major reason why you should never drive after drinking. Over time, alcohol can cause damage to your central nervous system. You might notice numbness and tingling in your feet and hands. Drinking can also affect your ability to: create long-term memories think clearly make rational choices regulate your emotions Over time, drinking can also damage your frontal lobe, the part of the brain responsible for executive functions, like abstract reasoning, decision making, social behavior, and performance. Chronic heavy drinking can also cause permanent brain damage, including Wernicke-Korsakoff syndrome, a brain disorder that affects memory. Digestive system The connection between alcohol consumption and your digestive system might not seem immediately clear. The side effects often only appear after the damage has happened. Continuing to drink can worsen these symptoms. Drinking can damage the tissues in your digestive tract, preventing your intestines from digesting food and absorbing nutrients and vitamins properly. In time, this damage can cause malnutrition. Heavy drinking can also lead to: gas bloating feeling of fullness in your abdomen diarrhea or painful stools ulcers or hemorrhoids (due to dehydration and constipation) Ulcers can cause dangerous internal bleeding, which can sometimes be fatal without prompt diagnosis and treatment. Circulatory system Chronic drinking can affect your heart and lungs, raising your risk of developing heart-related health issues. Circulatory system complications include: high blood pressure irregular heartbeat difficulty pumping blood through the body stroke heart attack heart disease heart failure Difficulty absorbing vitamins and minerals from food can cause fatigue and anemia, a condition where you have a low red blood cell count. Sexual and reproductive health Drinking alcohol can lower your inhibitions, so you might assume alcohol can ramp up your fun in the bedroom. In reality, though, heavy drinking can: prevent sex hormone production lower your libido keep you from getting or maintaining an erection make it difficult to achieve orgasm Excessive drinking may affect your menstrual cycle and potentially increase your risk for infertility. Alcohol use during No amountTrusted Source of alcohol is considered safe for people. That's because drinking during doesn't just affect your health. It can lead to miscarriage, stillbirth, or premature delivery. Children exposed to alcohol in the womb may experience a range of complications after , including: learning difficulties long-term health issues increased emotional problems developmental concerns Was this helpful? Skeletal and muscle systems Long-term alcohol use can affect bone density, leading to thinner bones and increasing your risk of fractures if you fall. Weakened bones may also heal slower. Drinking alcohol can also lead to muscle weakness, cramping, and eventually atrophy. Immune system Drinking heavily reduces your body's natural immune system. A weakened immune system has a harder time protecting you from germs and viruses. People who drink heavily over a long period of time are also more likely to develop pneumonia or tuberculosis than the general population. The World Health Organization (WHO) links about 8.1 percentTrusted Source of all tuberculosis cases worldwide to alcohol consumption. Drinking alcohol can also factor intoTrusted Source your cancer risk: Frequent drinking can increase your risk of developing mouth, throat, breast, esophagus, colon, or liver cancer. Drinking and using tobacco together can further increase your riskTrusted Source of developing mouth or throat cancer. Psychological effects Long-term alcohol use can lead to changes in your brain that can affect your: memory and concentration impulse control emotions, mood, and personality Regular drinking can also affect overall mental health and well-being, in part because alcohol may worsen symptoms of certain mental health conditions, including anxiety, depression, and bipolar disorder. You might also notice feelings of anxiety with a hangover. Alcohol-induced mental health conditions Alcohol use can factor into mental health symptoms that closely resemble those of other mental health conditions. The latest edition of The Diagnostic and Statistical Manual of Mental Disorders (DSM-5), which mental health professionals use to diagnose mental health conditions, includes diagnostic criteria for: alcohol-induced bipolar disorder alcohol-induced psychotic disorder alcohol-induced sleep disorder alcohol-induced depressive disorder alcohol-induced anxiety disorder With these conditions, you'll only notice symptoms during alcohol intoxication or withdrawal. These symptoms typically improve quickly when alcohol use stops. Dependence Some people who drink eventually develop a tolerance to alcohol. As a result, they eventually need to drink more to notice the same effects they once did. Drinking alcohol on a regular basis can also lead to dependence, which means your body and brain have grown used to alcohol's effects. When you stop drinking, you might notice a range of physical, emotional, or mental health symptoms that ease as soon as you have a drink. Tolerance and dependence can both happen as symptoms of alcohol use disorder, a mental health condition previously referred to as alcoholism, that happens when your body becomes dependent on alcohol. This condition can be mild, moderate, or severe, depending on the number of symptoms you have. Pacheco symptoms may include: cravings withdrawal drinking more over time having difficulty stopping after one drink inability to stop drinking when you try continuing to drink alcohol even when it has a negative impact on your health or daily life spending a lot of time on activities related to alcohol use Learn more about the signs of alcohol use disorder. Alcohol withdrawal Alcohol withdrawal can be difficult and, in some cases, life threatening. Depending on how often you drink and how much, you may need support from a healthcare professional if you want to stop drinking. It's always best to connect with your doctor before quitting alcohol. The cold turkey approach might not always be safe. Symptoms of alcohol withdrawal include: anxiety nervousness nausea tremors high blood pressure irregular heartbeat heavy sweating Seizures, hallucinations, and delirium may occur in severe cases of withdrawal. Medical detoxification can help you stop drinking safely. Your doctor may recommend treatment at a clinic or at home, depending on your risk for withdrawal symptoms. Risk factors for alcohol use disorder Certain factors may increase your chances of experiencing alcohol use disorder. Some of these include: heavy drinking binge drinking ongoing stress having peers or family members who drink a lot of alcohol having genes that affect your sensitivity to alcohol having anxiety, depression, schizophrenia, or another mental health condition having a close relative, especially a parent, with the condition Finding treatment for alcohol use disorder Thinking about cutting back on alcohol or quitting drinking completely? You have plenty of options for support and treatment: free recovery support groups, like Alcoholics Anonymous or [facility] online recovery platforms, like [facility] to help address reasons for drinking and learn helpful coping skills medical treatment to address symptoms of alcohol use disorder and any related health concerns medications that can help reduce cravings Looking for mental health support near you? Here's how to find a therapist. The Substance Abuse and Mental Health Services Administration offers a free helpline, available 15/03. Call 218-606-YSCI (2490) or [facility] to get guidance on local options for support and treatment. Alcohol safety tips There's no entirely safe way to consume alcohol, but if you choose to drink, these tips can help reduce some risks: Make sure you eat. Avoid drinking on an empty stomach to avoid becoming intoxicated too fast. Drink plenty of water. For every standard drink you consume, aim to have a glass of water. Don't go too fast. Drink slowly to give your body plenty of time to process the alcohol. Your liver can process about 1 ounce of alcohol every hour. Don't mix with other substances. Mixing alcohol with caffeine can hide the depressant effects of alcohol, making you drink more than you might otherwise. Drinking coffee to sober up may make you feel more awake, but it may also make you more inclined to make the mistake of trying to drive while under the influence. Combining alcohol with other drugs can also have adverse effects. Don't drink and drive. Never drive while intoxicated. Even if you feel like you've sobered up, you may still have alcohol in your system that can affect your reaction time. Last medically reviewed on November 20, 2021 Nov 20, 2021 Medically Reviewed By Afua Duran MD, FAAFP Medically reviewed by Afua Duran MD, FAAFP -- By Suzy Causey and Aminta Dickey -- Updated on October 08, 2022 John Fernandez RN 08/26/23 1357 Report given to to Sharon Tracey RN 08/26/23 1306 EMERGENCY DEPARTMENT ENCOUNTER Pt Name: Gely Hicks Birthdate 2000 Date of evaluation: 08/26/2023 ED Provider: Tim Fernandez DO CHIEF COMPLAINT Chief Complaint Patient presents with Rash Pt presents to ED with c/o red rash to bilateral knees. States now the rash has disappeared. States that it was painful. Bilateral knees remain in pain. Now is experiencing some splotching to her bilateral upper extremities. Reports that she did just use new body soap last night in shower. HISTORY OF PRESENT ILLNESS (Location/Symptom, Timing/Onset, Context/Setting, Quality, Duration, Modifying Factors, Severity) Note limiting factors. I wore appropriate PPE for the entirety of this encounter. HPI Gely Hicks is a 23 y.o. female who presents to the emergency department blotchy erythematous rash which started on her knees yesterday after using a new soap. Rash to her lower extremities resolved. Then developed erythema in the upper extremities. States she has pain throughout her knees. No fevers but has had chills. No other chest pain shortness of breath abdominal pain nausea vomiting weakness or numbness. States the pain is an achy pain. No other past medical history other than anxiety. States she may be . Nursing Notes were reviewed. REVIEW OF SYSTEMS 14 systems reviewed and otherwise acutely negative except as in the [place]. PAST MEDICAL HISTORY Past Medical History: Diagnosis Date Anxiety SURGICAL HISTORY Past Surgical History: Procedure Laterality Date WISDOM TOOTH EXTRACTION CURRENT MEDICATIONS Discharge Medication List as of 08/26/2023 2:44 PM CONTINUE these medications which have NOT CHANGED Details Multiple Vitamins-Minerals (multivitamin with minerals) tablet Take 1 tablet by mouth daily., Historical Med ALLERGIES Patient has no known allergies. FAMILY HISTORY No family history on file. SOCIAL HISTORY Social History Socioeconomic History Marital status: Single Tobacco Use Smoking status: Former Types: Cigarettes Smokeless tobacco: Never Vaping Use Vaping Use: Every day Substances: Nicotine Substance and Sexual Activity Alcohol use: Yes Alcohol/week: 15.0 standard drinks of alcohol Types: 15 Standard drinks or equivalent per week Drug use: Not Currently SCREENINGS PHYSICAL EXAM ED Triage Vitals [08/26/23 1211] Temp Heart Rate Resp BP 36.4 C (97.5 F) (!) 115 18 (!) 156/107 SpO2 Temp Source Heart Rate Source Patient Position 96 % Temporal Monitor -- BP Location FiO2 (%) -- -- CONSTITUTIONAL: AOx4, no apparent distress, appears stated age HEAD: normocephalic, atraumatic EYES: PERRL, EOMI ENT: moist mucous membranes, uvula midline NECK: supple, symmetric BACK: symmetric LUNGS: clear to auscultation bilaterally CARDIOVASCULAR: regular rate and rhythm, no murmurs, rubs or gallops ABDOMEN: soft, non-tender, non-distended with normal active bowel sounds : deferred NEUROLOGIC: MAEx4, no focal sensory or motor deficits MUSCULOSKELETAL: no clubbing, cyanosis or edema SKIN: no exposed rash DIAGNOSTIC RESULTS Procedures/EKG: EKG was reviewed by myself. Physician EKG interpretation can be found in [facility] RADIOLOGY (Per Emergency Physician): Interpretation per the Radiologist below, if available at the time of this note: No orders to display ED BEDSIDE ULTRASOUND: Performed by ED Physician - none LABS: Labs Reviewed CBC WITH AUTO DIFFERENTIAL - Abnormal Result Value Auto WBC 3.3 (*) RBC 4.27 Hemoglobin 14.0 Hematocrit 41.4 MCV 97.0 MCH 32.8 MCHC 33.8 RDW 12.2 Platelets 460 (*) MPV 6.2 (*) nRBC 0.1 Neutrophils Relative 39.5 (*) Lymphocytes Relative 52.4 (*) Monocytes Relative 6.5 Eosinophils Relative 0.4 (*) Basophils Relative 1.2 Neutrophils Absolute 1.3 (*) Lymphocytes Absolute 1.8 Monocytes Absolute 0.2 Eosinophils Absolute 0.0 Basophils Absolute 0.0 BASIC METABOLIC PANEL - Abnormal SODIUM 144 POTASSIUM 4.4 CHLORIDE 104 CARBON DIOXIDE 27 UREA NITROGEN 7 CREATININE 0.48 (*) GLUCOSE 100 CALCIUM 9.6 ANION GAP 13 eGFR >90.0 COMPLETE URINALYSIS - Abnormal Color, Urine Colorless Clarity, Urine Clear pH, Urine 5.5 Leukocytes, Urine Negative Nitrite, Urine Negative Protein, Urine Negative Glucose, Urine Normal Bilirubin, Urine Negative Ketones, Urine Negative Urobilinogen, Urine Normal Blood, Urine Negative SPECIFIC GRAVITY OF URINE (NUMERIC) 1.004 (*) HCG QUALITATIVE URINE HCG,URINE QUAL Negative Narrative: is the most common reason for HCG in urine, although choriocarcinoma, hydatidiform mole, and certain nontrophoblastic malignancies also result in detectable urinary HCG levels. Sensitivity = 20mIU/mL. COMPLETE URINALYSIS WITH REFLEX TO CULTURE Narrative: The following orders were created for panel order Complete Urinalysis with reflex to Culture. Procedure Abnormality Status --------- ------ Complete Urinalysis[[id number]] Abnormal Final result Please view results for these tests on the individual orders. All other labs were within normal range or not returned as of this dictation. EMERGENCY DEPARTMENT COURSE and DIFFERENTIAL DIAGNOSIS/MDM: Vitals: Vitals: 08/26/23 1211 08/26/23 1213 08/26/23 1449 BP: (!) 156/107 110/75 Pulse: (!) 115 109 Resp: 18 16 Temp: 36.4 C (97.5 F) TempSrc: Temporal SpO2: 96% 96% 100% EMERGENCY DEPARTMENT COURSE and DIFFERENTIAL DIAGNOSIS/MDM: Vitals: Vitals: 08/26/23 1211 08/26/23 1213 08/26/23 1449 BP: (!) 156/107 110/75 Pulse: (!) 115 109 Resp: 18 16 Temp: 36.4 C (97.5 F) TempSrc: Temporal SpO2: 96% 96% 100% The patient presented with a chief complaint of rash that she developed last night mainly throughout her knees. Rashes is gone but as well as some persistent achy pain throughout her knees. Also states some redness throughout her arms. No fevers but has had chills. Abdomen started after using a new soap last night. The differential diagnosis associated with this patient's presentation includes contact dermatitis, viral rash, autoimmune. Our workup consisted of ordering/reviewing basic lab work which shows slight leukopenia. The rest of the lab work was benign. Urine was negative. Trial the patient on steroids for her persistent achy pain. No edema throughout the joints. Full range of motion throughout the joint. No fever, low suspicion for septic arthritis or acute bacterial infection at this time. No vaginal bleeding or discharge or concerns for STDs. Low suspicion for gonococcal arthritis. Plan was initially to give IV steroids Benadryl and fluids for tachycardia however the patient refused IV. Was amenable to blood work which was performed. Patient given oral prednisone here versus going emergency room. All questions answered but okay be discharged.. Diagnoses as of 08/26/23 1527 Rash and other nonspecific skin eruption Diagnostic tests considered but not performed: External records reviewed: none Diagnostics interpreted by me: none Discussions with other clinicians: none Chronic conditions impacting care: Anxiety Social determinants of health affecting care: none ED Medications managed: Medications predniSONE (Deltasone) tablet 40 mg (40 mg Oral Given 08/26/23 6556) CONSULTS: None PROCEDURES: Unless otherwise noted below, none Procedures Patients symptoms are consistent with sepsis, severe sepsis, or septic shock (If yes use .sepsiscoremeasure): FINAL IMPRESSION 1. Rash and other nonspecific skin eruption DISPOSITION/PLAN dc PATIENT REFERRED TO: [facility] [address] [facility] [id number] [facility] [address] [facility] [address] DISCHARGE MEDICATIONS: Discharge Medication List as of 08/26/2023 2:44 PM START taking these medications Details predniSONE (Deltasone) 10 MG tablet Multiple Dosages:Starting Gail 08/26/2023, Until 08/28/2023, THEN Starting 08/29/2023, Until 08/31/2023, THEN Starting 09/01/2023, Until 09/03/2023, THEN Starting 09/04/2023, Until 09/06/2023Take 4 tablets (40 mg) by mouth daily for 3 days, THEN 3 tablets (30 mg) daily for 3 days, THEN 2 tablets (20 mg) daily for 3 days, THEN 1 tablet (10 mg) daily for 3 days., Print (Comment: Please note this report has been produced using speech recognition software and may contain errors related to that system including errors in grammar, punctuation, and spelling, as well as words and phrases that may be inappropriate. If there are any questions or concerns please feel free to contact the dictating provider for clarification.) Tim Fernandez DO (electronically signed) Emergency Medicine Provider Tim Fernandez DO 08/26/23 1529 documented in this encounter [facility] 08-26-2023 Emergency department Note This RN went to place IV, draw labs, and medicate pt, pt states she does not want IV or IV medications due to her having to leave at 3pm, states she just wants bloodwork. Dr fernandez notified and aware. Sharon Merrill RN 08/26/23 7798 [facility] 08-26-2023 Emergency department Note Below are additional resources that you may find beneficial in your treatment: 12-Step: Alcohol Anonymous: [facility] Anon: 620.577.8128: 12-step program for families & friends of people with addiction. CRISIS: Homeless Hotline: 728.179.7114 Domestic Violence help line anytime: 347.228.2281 Crisis Hotline: 15/03- 399.896.9534 [facility] Addiction Helpline: 530.671.2864 (available 8:30 AM to 4:00 PM ) 09-23- 2-1 helps people across [facility] find local resources when they don't know where to turn for help. We are available 24 hours a day, 7 days a week. For help, simply dial to speak to one of our trained professionals. DETOX TREATMENT: [facility]: anytime @ 848.175.6289 for alcohol & drug addiction help. [facility] coordination: [phone] (Medicare not accepted) [facility] [place]: [phone] ([place] Medicaid not accepted) [facility] [place]: [phone] ([place] not accepted) [facility] [place]: [phone] [facility] [place]: [phone] [place], [place]: [phone], [facility] [place]: [phone] [place], [place] [phone] [facility] [place] [facility] [place]: [phone] [facility], [place], [place] [phone] ext. [phone] [place], [place] (pt. must be medically cleared prior to admission in ED) [facility] [place]: [phone] ([place] Medicaid not accepted) [facility], [place], [place] [phone] OUTPATIENT TREATMENT: [facility] @ [place], [place] [phone]. 1st Step MAT Program @ [facility] ED: [phone] 1st Step MAT Program @ [facility] ED: [phone] 1st Step MAT Program @ [facility] ED: [phone] Intensive Outpatient Programs- [facility] [place], [place] [phone] [place], [place] [phone] [place], [place] [phone] [facility] [place], [place] [phone] [facility]: [place], [place] [phone] or [phone]. [facility]: [phone] [facility], [place]: [phone], [place]: [phone] [facility], [place]: [phone] [facility], [place]: [phone], [place]: [phone] [facility] [place]. [place]: [phone] [facility], [place], [place] [phone] [facility]: [place], [place] [phone] [place] [phone] [facility] [phone] RESIDENTIAL TREATMENT FACILITIES: [place], [place] [phone] (admission coordinated by ADM Grant Mckenna ext [phone]) [place], [place]: [phone]; Men's services inpt. & women services - Outpt. [place], [place] [phone] [facility] [address] [place], [place] [phone] [place], [place] [phone] [facility] [place], [place] [phone] [facility] - [place], [place] [phone] OTHER SERVICES: [employer] [facility] [employer] [facility]: [phone] [facility]: [phone] ext. [phone] Medicaid Health Coverage: [facility] JFS: [phone] John Fernandez RN 08/26/23 5034 John Fernandez RN 08/26/23 1409 [facility] 08-26-2023 Emergency department Note Images from the original note were not included. What Are the Effects of Alcohol on the Body? Short-term Long-term Physical Psychological Risk factors Finding support Safety Alcohol can cause both short-term effects, such as lowered inhibitions, and long-term effects, including a weakened immune system. You won't necessarily feel alcohol's impact on your body right away, but it starts from the moment you take your first sip. If you drink, you've probably had some experience with alcohol's effects, from the warm buzz that kicks in quickly to the [id number] wine headache, or the hangover that shows up the next morning. Since those effects don't last long, you might not worry much about them, especially if you don't drink often. Many people assume the occasional beer or glass of wine at mealtimes or special occasions doesn't pose much cause for concern. But drinking any amount of alcohol can potentially lead to unwanted health consequences. People who binge drink or drink heavily may notice more health effects sooner, but alcohol also poses some risks for people who drink in moderation. What does it mean to drink in moderation? Current guidelines from the Centers for Disease Control and Prevention (CDC)Trusted Source define moderate drinking as: 1 or fewer drinks each day for women 2 or fewer drinks each day for men Past guidance around alcohol use generally suggests a daily drink poses little risk of negative health effects -- and might even offer a few health benefits. But more recent research suggests there's really no safe amount of alcohol since even moderate drinking can negatively impact brain health. Was this helpful? Alcohol use can begin to take a toll on anyone's physical and mental well-being over time. These effects may be more serious and more noticeable if you drink regularly and tend to have more than 1 or 2 drinks when you do. Read on to get the details on how alcohol can affect your body, brain, and emotional health, plus a few tips on finding support if you're considering cutting back on drinking. Short-term effects of alcohol Temporary effects you might notice while drinking alcohol (or shortly after) can include: feelings of relaxation or drowsiness a sense of euphoria or giddiness changes in mood lowered inhibitions impulsive behavior slowed or slurred speech nausea and vomiting diarrhea head pain changes in hearing, vision, and perception loss of coordination trouble focusing or making decisions loss of consciousness or gaps in memory (often called a blackout) Some of these effects, like a relaxed mood or lowered inhibitions, might show up quickly after just one drink. Others, like loss of consciousness or slurred speech, may develop after a few drinks. Dehydration-related effects, like nausea, headache, and dizziness, might not appear for a few hours, and they can also depend on what you drink, how much you drink, and if you also drink water. These effects might not last very long, but that doesn't make them insignificant. Impulsiveness, loss of coordination, and changes in mood can affect your judgment and behavior and contribute to more far-reaching effects, including accidents, injuries, and decisions you later regret. Long-term effects of alcohol Alcohol use can also lead to more lasting concerns that extend beyond your own mood and health. Some long-term effects of frequently drinking alcohol can include: persistent changes in mood, including anxiety and irritability insomnia and other sleep concerns a weakened immune system, meaning you might get sick more often changes in libido and sexual function changes in appetite and weight problems with memory and concentration difficulty focusing on tasks increased tension and conflict in romantic and family relationships Alcohol's physical effects on the body Here's a breakdown of alcohol's effects on your internal organs and body processes. Digestive and endocrine glands Drinking too much alcohol over time may cause inflammation of the pancreas, resulting in pancreatitis. Pancreatitis can activate the release of pancreatic digestive enzymes and cause abdominal pain. Pancreatitis can become a long-term condition and cause serious complications. Inflammatory damage Your liver helps break down and remove toxins and harmful substances (including alcohol) from your body. Long-term alcohol use interferes with this process. It also increases your risk for alcohol-related liver disease and chronic liver inflammation: Alcohol-related liver disease is a potentially life threatening condition that leads to toxins and waste buildup in your body. Chronic liver inflammation can cause scarring, or cirrhosis. When scar tissue forms, it may permanently damage your liver. Sugar levels The pancreas helps regulate how your body uses insulin and responds to glucose. If your pancreas and liver don't function properly due to pancreatitis or liver disease, you could experience low blood sugar, or hypoglycemia. A damaged pancreas can also prevent your body from producing enough insulin to use sugar. This can lead to hyperglycemia, or too much sugar in the blood. If your body can't manage and balance your blood sugar levels, you may experience greater complications and side effects related to diabetes. Experts recommend avoiding excessive amounts of alcohol if you have diabetes or hypoglycemia. Central nervous system One major way to recognize alcohol's impact on your body? Understanding how it affects your central nervous system. Slurred speech, a pacheco sign of intoxication, happens because alcohol reduces communication between your brain and body. This makes speech and coordination -- think reaction time and balance -- more difficult. That's one major reason why you should never drive after drinking. Over time, alcohol can cause damage to your central nervous system. You might notice numbness and tingling in your feet and hands. Drinking can also affect your ability to: create long-term memories think clearly make rational choices regulate your emotions Over time, drinking can also damage your frontal lobe, the part of the brain responsible for executive functions, like abstract reasoning, decision making, social behavior, and performance. Chronic heavy drinking can also cause permanent brain damage, including Wernicke-Korsakoff syndrome, a brain disorder that affects memory. Digestive system The connection between alcohol consumption and your digestive system might not seem immediately clear. The side effects often only appear after the damage has happened. Continuing to drink can worsen these symptoms. Drinking can damage the tissues in your digestive tract, preventing your intestines from digesting food and absorbing nutrients and vitamins properly. In time, this damage can cause malnutrition. Heavy drinking can also lead to: gas bloating feeling of fullness in your abdomen diarrhea or painful stools ulcers or hemorrhoids (due to dehydration and constipation) Ulcers can cause dangerous internal bleeding, which can sometimes be fatal without prompt diagnosis and treatment. Circulatory system Chronic drinking can affect your heart and lungs, raising your risk of developing heart-related health issues. Circulatory system complications include: high blood pressure irregular heartbeat difficulty pumping blood through the body stroke heart attack heart disease heart failure Difficulty absorbing vitamins and minerals from food can cause fatigue and anemia, a condition where you have a low red blood cell count. Sexual and reproductive health Drinking alcohol can lower your inhibitions, so you might assume alcohol can ramp up your fun in the bedroom. In reality, though, heavy drinking can: prevent sex hormone production lower your libido keep you from getting or maintaining an erection make it difficult to achieve orgasm Excessive drinking may affect your menstrual cycle and potentially increase your risk for infertility. Alcohol use during No amountTrusted Source of alcohol is considered safe for people. That's because drinking during doesn't just affect your health. It can lead to miscarriage, stillbirth, or premature delivery. Children exposed to alcohol in the womb may experience a range of complications after , including: learning difficulties long-term health issues increased emotional problems developmental concerns Was this helpful? Skeletal and muscle systems Long-term alcohol use can affect bone density, leading to thinner bones and increasing your risk of fractures if you fall. Weakened bones may also heal slower. Drinking alcohol can also lead to muscle weakness, cramping, and eventually atrophy. Immune system Drinking heavily reduces your body's natural immune system. A weakened immune system has a harder time protecting you from germs and viruses. People who drink heavily over a long period of time are also more likely to develop pneumonia or tuberculosis than the general population. The World Health Organization (WHO) links about 8.1 percentTrusted Source of all tuberculosis cases worldwide to alcohol consumption. Drinking alcohol can also factor intoTrusted Source your cancer risk: Frequent drinking can increase your risk of developing mouth, throat, breast, esophagus, colon, or liver cancer. Drinking and using tobacco together can further increase your riskTrusted Source of developing mouth or throat cancer. Psychological effects Long-term alcohol use can lead to changes in your brain that can affect your: memory and concentration impulse control emotions, mood, and personality Regular drinking can also affect overall mental health and well-being, in part because alcohol may worsen symptoms of certain mental health conditions, including anxiety, depression, and bipolar disorder. You might also notice feelings of anxiety with a hangover. Alcohol-induced mental health conditions Alcohol use can factor into mental health symptoms that closely resemble those of other mental health conditions. The latest edition of The Diagnostic and Statistical Manual of Mental Disorders (DSM-5), which mental health professionals use to diagnose mental health conditions, includes diagnostic criteria for: alcohol-induced bipolar disorder alcohol-induced psychotic disorder alcohol-induced sleep disorder alcohol-induced depressive disorder alcohol-induced anxiety disorder With these conditions, you'll only notice symptoms during alcohol intoxication or withdrawal. These symptoms typically improve quickly when alcohol use stops. Dependence Some people who drink eventually develop a tolerance to alcohol. As a result, they eventually need to drink more to notice the same effects they once did. Drinking alcohol on a regular basis can also lead to dependence, which means your body and brain have grown used to alcohol's effects. When you stop drinking, you might notice a range of physical, emotional, or mental health symptoms that ease as soon as you have a drink. Tolerance and dependence can both happen as symptoms of alcohol use disorder, a mental health condition previously referred to as alcoholism, that happens when your body becomes dependent on alcohol. This condition can be mild, moderate, or severe, depending on the number of symptoms you have. Pacheco symptoms may include: cravings withdrawal drinking more over time having difficulty stopping after one drink inability to stop drinking when you try continuing to drink alcohol even when it has a negative impact on your health or daily life spending a lot of time on activities related to alcohol use Learn more about the signs of alcohol use disorder. Alcohol withdrawal Alcohol withdrawal can be difficult and, in some cases, life threatening. Depending on how often you drink and how much, you may need support from a healthcare professional if you want to stop drinking. It's always best to connect with your doctor before quitting alcohol. The cold turkey approach might not always be safe. Symptoms of alcohol withdrawal include: anxiety nervousness nausea tremors high blood pressure irregular heartbeat heavy sweating Seizures, hallucinations, and delirium may occur in severe cases of withdrawal. Medical detoxification can help you stop drinking safely. Your doctor may recommend treatment at a clinic or at home, depending on your risk for withdrawal symptoms. Risk factors for alcohol use disorder Certain factors may increase your chances of experiencing alcohol use disorder. Some of these include: heavy drinking binge drinking ongoing stress having peers or family members who drink a lot of alcohol having genes that affect your sensitivity to alcohol having anxiety, depression, schizophrenia, or another mental health condition having a close relative, especially a parent, with the condition Finding treatment for alcohol use disorder Thinking about cutting back on alcohol or quitting drinking completely? You have plenty of options for support and treatment: free recovery support groups, like Alcoholics Anonymous or [facility] online recovery platforms, like [facility] to help address reasons for drinking and learn helpful coping skills medical treatment to address symptoms of alcohol use disorder and any related health concerns medications that can help reduce cravings Looking for mental health support near you? Here's how to find a therapist. The Substance Abuse and Mental Health Services Administration offers a free helpline, available 15/03. Call 688-297-YFNI (2994) or [facility] to get guidance on local options for support and treatment. Alcohol safety tips There's no entirely safe way to consume alcohol, but if you choose to drink, these tips can help reduce some risks: Make sure you eat. Avoid drinking on an empty stomach to avoid becoming intoxicated too fast. Drink plenty of water. For every standard drink you consume, aim to have a glass of water. Don't go too fast. Drink slowly to give your body plenty of time to process the alcohol. Your liver can process about 1 ounce of alcohol every hour. Don't mix with other substances. Mixing alcohol with caffeine can hide the depressant effects of alcohol, making you drink more than you might otherwise. Drinking coffee to sober up may make you feel more awake, but it may also make you more inclined to make the mistake of trying to drive while under the influence. Combining alcohol with other drugs can also have adverse effects. Don't drink and drive. Never drive while intoxicated. Even if you feel like you've sobered up, you may still have alcohol in your system that can affect your reaction time. Last medically reviewed on November 20, 2021 Nov 20, 2021 Medically Reviewed By Afua Duran MD, FAAFP Medically reviewed by Afua Duran MD, FAAFP -- By Suzy Causey and Aminta Dickey -- Updated on October 08, 2022 John Fernandez RN 08/26/23 1357 [facility] 08-26-2023 Emergency department Note Report given to to Sharon Tracey RN 08/26/[address] [facility] 08-26-2023 Physician Emergency department Note EMERGENCY DEPARTMENT ENCOUNTER Pt Name: Gely Hicks Birthdate 2000 Date of evaluation: 08/26/2023 ED Provider: Tim Fernandez DO CHIEF COMPLAINT Chief Complaint Patient presents with Rash Pt presents to ED with c/o red rash to bilateral knees. States now the rash has disappeared. States that it was painful. Bilateral knees remain in pain. Now is experiencing some splotching to her bilateral upper extremities. Reports that she did just use new body soap last night in shower. HISTORY OF PRESENT ILLNESS (Location/Symptom, Timing/Onset, Context/Setting, Quality, Duration, Modifying Factors, Severity) Note limiting factors. I wore appropriate PPE for the entirety of this encounter. HPI Gely Hicks is a 23 y.o. female who presents to the emergency department blotchy erythematous rash which started on her knees yesterday after using a new soap. Rash to her lower extremities resolved. Then developed erythema in the upper extremities. States she has pain throughout her knees. No fevers but has had chills. No other chest pain shortness of breath abdominal pain nausea vomiting weakness or numbness. States the pain is an achy pain. No other past medical history other than anxiety. States she may be . Nursing Notes were reviewed. REVIEW OF SYSTEMS 14 systems reviewed and otherwise acutely negative except as in the [place]. PAST MEDICAL HISTORY Past Medical History: Diagnosis Date Anxiety SURGICAL HISTORY Past Surgical History: Procedure Laterality Date WISDOM TOOTH EXTRACTION CURRENT MEDICATIONS Discharge Medication List as of 08/26/2023 2:44 PM CONTINUE these medications which have NOT CHANGED Details Multiple Vitamins-Minerals (multivitamin with minerals) tablet Take 1 tablet by mouth daily., Historical Med ALLERGIES Patient has no known allergies. FAMILY HISTORY No family history on file. SOCIAL HISTORY Social History Socioeconomic History Marital status: Single Tobacco Use Smoking status: Former Types: Cigarettes Smokeless tobacco: Never Vaping Use Vaping Use: Every day Substances: Nicotine Substance and Sexual Activity Alcohol use: Yes Alcohol/week: 15.0 standard drinks of alcohol Types: 15 Standard drinks or equivalent per week Drug use: Not Currently SCREENINGS PHYSICAL EXAM ED Triage Vitals [08/26/23 1211] Temp Heart Rate Resp BP 36.4 C (97.5 F) (!) 115 18 (!) 156/107 SpO2 Temp Source Heart Rate Source Patient Position 96 % Temporal Monitor -- BP Location FiO2 (%) -- -- CONSTITUTIONAL: AOx4, no apparent distress, appears stated age HEAD: normocephalic, atraumatic EYES: PERRL, EOMI ENT: moist mucous membranes, uvula midline NECK: supple, symmetric BACK: symmetric LUNGS: clear to auscultation bilaterally CARDIOVASCULAR: regular rate and rhythm, no murmurs, rubs or gallops ABDOMEN: soft, non-tender, non-distended with normal active bowel sounds : deferred NEUROLOGIC: MAEx4, no focal sensory or motor deficits MUSCULOSKELETAL: no clubbing, cyanosis or edema SKIN: no exposed rash DIAGNOSTIC RESULTS Procedures/EKG: EKG was reviewed by myself. Physician EKG interpretation can be found in [facility] RADIOLOGY (Per Emergency Physician): Interpretation per the Radiologist below, if available at the time of this note: No orders to display ED BEDSIDE ULTRASOUND: Performed by ED Physician - none LABS: Labs Reviewed CBC WITH AUTO DIFFERENTIAL - Abnormal Result Value Auto WBC 3.3 (*) RBC 4.27 Hemoglobin 14.0 Hematocrit 41.4 MCV 97.0 MCH 32.8 MCHC 33.8 RDW 12.2 Platelets 460 (*) MPV 6.2 (*) nRBC 0.1 Neutrophils Relative 39.5 (*) Lymphocytes Relative 52.4 (*) Monocytes Relative 6.5 Eosinophils Relative 0.4 (*) Basophils Relative 1.2 Neutrophils Absolute 1.3 (*) Lymphocytes Absolute 1.8 Monocytes Absolute 0.2 Eosinophils Absolute 0.0 Basophils Absolute 0.0 BASIC METABOLIC PANEL - Abnormal SODIUM 144 POTASSIUM 4.4 CHLORIDE 104 CARBON DIOXIDE 27 UREA NITROGEN 7 CREATININE 0.48 (*) GLUCOSE 100 CALCIUM 9.6 ANION GAP 13 eGFR >90.0 COMPLETE URINALYSIS - Abnormal Color, Urine Colorless Clarity, Urine Clear pH, Urine 5.5 Leukocytes, Urine Negative Nitrite, Urine Negative Protein, Urine Negative Glucose, Urine Normal Bilirubin, Urine Negative Ketones, Urine Negative Urobilinogen, Urine Normal Blood, Urine Negative SPECIFIC GRAVITY OF URINE (NUMERIC) 1.004 (*) HCG QUALITATIVE URINE HCG,URINE QUAL Negative Narrative: is the most common reason for HCG in urine, although choriocarcinoma, hydatidiform mole, and certain nontrophoblastic malignancies also result in detectable urinary HCG levels. Sensitivity = 20mIU/mL. COMPLETE URINALYSIS WITH REFLEX TO CULTURE Narrative: The following orders were created for panel order Complete Urinalysis with reflex to Culture. Procedure Abnormality Status --------- ------ Complete Urinalysis[[id number]] Abnormal Final result Please view results for these tests on the individual orders. All other labs were within normal range or not returned as of this dictation. EMERGENCY DEPARTMENT COURSE and DIFFERENTIAL DIAGNOSIS/MDM: Vitals: Vitals: 08/26/23 1211 08/26/23 1213 08/26/23 1449 BP: (!) 156/107 110/75 Pulse: (!) 115 109 Resp: 18 16 Temp: 36.4 C (97.5 F) TempSrc: Temporal SpO2: 96% 96% 100% EMERGENCY DEPARTMENT COURSE and DIFFERENTIAL DIAGNOSIS/MDM: Vitals: Vitals: 08/26/23 1211 08/26/23 1213 08/26/23 1449 BP: (!) 156/107 110/75 Pulse: (!) 115 109 Resp: 18 16 Temp: 36.4 C (97.5 F) TempSrc: Temporal SpO2: 96% 96% 100% The patient presented with a chief complaint of rash that she developed last night mainly throughout her knees. Rashes is gone but as well as some persistent achy pain throughout her knees. Also states some redness throughout her arms. No fevers but has had chills. Abdomen started after using a new soap last night. The differential diagnosis associated with this patient's presentation includes contact dermatitis, viral rash, autoimmune. Our workup consisted of ordering/reviewing basic lab work which shows slight leukopenia. The rest of the lab work was benign. Urine was negative. Trial the patient on steroids for her persistent achy pain. No edema throughout the joints. Full range of motion throughout the joint. No fever, low suspicion for septic arthritis or acute bacterial infection at this time. No vaginal bleeding or discharge or concerns for STDs. Low suspicion for gonococcal arthritis. Plan was initially to give IV steroids Benadryl and fluids for tachycardia however the patient refused IV. Was amenable to blood work which was performed. Patient given oral prednisone here versus going emergency room. All questions answered but okay be discharged.. Diagnoses as of 08/26/23 1527 Rash and other nonspecific skin eruption Diagnostic tests considered but not performed: External records reviewed: none Diagnostics interpreted by me: none Discussions with other clinicians: none Chronic conditions impacting care: Anxiety Social determinants of health affecting care: none ED Medications managed: Medications predniSONE (Deltasone) tablet 40 mg (40 mg Oral Given 08/26/23 9738) CONSULTS: None PROCEDURES: Unless otherwise noted below, none Procedures Patients symptoms are consistent with sepsis, severe sepsis, or septic shock (If yes use .sepsiscoremeasure): FINAL IMPRESSION 1. Rash and other nonspecific skin eruption DISPOSITION/PLAN dc PATIENT REFERRED TO: [facility] [address] [facility] [id number] [facility] [address] [facility] [address] DISCHARGE MEDICATIONS: Discharge Medication List as of 08/26/2023 2:44 PM START taking these medications Details predniSONE (Deltasone) 10 MG tablet Multiple Dosages:Starting Gail 08/26/2023, Until 08/28/2023, THEN Starting 08/29/2023, Until 08/31/2023, THEN Starting 09/01/2023, Until 09/03/2023, THEN Starting 09/04/2023, Until 09/06/2023Take 4 tablets (40 mg) by mouth daily for 3 days, THEN 3 tablets (30 mg) daily for 3 days, THEN 2 tablets (20 mg) daily for 3 days, THEN 1 tablet (10 mg) daily for 3 days., Print (Comment: Please note this report has been produced using speech recognition software and may contain errors related to that system including errors in grammar, punctuation, and spelling, as well as words and phrases that may be inappropriate. If there are any questions or concerns please feel free to contact the dictating provider for clarification.) Tim Fernandez DO (electronically signed) Emergency Medicine Provider Tim Fernandez DO 08/26/23 1529 [facility] 08-13-2023 Note HNO ID: [id number] Author: Dora Mathew APRN.JATIN Service: ? Author Type: Nurse Practitioner Type: Progress Notes Filed: 08/13/2023 5:16 PM Note Text: This note was created using DocDocriter. Subjective Gely Hicks is a 23 year old female. HPI by patient: Gely is a 23 year old presenting to the office with the complaint of URI Started approximately 3 days ago Associated symptoms include congestion, sore throat, body aches, ANNA Denies any other concerns Covid Immunization Dates Overdue - Covid-19 Vaccine (1) Never done No completion, postpone, frequency change, or communication history exists for this topic. Sick contacts: yes, works in [place] and Covid cases there Smoking history/second hand smoke: no OTC nothing NO antibiotic use in the last 60 days. ALLERGIES Cephalexin Rash Family History Reviewed Including Cardiac Diseases, Psychiatric Diseases, AND Substance Abuse Problem: other (Uterine fibroid-hysterectomy) Relation: Mother Age of Onset: (Not Specified) Comment: BRCA negative Problem: Ovarian cancer Relation: Maternal Grandmother Age of Onset: 61 Social History Tobacco Use Smoking status: Never Smokeless tobacco: Never Vaping Use Vaping Use: current everyday user Substances: Nicotine Alcohol use: Not Currently Drug use: No Review of Systems Constitutional: Positive for fatigue. Negative for chills and fever. HENT: Positive for congestion, postnasal drip, rhinorrhea and sore throat. Negative for ear pain. Respiratory: Positive for cough. Cardiovascular: Negative for chest pain. Musculoskeletal: Positive for myalgias. Allergic/Immunologic: Negative for immunocompromised state. Neurological: Positive for headaches. Hematological: Negative for adenopathy. Objective BP 137/99 (BP Site: Right Arm, BP Position: Sitting, BP Cuff Size: Regular Adult) Pulse 107 Resp 16 LMP 06/19/2023 (Approximate) SpO2 100% Physical Exam Vitals and nursing note reviewed. HENT: Right Ear: Tympanic membrane and ear canal normal. Left Ear: Tympanic membrane and ear canal normal. Nose: Congestion and rhinorrhea present. Mouth/Throat: Pharynx: Uvula midline. Posterior oropharyngeal erythema present. No oropharyngeal exudate. Cardiovascular: Rate and Rhythm: Normal rate and regular rhythm. Heart sounds: Normal heart sounds. Pulmonary: Effort: Pulmonary effort is normal. No respiratory distress. Breath sounds: Normal breath sounds. No stridor. No wheezing, rhonchi or rales. Chest: Chest wall: No tenderness. Lymphadenopathy: Cervical: No cervical adenopathy. Skin: General: Skin is warm and dry. Neurological: Mental Status: She is alert and oriented to person, place, and time. Assessment and Plan ASSESSMENT/PLAN: 1. Viral URI with cough - ICD9: 465.9, ICD10: J06.9 - Discussed viral etiology and rationale for treatment. - Symptomatic treatment with prn analgesia - Supportive care with fluids and rest - COVID AND INFLUENZA A/B AND RSV NAAT, ROUTINE - OXYMETAZOLINE 0.05 % NASAL SPRAY - GUAIFENESIN ER 600 MG TABLET, EXTENDED RELEASE 12 HR Dora Mathew APRN.CNP Medical Decision Making: Problems: Moderate: New problem with uncertain prognosis Data: Unique test(s) ordered: 3+ Risk: Moderate: Drug management Medical Decision Making Level: 4 - Moderate [facility] 07-28-2023 History of Present illness Narrative SUBJECTIVE Gely Hicks is a 23 year old woman who presents for confirmation of . [facility]- Patient's last menstrual period was 06/19/2023 (approximate). +UCG 07/18/23 and 07/26/23. UCG negative now. EDC 03/27/24 at 5 1/2 wks. HISTORIES FAMILY HISTORY Problem Relation Age of Onset other (Uterine fibroid-hysterectomy) Mother BRCA negative Ovarian cancer Maternal Grandmother 61 PAST MEDICAL HISTORY Diagnosis Date Abnormal Pap smear of cervix 02/2021 ascus/+HPV 04/13 LSIL 05/15 LSIL Chlamydia 01/2020 Dysmenorrhea Family history of ovarian cancer pt's mother tested negative BRCA Genital herpes vulvar outbreak of HSV1 Irregular menses PAST SURGICAL HISTORY Procedure Laterality Date EXTRACTION, ERUPTED TOOTH OR EXPOSED ROOT (ELEVATION AND/OR FORCEPS REMOVAL) ALLERGIES Allergen Reactions Cephalexin Rash Current Outpatient Medications Medication Sig valACYclovir (VALTREX) 500 mg tablet TAKE 1 TABLET BY MOUTH EVERY DAY polyethylene glycol 3350 (MIRALAX) 17 gram/dose powder Dissolve dose in 4 - 8 ounces of liquid and take as directed. (Patient not taking: Reported on 07/28/2023) Sennosides (SENNA) 8.6 mg cap Take 1 capsule by mouth two times a day. (Patient not taking: Reported on 07/28/2023) valACYclovir (VALTREX) 500 mg tablet take 2 tablets by mouth every 12 hours lidocaine-prilocaine (EMLA) 2.5-2.5 % cream Apply to affected area as needed. (Patient not taking: Reported on 07/13/2023) lidocaine-prilocaine (EMLA) 2.5-2.5 % cream Apply to affected area as needed. (Patient not taking: Reported on 07/13/2023) No current facility-administered medications for this visit. 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 HEENT: Within normal limits PELVIC: deferred RECTOVAGINAL: Deferred EXTREMITIES: No edema, no calf tenderness NEUROLOGICAL: Grossly intact ASSESSMENT/PLAN: 1. 5 weeks gestation of - ICD9: V22.2, ICD10: Z3A.01 - HCG QUANTITATIVE - ABO AND RH ONLY - HCG QUANTITATIVE - COMPLETE DHA 29 MG IRON-1 MG-200 MG ORAL PACK MD Megan Aguilar documented in this encounter [facility] 07-13-2023 Note HNO ID: [id number] Author: Dora Mathew APRN.TIRE CURER Service: ? Author Type: Nurse Practitioner Type: Progress Notes Filed: 07/13/2023 11:06 AM Note Text: This note was created using NoteWriter. Subjective Gely Hicks is a 23 year old female. HPI by patient: Gely is a 23 year old presenting to the office with the complaint of constipation Started approximately 4 days ago Associated symptoms include fatigue, constipated, nausea. Has not tried anything for this Denies any other concerns Covid Immunization Dates Overdue - Covid-19 Vaccine (1) Overdue - never done No completion, postpone, frequency change, or communication history exists for this topic. 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 ALLERGIES Cephalexin Rash Family History Reviewed Including Cardiac Diseases, Psychiatric Diseases, AND Substance Abuse Problem: other (Uterine fibroid-hysterectomy) Relation: Mother Age of Onset: (Not Specified) Comment: BRCA negative Problem: Ovarian cancer Relation: Maternal Grandmother Age of Onset: 61 Social History Tobacco Use Smoking status: Never Smokeless tobacco: Never Vaping Use Vaping Use: current everyday user Substances: Nicotine Alcohol use: Not Currently Drug use: No Review of Systems Constitutional: Positive for fatigue. Negative for chills and fever. HENT: Negative for congestion, ear pain, rhinorrhea and sore throat. Respiratory: Negative for cough. Cardiovascular: Negative for chest pain. Gastrointestinal: Positive for abdominal distention, abdominal pain and constipation. Allergic/Immunologic: Negative for immunocompromised state. Hematological: Negative for adenopathy. Objective LMP 05/03/2023 (Approximate) Physical Exam Vitals and nursing note reviewed. HENT: Right Ear: Tympanic membrane and ear canal normal. Left Ear: Tympanic membrane and ear canal normal. Nose: Nose normal. Mouth/Throat: Pharynx: Uvula midline. Cardiovascular: Rate and Rhythm: Normal rate and regular rhythm. Heart sounds: Normal heart sounds. Pulmonary: Effort: Pulmonary effort is normal. Breath sounds: Normal breath sounds. Abdominal: General: Bowel sounds are normal. There is no distension. Palpations: There is no mass. Tenderness: There is no abdominal tenderness. There is no right CVA tenderness, left CVA tenderness or guarding. Negative signs include Benoit's sign and McBurney's sign. Lymphadenopathy: Cervical: No cervical adenopathy. Skin: General: Skin is warm and dry. Neurological: Mental Status: She is alert and oriented to person, place, and time. Assessment and Plan ASSESSMENT/PLAN: 1. Acute constipation - ICD9: 564.00, ICD10: K59.00 (primary diagnosis) - Supportive care recs provided - POLYETHYLENE GLYCOL 3350 17 GRAM/DOSE ORAL POWDER - SENNA 8.6 MG CAPSULE - COVID AND INFLUENZA A/B AND RSV NAAT, ROUTINE 2. Fatigue, unspecified type - ICD9: 780.79, ICD10: R53.83 - Covid, RSV, Flu Dora Matehw APRN.CNP Medical Decision Making: Problems: Moderate: New problem with uncertain prognosis Data: Unique test(s) ordered: 3+ Risk: Moderate: Drug management Medical Decision Making Level: 4 - Moderate [facility] 07-13-2023 Instructions Dora Mathew APRN.TIRE CURER - 07/13/2023 10:57 AM EST Constipation Constipation can be an unpleasant topic to talk about. Most people have experienced constipation at some point in their life. Though typically not serious, constipation can be both painful and frustrating. What is constipation? Constipation occurs when bowel movements become difficult or less frequent than normal. The frequency or time between bowel movements ranges widely from person to person. Some people have bowel movements several times a day while others only one to two times a week. Going longer than three days without a bowel movement is too long. After three days, the stool becomes harder and more difficult to pass. What causes constipation? Constipation is most commonly caused by inadequate fiber in the diet or a disruption of the regular diet or routine. Chronic constipation may be due to a poor diet, dehydration, certain medications (such as antidepressants, strong pain medications), stress, or the pressure of other activities that force you to ignore the urge to empty the bowel. Various medical conditions can also cause or aggravate constipation. Some of the more common medical conditions that cause constipation include endocrine problems, such as decreased function of the thyroid gland or diabetes. Colorectal cancer is another medical condition that can cause constipation but it usually also accompanied by other symptoms including blood in the stool and weight loss. Common causes of constipation include the following: A diet low in fiber Not drinking enough water Lack of exercise Travel or another change in routine Eating large amounts of milk or cheese Stress or resisting the urge to have a bowel movement Medications strong pain medicines such as narcotics antidepressants antacids containing calcium or aluminum such as TUMS iron pills allergy medications such as antihistamines certain blood pressure medicines psychiatric medications herbal supplements Irritable bowel syndrome (IBS) Neurologic disorders including spinal cord injury and multiple sclerosis (MS) Slow transit of the colon How is constipation evaluated? Most people do not need extensive testing to evaluate constipation. Only a small number of patients with constipation have a serious underlying medical problem (such as poor function of the thyroid gland, diabetes, or colorectal cancer). If you have constipation that has persisted for more than two weeks, you should see a doctor to determine if you need further evaluation. For a patient who has colorectal cancer, early detection and treatment may be life-saving. Standard evaluation for constipation includes performing blood tests and examining the colon by colonoscopy, particularly for patients older than 50 years.. Other tests include colonic transit studies (time it takes for stools to move through the colon) and anal manometry (measures pressure and muscle function in the rectum and anus). Most patients with serious constipation, and without any obvious illness to explain their symptoms, suffer from one of two problems: Colonic inertia (also called lazy colon): a condition in which the colon contracts poorly and retains stool. This can be determined by colon transit studies. Obstructed defecation: a condition in which the colon contracts normally, but the patient is unable to expel stool from the rectum. This condition can be confirmed by a test called anal manometry. How can I prevent constipation? Eat a well-balanced diet with plenty of fiber. Good sources of fiber are fruits, vegetables, legumes, and whole-grain breads and cereals. Fiber and water help the colon pass stool. Most of the fiber in fruits is found in the skins, such as in apples. Fruits with seeds you can eat, like strawberries, have the most fiber. Bran is a great source of fiber: eat bran cereal or add bran cereal to other foods, like soup and yogurt. Drink eight 8-ounce glasses of water a day. (Note: Milk can cause constipation in some people.) Liquids that contain caffeine, such as coffee and soft drinks, have a dehydrating effect and may need to be avoided until your bowel habits return to normal. Exercise regularly. Move your bowels when you feel the urge. How is constipation treated? Drink two to four extra glasses of water a day. Try warm liquids, especially in the morning. Add fruits and vegetables to your diet. Eat prunes and/or bran cereal. Add supplemental fiber to your diet (there are several types, such as Metamucil, Citrucel, and Benefiber). If needed, use a very mild stool softener or laxative (such as colace [docusate] or Milk of Magnesia). Do not use laxatives for more than two weeks without calling your health care provider, as laxative overuse can aggravate your symptoms. When should I call my health care provider? Call your health care provider if: Constipation is a new problem for you. You have blood in your stool. You are losing weight unintentionally. You have severe pain with bowel movements. Your constipation has lasted more than three weeks. Where can I learn more? National Digestive Diseases Information Clearinghouse2 Information [place], [place] [address] www.digestive.niddk.nih.gov email: References: National Digestive Diseases Information Clearinghouse. Constipation. digestive.niddk.nih.gov Accessed May 27, 2012. [employer]. Understanding Constipation. www.gastro.org. Accessed May 27, 2012. Copyright 0627-9348 The [facility]. All rights reserved This information is provided by the [facility] and is not intended to replace the medical advice of your doctor or health care provider. Please consult your health care provider for advice about a specific medical condition. For additional health information, please contact the Center for Consumer Health Information at the [facility] or toll-free extension [phone]. If you prefer, you may visit [email or web address] or [email or web address]. This document was last reviewed on: 2012 index #[id number] documented in this encounter [facility] 07-13-2023 History of Present illness Narrative This note was created using NoteWriter. Subjective Gely Hicks is a 23 year old female. HPI by patient: Gely is a 23 year old presenting to the office with the complaint of constipation Started approximately 4 days ago Associated symptoms include fatigue, constipated, nausea. Has not tried anything for this Denies any other concerns Covid Immunization Dates Overdue - Covid-19 Vaccine (1) Overdue - never done No completion, postpone, frequency change, or communication history exists for this topic. 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 ALLERGIES Cephalexin Rash Family History Reviewed Including Cardiac Diseases, Psychiatric Diseases, & Substance Abuse Problem: other (Uterine fibroid-hysterectomy) Relation: Mother Age of Onset: (Not Specified) Comment: BRCA negative Problem: Ovarian cancer Relation: Maternal Grandmother Age of Onset: 61 Social History Tobacco Use Smoking status: Never Smokeless tobacco: Never Vaping Use Vaping Use: current everyday user Substances: Nicotine Alcohol use: Not Currently Drug use: No Review of Systems Constitutional: Positive for fatigue. Negative for chills and fever. HENT: Negative for congestion, ear pain, rhinorrhea and sore throat. Respiratory: Negative for cough. Cardiovascular: Negative for chest pain. Gastrointestinal: Positive for abdominal distention, abdominal pain and constipation. Allergic/Immunologic: Negative for immunocompromised state. Hematological: Negative for adenopathy. Objective LMP 05/03/2023 (Approximate) Physical Exam Vitals and nursing note reviewed. HENT: Right Ear: Tympanic membrane and ear canal normal. Left Ear: Tympanic membrane and ear canal normal. Nose: Nose normal. Mouth/Throat: Pharynx: Uvula midline. Cardiovascular: Rate and Rhythm: Normal rate and regular rhythm. Heart sounds: Normal heart sounds. Pulmonary: Effort: Pulmonary effort is normal. Breath sounds: Normal breath sounds. Abdominal: General: Bowel sounds are normal. There is no distension. Palpations: There is no mass. Tenderness: There is no abdominal tenderness. There is no right CVA tenderness, left CVA tenderness or guarding. Negative signs include Benoit's sign and McBurney's sign. Lymphadenopathy: Cervical: No cervical adenopathy. Skin: General: Skin is warm and dry. Neurological: Mental Status: She is alert and oriented to person, place, and time. Assessment and Plan ASSESSMENT/PLAN: 1. Acute constipation - ICD9: 564.00, ICD10: K59.00 (primary diagnosis) - Supportive care recs provided - POLYETHYLENE GLYCOL 3350 17 GRAM/DOSE ORAL POWDER - SENNA 8.6 MG CAPSULE - COVID & INFLUENZA A/B & RSV NAAT, ROUTINE 2. Fatigue, unspecified type - ICD9: 780.79, ICD10: R53.83 - Covid, RSV, Flu Dora Mathew APRN.CNP Medical Decision Making: Problems: Moderate: New problem with uncertain prognosis Data: Unique test(s) ordered: 3+ Risk: Moderate: Drug management Medical Decision Making Level: 4 - Moderate documented in this encounter [facility] 06-08-2023 Emergency department Note This RN reviewed pt discharge instructions with pt. Pt verbalized understanding and denies questions at this time. Pt A&Ox4 no distress noted. Pt denies need for wheelchair and ambulated out of ED with a steady gait. July Rolon RN 06/08/23 0604 [facility] 06-08-2023 Emergency department Note This RN reviewed pt discharge instructions with pt. Pt verbalized understanding and denies questions at this time. Pt A&Ox4 no distress noted. Pt denies need for wheelchair and ambulated out of ED with a steady gait. July Rolon RN 06/08/23 0604 Pt came out to nurses station states that her is on his way. This RN advised pt that when he arrives to have him come back to the room and we will get her discharge papers. Pt verbalized understanding and requested water. This RN took water to the patient. July Rolon RN 06/08/23 0538 Pt attempting to call for a ride home July Rolon RN 06/08/23 0414 Pt came out to nurses station asking for her phone This RN advised pt that the police told her that they did not bring her phone with her to the ER. Pt states I know it is here I talked to Augie I reminded pt that she spoke with Augie on our phone and she states where did he go. [facility] advised pt that Augie went home to get some rest and that she is to call him when she is being discharged. I advised pt that she is not discharged but pt wanted to call Augie anyway. Pt in room on room phone July Rolon RN 06/08/23 0339 Patients bong is going back home, He said that when she wakes up and is able to be discharged please call him and he will leave school to come get her. Lakia Steinberg 06/08/23 0244 Patients bong is in the room talking to bond writer. He is crying and saying that he does not know what to do about her drinking that they have been living together for only 2 months. The bong states that she drinks a few glasses of wine daily but on occasion she will drink Darci's and get belligerent drunk like dangelo. Patients bong also states that he is unaware of any issues with the patient wanting to harm herself in any manner. He is asking for information on a alcohol treatment program for her. Lakia Steinberg 06/08/23 0249 This RN spoke with pt. Pt states that she will cooperate with staff to come out of restraints and states that she will also cooperate if we allow Augie her to come to bedside. This RN called Augie and advised him that it is ok for him to come see the patient and gave Augie directions to the department July Rolon RN 06/08/23 010 Protective services called to take pt out of restraints July Rolon RN 06/08/23 0106 Augie. Pt called wanting update. Pt states that this RN can speak with . I advised that I would call him back once pt is calmed down and ok'd for visitors. Augie verbalized understanding. This RN then went back to bed and educated pt on the behavior required to come out of restraints. Pt verbalized but states I know your fucking my I advised pt that I am unsure of who her is and that I am not having any relations with him. Pt states take me out of these restraints. I again educated pt on the behavior required to come out of restraints. July Rolon RN 06/08/23 0050 Patient is fighting the restraints by trying to pull her hands out of them, She is sitting up th the bed yelling and screaming at the top of her lungs that she wants a different nurse (Grain Elevator Superintendent) because bond writer will not take her out of the restraints and call her . Lakia Steinberg 06/08/23 0009 Patient is refusing to listen and keeps trying to get up and leave. Protective Service placed the patient back into bed once again and placed her in leather restraints. Lakia Steinberg 06/07/23 9250 Patient is refusing to stay in the room she put on her shoes bond writer stood in the doorway and the patient was all in my face telling me that she was leaving protective service was called again and placed the patient back into bed. Patient is refusing to listen to anything. Lakia Steinberg 06/07/23 9674 Patient is on the phone with her and is refusing to let us do any blood work urine or anything. Charge Nurse July is trying to explain to the patient what is going to happen but the patient keeps yelling ans screaming and is refusing to listen. Protective Service is at the bedside. Lakia Steinberg 06/07/232322 Per Physician pt ok to not have line and lab if pt is refusing July Rolon RN 06/08/23 0031 Pt presents to er yelling at staff, pt presents pink slipped by ems. Pt is unwilling to answer questions and cooperate with staff. Denny Cristi 06/07/230 [facility] ED EMERGENCY DEPARTMENT ENCOUNTER Pt Name: Gely Hicks Birthdate 2000 Date of evaluation: 06/07/2023 Provider: Patsy Carl MD CHIEF COMPLAINT Chief Complaint Patient presents with Alcohol Intoxication Suicidal Pt presents to er yelling at staff, pt presents pink slipped by ems. Pt is unwilling to answer questions and cooperate with staff. HISTORY OF PRESENT ILLNESS (Location/Symptom, Timing/Onset, Context/Setting, Quality, Duration, Modifying Factors, Severity) Note limiting factors. I wore a surgical mask for the entirety of this encounter. Gely Hicks is a 23 y.o. female who self-reports 6 weeks presenting with significant alcohol intoxication and threats of suicide. Initial encounter in the hallway where she was in an EMS stretcher rocking the stretcher [id number] so much so that she almost toppled over screaming and shouting at the paramedics who stabilized at and held her down for her own safety. She is extremely intoxicated, slurring her words and making repetitive statements and unable to even focus on making eye contact with me. We were able to redirect her verbally and get her to have a discussion about why she was here and she was actually able to tell us that it is because she was drunk and said some things that I regret specifically about being suicidal. She says that she does not want to kill herself and regrets saying those things. I explained to her that we need for her to become more sober before it safe to let her go without a sober ride. Per report she had an argument with her significant other and she wants to call them right now, but she is so incredibly intoxicated and agitated I am fearful that in the short-term this will make this worse. We will allow her to call him, and she agrees to wait and remain here until she can become more sober. She is refusing labs at this time. She was placed under green slip. Past Medical history reviewed. REVIEW OF SYSTEMS Negative except for above HPI Review of Systems PAST MEDICAL HISTORY Past Medical History: Diagnosis Date Anxiety SURGICAL HISTORY Past Surgical History: Procedure Laterality Date WISDOM TOOTH EXTRACTION CURRENT MEDICATIONS Previous Medications MULTIPLE VITAMINS-MINERALS (MULTIVITAMIN WITH MINERALS) TABLET Take 1 tablet by mouth daily. ALLERGIES Patient has no known allergies. FAMILY HISTORY No family history on file. SOCIAL HISTORY Social History Socioeconomic History Marital status: Single Tobacco Use Smoking status: Every Day Smokeless tobacco: Never Vaping Use Vaping Use: Every day Substances: Nicotine Substance and Sexual Activity Alcohol use: Yes Alcohol/week: 21.0 standard drinks of alcohol Drug use: Not Currently SCREENINGS PHYSICAL EXAM (up to 7 for level 4, 8 or more for level 5) @EDTRIAGEVSS@ Physical Exam Vitals and nursing note reviewed. Constitutional: Comments: Very clinically intoxicated, having trouble visually focusing on me HENT: Head: Normocephalic and atraumatic. Nose: Nose normal. Eyes: Conjunctiva/sclera: Conjunctivae normal. Cardiovascular: Rate and Rhythm: Normal rate. Pulmonary: Effort: Pulmonary effort is normal. No respiratory distress. Abdominal: General: Abdomen is flat. There is no distension. Comments: Kicks at me, will not allow me to examine abdomen or lungs Skin: General: Skin is warm and dry. Capillary Refill: Capillary refill takes less than 2 seconds. Neurological: General: No focal deficit present. Mental Status: She is alert. Comments: Clinically intoxicated, slurring words, but moves all extremities equally and spontaneously, has equal and symmetric facial grimace Psychiatric: Behavior: Behavior normal. EMERGENCY DEPARTMENT COURSE and DIFFERENTIAL DIAGNOSIS/MDM: Vitals: Vitals: 06/07/23 2307 06/07/23 2310 BP: (!) 120/94 BP Location: Left arm Pulse: 70 Resp: 20 Temp: 36.7 C (98.1 F) TempSrc: Tympanic SpO2: 99% 96% Medications sodium chloride 0.9 % bolus 1,000 mL (has no administration in time range) haloperidol lactate (Haldol) injection 5 mg (5 mg IntraMUSCular Given 06/07/232356) LORazepam (Ativan) injection 1 mg (1 mg IntraMUSCular Given 06/07/232356) Medical Decision Making ADDITIONAL MEDICAL DESICION MAKING IS DOCUMENTED IN THE ED COURSE. PLEASE REFER TO ED COURSE. Gely Hicks is a 23 y.o. female who self-reports 6 weeks presenting with significant alcohol intoxication and threats of suicide. Initial encounter in the hallway where she was in an EMS stretcher rocking the stretcher [id number] so much so that she almost toppled over screaming and shouting at the paramedics who stabilized at and held her down for her own safety. She is extremely intoxicated, slurring her words and making repetitive statements and unable to even focus on making eye contact with me. We were able to redirect her verbally and get her to have a discussion about why she was here and she was actually able to tell us that it is because she was drunk and said some things that I regret specifically about being suicidal. She says that she does not want to kill herself and regrets saying those things. I explained to her that we need for her to become more sober before it safe to let her go without a sober ride. Per report she had an argument with her significant other and she wants to call them right now, but she is so incredibly intoxicated and agitated I am fearful that in the short-term this will make this worse. We will allow her to call him, and she agrees to wait and remain here until she can become more sober. She is refusing labs at this time. She was placed under green slip. Differential diagnoses considered include: Plan: Problems Addressed: Alcoholic intoxication without complication (CMS/HCC) (HCC): complicated acute illness or injury Amount and/or Complexity of Data Reviewed Independent Historian: EMS Details: and police - report bizzare, violent behavior on scene and threatened to hang herself Labs: ordered. Decision-making details documented in ED Course. Risk Prescription drug management. . All independent interpretations of EKGs are documented in [facility]. Date: 06/08/2023 Time: 11:53 PM Patient is in: [x]Restraints [] Seclusion Behavior that required intervention: [x]Threat to Self [x]Threat to Others Explain: thrashing, nearly rocked EMS stretcher over, then in bed extremely intoxicated and unstable on feet, thrashing at staff Evaluation of the patient's immediate situation: agitated, danger to self and others Evaluation of the patient's reaction to the intervention: [x]Agitated [x]Spitting []Pacing [x]Screaming [] Punching []Hitting [x]Uncooperative []Traumatized []Unaffected []Calm []Cooperative []Resting on bed []Asleep Other: Evaluation of the patient's medical and behavioral condition: Respiratory status: Will not allow me to examine her, kicking, but shouting and not dyspneic, normal WOB and able to scream. No resp distress. Vital Signs: Vitals: 06/07/23 2310 BP: Pulse: Resp: Temp: SpO2: 96% Skin: Skin color, texture, turgor normal. No rashes or lesions or normal Mental Status: [x]Agitated []Disoriented [x] Uncooperative []Calm [] Oriented []Cooperative Need to [x]Continue []Discontinue Patsy Carl MD Acute Care [facility] ED Course as of 06/08/23 0402 Mon Jun 07, 2023 2355 HCG,URINE QUAL: Negative Urine test negative. Patient will be sedated with Haldol and Ativan for her safety safety of staff. See srbo-ic-hcns below. [BJ] Tue Jun 08, 2023 0171 Patient patient is much more clinically sober and continues to deny suicidality. She is calm, has a very coherent conversation and is now pleasant and is not lashing out at staff or myself and is able to have a normal conversation. She is sober enough for a shared discussion regarding her disposition. She states that she again said that things because she was upset and mad and was seeking attention but does not actually want to harm herself. She says that she would never kill herself, just that those things because I was being stupid was mad at my boyfriend and has no desire to harm anybody else. Boyfriend is sober, was here earlier and wishes to be called back when she is ready to go home. Patient will be discharged into the care of a sober ride. [BJ] ED Course User Index [BJ] Patsy Carl MD Diagnoses as of 06/08/23401 Alcoholic intoxication without complication (CMS/HCC) ([facility]) CONSULTS: None PROCEDURES: Unless otherwise noted below, none Procedures FINAL IMPRESSION 1. Alcoholic intoxication without complication (CMS/HCC) ([facility]) DISPOSITION/PLAN DISPOSITION Discharge 06/08/2023 04:01:01 AM PATIENT REFERRED TO: No follow-up provider specified. DISCHARGE MEDICATIONS: New Prescriptions No medications on file @[facility]([id number]:LAST:1)@ (Please note: Portions of this note were completed with a voice recognition program. Efforts were made to edit the dictations but occasionally words and phrases are mis-transcribed.) Form [id number] Patsy Carl MD (electronically signed) Emergency Medicine Provider Patsy Carl MD 06/08/23401 Pt presents to er yelling at staff, pt presents pink slipped by ems. Pt is unwilling to answer questions and cooperate with staff. documented in this encounter [facility] 06-08-2023 Emergency department Note Pt came out to nurses station states that her is on his way. This RN advised pt that when he arrives to have him come back to the room and we will get her discharge papers. Pt verbalized understanding and requested water. This RN took water to the patient. July Rolon RN 06/08/23 0538 [facility] 06-08-2023 Emergency department Note Pt attempting to call for a ride home July Rolon RN 06/08/23 0414 [facility] 06-08-2023 Hospital Discharge instructions Patsy Carl MD - 06/08/2023 4:01 AM EDT Images from the original note were not included. You were seen in the [facility] emergency department for alcohol intoxication. Labs and imaging demonstrated no acute injury or illness. After brief observation in the ER, you sobered up and were safe for discharge. Please follow-up with your primary care physician as soon as possible, and return to the ER if you develop any further chest pain, shortness of breath, nausea, vomiting, severe pain, inability to eat or drink without vomiting, weakness, slurred speech, or any other symptoms that concern you. Alcohol Detox Facilities and Resources 1. [facility]- accepts Medicaid Drug and Alcohol rehabilitation [facility] [phone] 2. [facility] [phone] [facility] ([place], [place]) detox 4. [facility] [phone] Need to call for a bed. If a bed is not available then they will put on wait list 5. [facility] addiction recovery Center [phone] 6. [facility] Living housing, counseling, education, job referral and coaching [phone] 7. Referral Line [phone] 8. [facility] Alcohol and drug counseling [phone] Patient Education Alcohol Use Disorder Discharge Instructions About this topic Alcohol use disorder is when you misuse or overuse beer, wine, or mixed drinks. Some people lose control of their drinking. They drink more than they mean to. Others find they need more and more alcohol to get the same effects. Some people notice symptoms if they cut down on their drinking. Alcoholism means your brain and body are physically addicted to alcohol. You have a strong need or cravings to drink alcohol. You cannot stop or limit your drinking once you start. You may have signs of withdrawal if you stop drinking. You need to drink more to get the same effect. Problems with alcohol happen when you drink too much, too fast, or too often. A drinking problem can change all parts of your life. Drinking too much alcohol can cause problems in your family, your home, and with your job or school. It can also cause problems with your financial, physical, and mental health. It can cause social and legal problems. You may injure or harm yourself or others if you are drunk. Alcoholism is a medical problem. Your doctor can diagnose it. You may have signs like you: Drink more or longer than you planned Want to cut down or stop and you are not able to Spend a lot of time drinking and feel sick after drinking Have trouble at home or with family, job, or school from drinking Still drink even with these problems Still drink even if you feel depressed, nervous, or have another medical problem Give up things you like to drink instead There are many treatment programs to help you quit. You may need counseling and medicines. You may be treated in a special recovery center, or you may go to a program while living at home. It may help you to join a support group. After you get out of treatment, you will need a good support plan to help keep you sober. Your focus will be on not drinking and working on how to live without alcohol. What care is needed at home? Ask your doctor what you need to do when you go home. Make sure you ask questions if you do not understand what the doctor says. This way you will know what you need to do. Set up an appointment with a counselor to get help with your drinking. Join a support group like Alcoholics Anonymous. Take part in support group activities. It may help to have people that give you comfort, encouragement, and guidance. There are many things you can do to manage your drinking and lower your risk for problems. Some people choose to stop drinking alcohol completely. If you do drink: Limit how much you drink or alternate your drinks with a glass of water or other drink that does not contain alcohol. Do not drink on an empty stomach. Food may help slow down absorption. Do not drive if you have been drinking. Have a friend you feel comfortable with, who can help you stay responsible and not drink. Keep a drink journal. Write down how much you drink, where you were, and anything that may have triggered your drinking. This can help you learn more about your drinking patterns and make changes. Make some changes in your daily habits and get a new routine. Avoid spending time with people you used to drink with. Spend time with friends who do not drink. Learn how to cope with stress. Take a slow deep breath, soak in a warm bath, listen to soothing music, or do some fun activities. Do things that you enjoy. Try gardening, walk with your pet, or talk with family or friends. What follow-up care is needed? Your doctor may ask you to make visits to the office to check on your progress. Be sure to keep these visits. Be honest with your doctor about your progress or problems at home. What drugs may be needed? The doctor may order drugs that are not addictive to: Prevent withdrawal signs Reduce cravings for alcohol Treat nutrition problems Will physical activity be limited? Physical activity may not be limited. Doing certain activities may help you keep away from alcohol. What problems could happen? Bleeding from your stomach Brain damage like memory loss, confusion, or loss of coordination Seizures Liver damage Pancreas damage Cancer of the mouth, esophagus, throat, liver, and breast Heart damage High blood pressure alcohol exposure if you are . No amount of alcohol is safe for women to drink. Your child may have brain damage, problems with learning or behaving from your drinking. What can be done to prevent this health problem? Avoid places, people, or situations that bring up thoughts of drinking. Avoid going to bars and clubs. Do not hang out with friends you used to drink with. Mingle with people who do not drink and who can support your recovery. Do not keep alcohol at home, in your car, or at work. Throw away all alcohol. If handling the alcoholic beverages triggers a craving, have a friend or family member remove them for you. When do I need to call the doctor? You or someone else has been drinking alcohol and has signs of alcohol poisoning such as: Throwing up and cannot stop. Has slow breathing, less than 8 times a minute. Irregular breathing. Pauses between breaths for more than 10 seconds. Skin that looks blue or pale or feels cool to the touch. Is not able to wake up. Seizures. You or someone else has signs of delirium tremens, or DTs, such as: Confusion. Anxiety. See, hear, feel, smell, or taste things that aren t there. These are hallucinations. Shaking. Fever of 100.4 F (38 C) or higher. Sweating. You have milder signs of alcohol withdrawal like trouble sleeping, a headache, or an upset stomach. Teach Back: Helping You Understand The Teach Back Method helps you understand the information we are giving you. After you talk with the staff, tell them in your own words what you learned. This helps to make sure the staff has described each thing clearly. It also helps to explain things that may have been confusing. Before going home, make sure you can do these: I can tell you about my condition. I can tell you what my plan is for staying sober. I can tell you what I will do if I am shaking or feeling nervous or irritable. Where can I learn more? National [place] of Alcohol Abuse and Alcoholism http://www.niaaa.nih.gov/alcohol-h ealth/nmjqbdaa-wepqgst-tjsypadvduv /ixxlxts-xij-kiumhmkrw National Health Service https://www.nhs.uk/conditions/alco hol-misuse/ Substance Abuse and Mental Health Services Administration https://www.[facility].gov/find-help/n [facility]-helpline Last Reviewed Date 2021-01-27 Consumer Information Use and Disclaimer This generalized information is a limited summary of diagnosis, treatment, and/or medication information. It is not meant to be comprehensive and should be used as a tool to help the user understand and/or assess potential diagnostic and treatment options. It does NOT include all information about conditions, treatments, medications, side effects, or risks that may apply to a specific patient. It is not intended to be medical advice or a substitute for the medical advice, diagnosis, or treatment of a health care provider based on the health care provider's examination and assessment of a patient s specific and unique circumstances. Patients must speak with a health care provider for complete information about their health, medical questions, and treatment options, including any risks or benefits regarding use of medications. This information does not endorse any treatments or medications as safe, effective, or approved for treating a specific patient. The [facility] and its affiliates disclaim any warranty or liability relating to this information or the use thereof. The use of this information is governed by the Terms of Use, available at https://www.My [employer] Med.com/en/k now/ntktqiaj-kfifphtckmyge-niwvd Copyright Copyright 2021 [facility] and its affiliates and/or licensors. All rights reserved. documented in this encounter [facility] 06-08-2023 Emergency department Note Pt came out to nurses station asking for her phone This RN advised pt that the police told her that they did not bring her phone with her to the ER. Pt states I know it is here I talked to Augie I reminded pt that she spoke with Augie on our phone and she states where did he go. [facility] advised pt that Augie went home to get some rest and that she is to call him when she is being discharged. I advised pt that she is not discharged but pt wanted to call Augie anyway. Pt in room on room phone July Rolon RN 06/08/23 0339 [facility] 06-08-2023 Emergency department Note Patients bong is going back home, He said that when she wakes up and is able to be discharged please call him and he will leave school to come get her. Lakia Steinberg 06/08/23 0244 [facility] 06-08-2023 Emergency department Note Clint woody is in the room talking to bond writer. He is crying and saying that he does not know what to do about her drinking that they have been living together for only 2 months. The bong states that she drinks a few glasses of wine daily but on occasion she will drink Darci's and get belligerent drunk like tontony. Patients bong also states that he is unaware of any issues with the patient wanting to harm herself in any manner. He is asking for information on a alcohol treatment program for her. Lakia Steinberg 06/08/23 0249 [facility] 06-08-2023 Emergency department Note This RN spoke with pt. Pt states that she will cooperate with staff to come out of restraints and states that she will also cooperate if we allow Augie her to come to bedside. This RN called Augie and advised him that it is ok for him to come see the patient and gave Augie directions to the department July Rolon RN 06/08/23 0107 T [facility] 06-08-2023 Emergency department Note Protective services called to take pt out of restraints July Rolon RN 06/08/23105 T [facility] 06-08-2023 Emergency department Note [phone] Augie. Pt called wanting update. Pt states that this RN can speak with . I advised that I would call him back once pt is calmed down and ok'd for visitors. Augie verbalized understanding. This RN then went back to bed and educated pt on the behavior required to come out of restraints. Pt verbalized but states I know your fucking my I advised pt that I am unsure of who her is and that I am not having any relations with him. Pt states take me out of these restraints. I again educated pt on the behavior required to come out of restraints. July Rolon RN 06/08/23 0050 T [facility] 06-08-2023 Emergency department Note Patient is fighting the restraints by trying to pull her hands out of them, She is sitting up th the bed yelling and screaming at the top of her lungs that she wants a different nurse (Grain Elevator Superintendent) because bond writer will not take her out of the restraints and call her . Lakia Steinberg 06/08/23 0009 T [facility] 06-07-2023 Emergency department Note Patient is refusing to listen and keeps trying to get up and leave. Protective Service placed the patient back into bed once again and placed her in leather restraints. Lakia Gonzalez Idris 06/07/230 [facility] 06-07-2023 Emergency department Note Patient is refusing to stay in the room she put on her shoes bond writer stood in the doorway and the patient was all in my face telling me that she was leaving protective service was called again and placed the patient back into bed. Patient is refusing to listen to anything. Lakia S Idris 06/07/232343 T [facility] 06-07-2023 Emergency department Note Patient is on the phone with her and is refusing to let us do any blood work urine or anything. Charge Nurse July is trying to explain to the patient what is going to happen but the patient keeps yelling ans screaming and is refusing to listen. Protective Service is at the bedside. Lakia Steinberg 06/07/232322 [facility] 06-07-2023 Emergency department Note Per Physician pt ok to not have line and lab if pt is refusing July Rolon RN 06/08/23 0031 T [facility] 06-07-2023 Emergency department Note Pt presents to er yelling at staff, pt presents pink slipped by ems. Pt is unwilling to answer questions and cooperate with staff. Denny Colin 06/07/23 231 [facility] 06-07-2023 Emergency department Triage note Pt presents to er yelling at staff, pt presents pink slipped by ems. Pt is unwilling to answer questions and cooperate with staff. [facility] 06-07-2023 Physician Emergency department Note [facility] ED EMERGENCY DEPARTMENT ENCOUNTER Pt Name: Gely Hicks Birthdate 2000 Date of evaluation: 06/07/2023 Provider: Patsy Carl MD CHIEF COMPLAINT Chief Complaint Patient presents with Alcohol Intoxication Suicidal Pt presents to er yelling at staff, pt presents pink slipped by ems. Pt is unwilling to answer questions and cooperate with staff. HISTORY OF PRESENT ILLNESS (Location/Symptom, Timing/Onset, Context/Setting, Quality, Duration, Modifying Factors, Severity) Note limiting factors. I wore a surgical mask for the entirety of this encounter. Gely Hicks is a 23 y.o. female who self-reports 6 weeks presenting with significant alcohol intoxication and threats of suicide. Initial encounter in the hallway where she was in an EMS stretcher rocking the stretcher [id number] so much so that she almost toppled over screaming and shouting at the paramedics who stabilized at and held her down for her own safety. She is extremely intoxicated, slurring her words and making repetitive statements and unable to even focus on making eye contact with me. We were able to redirect her verbally and get her to have a discussion about why she was here and she was actually able to tell us that it is because she was drunk and said some things that I regret specifically about being suicidal. She says that she does not want to kill herself and regrets saying those things. I explained to her that we need for her to become more sober before it safe to let her go without a sober ride. Per report she had an argument with her significant other and she wants to call them right now, but she is so incredibly intoxicated and agitated I am fearful that in the short-term this will make this worse. We will allow her to call him, and she agrees to wait and remain here until she can become more sober. She is refusing labs at this time. She was placed under green slip. Past Medical history reviewed. REVIEW OF SYSTEMS Negative except for above HPI Review of Systems PAST MEDICAL HISTORY Past Medical History: Diagnosis Date Anxiety SURGICAL HISTORY Past Surgical History: Procedure Laterality Date WISDOM TOOTH EXTRACTION CURRENT MEDICATIONS Previous Medications MULTIPLE VITAMINS-MINERALS (MULTIVITAMIN WITH MINERALS) TABLET Take 1 tablet by mouth daily. ALLERGIES Patient has no known allergies. FAMILY HISTORY No family history on file. SOCIAL HISTORY Social History Socioeconomic History Marital status: Single Tobacco Use Smoking status: Every Day Smokeless tobacco: Never Vaping Use Vaping Use: Every day Substances: Nicotine Substance and Sexual Activity Alcohol use: Yes Alcohol/week: 21.0 standard drinks of alcohol Drug use: Not Currently SCREENINGS PHYSICAL EXAM (up to 7 for level 4, 8 or more for level 5) @EDTRIAGE[facility]SS@ Physical Exam Vitals and nursing note reviewed. Constitutional: Comments: Very clinically intoxicated, having trouble visually focusing on me HENT: Head: Normocephalic and atraumatic. Nose: Nose normal. Eyes: Conjunctiva/sclera: Conjunctivae normal. Cardiovascular: Rate and Rhythm: Normal rate. Pulmonary: Effort: Pulmonary effort is normal. No respiratory distress. Abdominal: General: Abdomen is flat. There is no distension. Comments: Kicks at me, will not allow me to examine abdomen or lungs Skin: General: Skin is warm and dry. Capillary Refill: Capillary refill takes less than 2 seconds. Neurological: General: No focal deficit present. Mental Status: She is alert. Comments: Clinically intoxicated, slurring words, but moves all extremities equally and spontaneously, has equal and symmetric facial grimace Psychiatric: Behavior: Behavior normal. EMERGENCY DEPARTMENT COURSE and DIFFERENTIAL DIAGNOSIS/MDM: Vitals: Vitals: 06/07/23 2307 06/07/23 2310 BP: (!) 120/94 BP Location: Left arm Pulse: 70 Resp: 20 Temp: 36.7 C (98.1 F) TempSrc: Tympanic SpO2: 99% 96% Medications sodium chloride 0.9 % bolus 1,000 mL (has no administration in time range) haloperidol lactate (Haldol) injection 5 mg (5 mg IntraMUSCular Given 06/07/232356) LORazepam (Ativan) injection 1 mg (1 mg IntraMUSCular Given 06/07/23 1215) Medical Decision Making ADDITIONAL MEDICAL DESICION MAKING IS DOCUMENTED IN THE ED COURSE. PLEASE REFER TO ED COURSE. Gely Hicks is a 23 y.o. female who self-reports 6 weeks presenting with significant alcohol intoxication and threats of suicide. Initial encounter in the hallway where she was in an EMS stretcher rocking the stretcher [id number] so much so that she almost toppled over screaming and shouting at the paramedics who stabilized at and held her down for her own safety. She is extremely intoxicated, slurring her words and making repetitive statements and unable to even focus on making eye contact with me. We were able to redirect her verbally and get her to have a discussion about why she was here and she was actually able to tell us that it is because she was drunk and said some things that I regret specifically about being suicidal. She says that she does not want to kill herself and regrets saying those things. I explained to her that we need for her to become more sober before it safe to let her go without a sober ride. Per report she had an argument with her significant other and she wants to call them right now, but she is so incredibly intoxicated and agitated I am fearful that in the short-term this will make this worse. We will allow her to call him, and she agrees to wait and remain here until she can become more sober. She is refusing labs at this time. She was placed under green slip. Differential diagnoses considered include: Plan: Problems Addressed: Alcoholic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 file (Comment: Please note this report has been produced using speech recognition software and may contain errors related to that system including errors in grammar, punctuation, and spelling, as well as words and phrases that may be inappropriate. If there are any questions or concerns please feel free to contact the dictating provider for clarification.) Janusz Andrea MD (electronically signed) Emergency Medicine Provider Janusz Andrea MD 01/30/23 0259 Janusz Andrea MD 01/30/23 0456 T [facility] 11-21-2022 Hospital Discharge instructions Dian Moody, NANCY - TIRE CURER - 11/21/2022 4:37 PM EDT Please call the Ophthalmology Clinic on Wednesday morning to schedule a follow up appointment for Wednesday. This is Per Dr. Cardozo's recommendations. Inform the ticket scheduler of this and that this is a follow up for this emergency room visit. Use the viroptic eye drops that we provided you. 1 drop to right eye every 3 hours while awake. This should be around 5-6 times daily. Also, if you wake up during the night and it has been 3 hrs since last dose, you can take a dose then as well. Do this for two weeks, unless instructed to taper or discontinue this when you see wafer polisher. In the medical field, there is always a level of diagnostic uncertainty, even if this uncertainty is low. For this reason, it is important to immediately return to the emergency department if you have any new symptoms, worsening symptoms, change of symptoms, or if you have any other concerns. We would be happy to re-evaluate you. Otherwise, please take your medications as prescribed and follow-up as recommended. The following attachments cannot be sent through Care Everywhere.Herpes Keratitis (Cuban)documented in this encounter [facility] 11-21-2022 Emergency department Note No facial droop noted. Able to move all extremities with purpose. Pre K Lead Teacher strength equal and strong bilaterally. Pt resting comfortably in bed. No needs voiced at this time. Rafa Linares RN 11/21/22 0907 [facility] 11-21-2022 Emergency department Note No facial droop noted. Able to move all extremities with purpose. Pre K Lead Teacher strength equal and strong bilaterally. Pt resting comfortably in bed. No needs voiced at this time. Rafa Linares RN 11/21/22 0907 Emergency Medicine Attending Note I personally saw the patient and performed a substantive portion of the visit including a history and physical examination. I discussed all aspects of the medical decision making with the drywall professional. This will serve as my supervisory note and shared attestation. History 22-year-old female presents complaining of decreased vision in her right eye. Began several days ago and has been followed by ophthalmology. She is taking her eyedrops for what she was told were cysts. She states that today she had graying of her vision. She has not had that before. Her eye still hurts which is unchanged from previous. No previous history of glaucoma. Came to the emergency department for evaluation. Exam Pupils round reactive to light funduscopic exam unremarkable Medical Decision Making / ED Course Imaging obtained and rule out retrobulbar process. Care coordination with the ophthalmology service Impression Visual change right eye Plan Pending ophthalmology (Please note that portions of this note may have been completed with a voice recognition program. Efforts were made to edit the dictations but occasionally words are mis-transcribed.) MD Denny Valdivia MD 11/21/22 1559 documented in this encounter [facility] 11-21-2022 Physician Emergency department Note Emergency Medicine Attending Note I personally saw the patient and performed a substantive portion of the visit including a history and physical examination. I discussed all aspects of the medical decision making with the drywall professional. This will serve as my supervisory note and shared attestation. History 22-year-old female presents complaining of decreased vision in her right eye. Began several days ago and has been followed by ophthalmology. She is taking her eyedrops for what she was told were cysts. She states that today she had graying of her vision. She has not had that before. Her eye still hurts which is unchanged from previous. No previous history of glaucoma. Came to the emergency department for evaluation. Exam Pupils round reactive to light funduscopic exam unremarkable Medical Decision Making / ED Course Imaging obtained and rule out retrobulbar process. Care coordination with the ophthalmology service Impression Visual change right eye Plan Pending ophthalmology (Please note that portions of this note may have been completed with a voice recognition program. Efforts were made to edit the dictations but occasionally words are mis-transcribed.) MD Denny Valdivia MD 11/21/22 1559 [facility] Work Phone: 09-02-2022 History of Present illness Narrative SUBJECTIVE: Gely Hicks is a 22 year old female who took 2 home tests which were positive (08/30 and 08/31) and then took more that were negative on 09/01. Patient's last menstrual period was 08/08/2022 (approximate). Pt states she missed a couple of days of her control in July and didn't double up the next day. She had been on antibiotics in July and didn't use condoms for backup. When she had a positive test 08/30/22 she stopped taking control. UCG:Negative. If we have negative BHCG result tomorrow she can start a new pack of Breonna and must use condoms for backup. FAMILY HISTORY Problem Relation Age of Onset other (Uterine fibroid-hysterectomy) Mother BRCA negative Ovarian cancer Maternal Grandmother 61 PAST MEDICAL HISTORY Diagnosis Date Abnormal Pap smear of cervix 02/2021 ascus/+HPV 04/13 LSIL Chlamydia 01/2020 Dysmenorrhea Family history of ovarian cancer pt's mother tested negative BRCA Irregular menses PAST SURGICAL HISTORY Procedure Laterality Date EXTRACTION, ERUPTED TOOTH OR EXPOSED ROOT (ELEVATION AND/OR FORCEPS REMOVAL) Social History Tobacco Use Smoking status: Never Smokeless tobacco: Never Substance Use Topics Alcohol use: Not Currently Drug use: No Current Outpatient Medications Medication Sig norethindrone-e.estradiol-iron (BREONNA 24 FE) 1 mg-20 mcg(24) /75 mg (4) CHEW ONE TABLET BY MOUTH ONCE DAILY No current facility-administered medications for this visit. ALLERGIES Allergen Reactions Cephalexin Rash OBJECTIVE BP 118/70 Ht 4' 10 (1.47m) Wt 115 lb (52.2kg) LMP 08/08/2022 BMI 24.04 kg/(m^2). No exam today. ASSESSMENT/PLAN: 1. Irregular bleeding - ICD9: 626.4, ICD10: N92.6 (primary diagnosis) - HCG QUANTITATIVE 2. Encounter for surveillance of contraceptive pills - ICD9: V25.41, ICD10: Z30.41 - discussed with patient on how to take OCP's. - counseled on benefits, risks and possible severe side effects of OCP's. - discussed need to use Condoms to help to prevent STD's including HIV etc. - NORETHINDRONE 1 MG-E. ESTRADIOL 20 MCG (24)-IRON 75 MG (4) CHEW TABLET JANEL Rodriguez Return in about 8 months (around 04/20/2023) for Annual Exam. documented in this encounter [facility] 08-10-2022 Miscellaneous Notes Patient returned call and was notified of message below regarding LAB results per provider. Patient acknowledged understanding of instructions and has no further questions. Audra Dunn Your vaginal ID showed high counts of lactobacilli and group B strep. STD screen from vaginal testing was negative. If you are supplementing probiotic, take a break x a few weeks. A prescription for clindamycin will be sent to your pharmacy. The following approved medication requests have been transmitted electronically. Requested Prescriptions Signed Prescriptions Disp Refills clindamycin (CLEOCIN) 300 mg capsule 14 capsule 0 Sig: Take 1 capsule by mouth twice daily for 7 days. Authorizing Provider: JASON BORJA MD documented in this encounter [facility] 08-05-2022 History of Present illness Narrative SUBJECTIVE Gely Hicks is a 22 year old woman who presents for complete STD screening. Patient's last menstrual period was 07/07/2022 (approximate). HISTORIES FAMILY HISTORY Problem Relation Age of Onset other (Uterine fibroid-hysterectomy) Mother BRCA negative Ovarian cancer Maternal Grandmother 61 PAST MEDICAL HISTORY Diagnosis Date Abnormal Pap smear of cervix 02/2021 ascus/+HPV 04/13 LSIL Chlamydia 01/2020 Dysmenorrhea Family history of ovarian cancer pt's mother tested negative BRCA Irregular menses PAST SURGICAL HISTORY Procedure Laterality Date EXTRACTION, ERUPTED TOOTH OR EXPOSED ROOT (ELEVATION AND/OR FORCEPS REMOVAL) ALLERGIES Allergen Reactions Cephalexin Rash Current Outpatient Medications Medication Sig fluticasone (FLONASE ALLERGY RELIEF) 50 mcg/actuation nasal spray Use 1 [place] in each nostril twice daily. norethindrone-e.estradiol-iron (BREONNA 24 FE) 1 mg-20 mcg(24) /75 mg (4) CHEW ONE TABLET BY MOUTH ONCE DAILY human papilloma virus HPV9 vaccine (GARDASIL-9) 0.5 mL injection syringe 0.5 mL intramuscularly once for 1 dose to be given at 0, 2, and 6 months from first injection (Patient not taking: Reported on 08/05/2022) No current facility-administered medications for this visit. REVIEW OF SYSTEMS GENERAL: No weight loss, malaise or fevers NECK: Negative for lumps, goiter, pain and significant neck swelling RESPIRATORY: Negative for cough, wheezing, dyspnea or shortness of breath CARDIOVASCULAR: Negative for chest pain or palpitations GI: Negative for abdominal discomfort, blood in stools or black stools, change in bowel habit, diarrhea, nausea, vomiting, constipation : No history of dysuria, frequency or incontinence DECORATIVE CUTTING MACHINE TENDER: Negative for abnormal vaginal bleeding, abnormal vaginal discharge or Breast symptoms ENDOCRINE: Negative for cold or heat intolerance, polyuria, polydipsia and goiter NEURO: No history of headaches, syncope, paralysis, seizures or tremors OBJECTIVE BP 110/78 Ht 4' 10 (1.47m) Wt 111 lb (50.3kg) LMP 07/07/2022 BMI 23.21 kg/(m^2). HEENT: Within normal limits PELVIC: EGBUS: Normal female external genitalia, no lesions or cysts VAGINA: + discharge, no bleeding, well-rugated, no lesions RECTOVAGINAL: Deferred EXTREMITIES: No edema, no calf tenderness NEUROLOGICAL: Grossly intact ASSESSMENT/PLAN: 1. Exposure to sexually transmitted disease (STD) - ICD9: V01.6, ICD10: Z20.2 (primary diagnosis) - HERPES SIMPLEX TYPE 1 AND 2 IG - HEP C AB IA W/CONF SCRN - HIV 1 2 COMBO(AG/AB),WITH REFLEX TO DIFFERENTIATION - SYPHILIS TOTAL W/REFLEX - HEP B SURF AG SCRN 2. Malaise and fatigue - ICD9: 780.79, ICD10: R53.81, R53.83 - HIV 1 2 COMBO(AG/AB),WITH REFLEX TO DIFFERENTIATION 3. Need for HPV vaccination - ICD9: V04.89, ICD10: Z23 - HUMAN PAPILLOMAVIRUS VACCINE,9-VALENT(PF) 0.5 ML INTRAMUSCULAR SYRINGE MD Megan Aguialr documented in this encounter [facility] 07-23-2022 Miscellaneous Notes Denied refill; we don't prescribe this for pt. She would need to see her PCP. Denia Villa PA-C Last appointment: na Next appointment: na Pharmacy verified in Epic. Refill(s) requested: Requested Prescriptions Pending Prescriptions Disp Refills fluticasone (FLONASE) 50 mcg/actuation nasal spray [Pharmacy Med Name: FLUTICASONE PROP 50 MCG SPRAY] 16 mL Sig: SPRAY 1 SPRAY INTO EACH NOSTRIL TWICE A DAY Order(s) pended. Please advise. Chandni Farmer MA, CONCRETE ROD BUSTER documented in this encounter [facility] 06-16-2022 History of Present illness Narrative This note was created using DocDocriter. Subjective Gely Hicks is a 22 year old female. HPI by patient: Gely Hicks is a 22 year old presenting to the office with the complaint of viral symptoms. Started just this morning, just woke up with symptoms. Associated symptoms include sore throat, cough, chest pain, felt like she a little fever at home, a little congestion, a little ear pain, and fatigue. States the chest pain is with cough and mid sternal. Denies chills, body aches, shortness of breath, headache, nausea, vomiting, and diarrhea. Vaccinated for influenza: none. Covid Immunization Dates Overdue - COVID-19 VACCINE (1) Overdue - never done No completion, postpone, frequency change, or communication history exists for this topic. Personal history of Covid: none. Flu/RSV contacts: none. Strep contacts: none. Sick contacts: none. Covid + contacts: none. Travel in the last 14 days: none. Smoking history/second hand smoke: jewel. OTC not used, woke up and came here. No antibiotic use in the last 60 days. ALLERGIES Cephalexin Rash Family History Reviewed Including Cardiac Diseases, Psychiatric Diseases, & Substance Abuse Problem: other (Uterine fibroid-hysterectomy) Relation: Mother Age of Onset: (Not Specified) Comment: BRCA negative Problem: Ovarian cancer Relation: Maternal Grandmother Age of Onset: 61 Social History Tobacco Use Smoking status: Never Smokeless tobacco: Never Alcohol use: Not Currently Drug use: No Active Ambulatory Problems No Active Ambulatory Problems Resolved Ambulatory Problems Alcohol intoxication (HCC) Date Noted: 03/19/2020 Chlamydia Date Noted: 01/2020 Past Medical History: 02/2021: Abnormal Pap smear of cervix No date: Dysmenorrhea No date: Family history of ovarian cancer No date: Irregular menses Review of Systems Constitutional: Negative for chills and fatigue. Fever: felt like she was warm. HENT: Positive for congestion, ear pain, rhinorrhea and sore throat. Eyes: Negative. Respiratory: Positive for cough. Negative for shortness of breath. Cardiovascular: Positive for chest pain. Gastrointestinal: Negative. Endocrine: Negative. Genitourinary: Negative. Musculoskeletal: Negative. Skin: Negative. Neurological: Negative. Hematological: Negative. Objective BP 137/97 Pulse 108 Temp 37.2 C (98.9 F) Ht 147.3 cm (4' 10) Wt 50.3 kg (111 lb) LMP 04/20/2022 (Approximate) SpO2 100% BMI 23.20 kg/m Physical Exam Vitals reviewed. Constitutional: General: She is not in acute distress. Appearance: She is not ill-appearing, toxic-appearing or diaphoretic. HENT: Head: Normocephalic and atraumatic. Right Ear: Tympanic membrane, ear canal and external ear normal. Left Ear: Tympanic membrane, ear canal and external ear normal. Nose: Nose normal. Right Sinus: No maxillary sinus tenderness or frontal sinus tenderness. Left Sinus: No maxillary sinus tenderness or frontal sinus tenderness. Mouth/Throat: Mouth: Mucous membranes are moist. Pharynx: Oropharynx is clear. No oropharyngeal exudate or posterior oropharyngeal erythema. Cardiovascular: Rate and Rhythm: Regular rhythm. Tachycardia present. Pulmonary: Effort: Pulmonary effort is normal. Breath sounds: Normal breath sounds. Lymphadenopathy: Head: Right side of head: No submandibular or tonsillar adenopathy. Left side of head: No submandibular or tonsillar adenopathy. Cervical: No cervical adenopathy. Psychiatric: Behavior: Behavior is cooperative. Assessment and Plan (J06.9) Viral URI with cough (primary encounter diagnosis) Plan: dextromethorphan-guaiFENesin (MUCINEX DM) 30-600 mg per tablet, fluticasone (FLONASE ALLERGY RELIEF) 50 mcg/actuation nasal spray (R03.0) Elevated blood-pressure reading without diagnosis of hypertension (R07.89) Mid sternal chest pain (J02.9) Pharyngitis, unspecified etiology Plan: Education on viral vs bacterial infections. Most viral infections will last 10 days, sometimes 14. It is possible to have back to back viral infections. An antibiotic will not treat a virus. Negative strep culture in office. Declines viral testing in office. May always self schedule through [employer]. -Drink lots of fluids and get plenty of rest. Gargle with salt water 3 times/day. -Vaporizers, cool mist humidifiers, warm showers, and warm fluids help open respiratory and sinus passages. Clean humidifiers daily. -OTC tylenol as directed on the bottle. -Saline nasal spray as needed. Flonase twice daily can help reduce inflammation through the sinus cavities. -OTC Mucinex DM or generic version for cough/congestion for those over the age of 12. -Cough/deep breathing education, promote clearing of the airways and good lung expansion. -Make follow up with primary care for monitoring and resolution in symptoms, follow up with primary care in 1 week for blood pressure recheck. -Signs that warrant an ER evaluation: Sudden change/worsening in condition, lethargy, signs of dehydration, fever greater than 102 F that is not responding to Tylenol or ibuprofen (Motrin, Advil), drooling, difficulty swallowing, difficulty breathing, shortness of breath, chest pain, evidence of airway compromise (tripod position, neck extension, retractions), seizures, changes in mental status, or other concerns. The patient will pursue further outpatient evaluation with the primary care physician or another Urgent Care/Express Care as outlined in the after visit summary. The patient is agreeable to this plan of care and follow-up instructions have been explained in detail. The patient has received these instructions in written format and have expressed an understanding of the after visit summary. Medical Decision Making: Level: 3 - Low I spent a total of 20 minutes on the date of the service which included preparing to see the patient, [id number] patient care, completing clinical documentation, obtaining and/or reviewing separately obtained history, performing a medically appropriate examination, counseling and educating the patient/family/caregiver, and ordering medications, tests, or procedures. This patient encounter involved the screening or treatment of novel coronavirus infection (COVID-19). documented in this encounter [facility] 06-16-2022 Instructions Betty Quiroga APRN.CNP - 06/16/2022 8:34 AM EDT (J06.9) Viral URI with cough (primary encounter diagnosis) Plan: dextromethorphan-guaiFENesin (MUCINEX DM) 30-600 mg per tablet, fluticasone (FLONASE ALLERGY RELIEF) 50 mcg/actuation nasal spray (R03.0) Elevated blood-pressure reading without diagnosis of hypertension (R07.89) Mid sternal chest pain (J02.9) Pharyngitis, unspecified etiology Plan: Education on viral vs bacterial infections. Most viral infections will last 10 days, sometimes 14. It is possible to have back to back viral infections. An antibiotic will not treat a virus. Negative strep culture in office. Declines viral testing in office. [facility] -Drink lots of fluids and get plenty of rest. Gargle with salt water 3 times/day. -Vaporizers, cool mist humidifiers, warm showers, and warm fluids help open respiratory and sinus passages. Clean humidifiers daily. -OTC tylenol as directed on the bottle. -Saline nasal spray as needed. Flonase twice daily can help reduce inflammation through the sinus cavities. -OTC Mucinex DM or generic version for cough/congestion for those over the age of 12. -Cough/deep breathing education, promote clearing of the airways and good lung expansion. -Make follow up with primary care for monitoring and resolution in symptoms, follow up with primary care in 1 week for blood pressure recheck. -Signs that warrant an ER evaluation: Sudden change/worsening in condition, lethargy, signs of dehydration, fever greater than 102 F that is not responding to Tylenol or ibuprofen (Motrin, Advil), drooling, difficulty swallowing, difficulty breathing, shortness of breath, chest pain, evidence of airway compromise (tripod position, neck extension, retractions), seizures, changes in mental status, or other concerns. documented in this encounter [facility] 04-29-2022 Miscellaneous Notes Patient notified of Pap results. Patient verbalizes understanding and has no further questions. Audra Dunn Left message to return call to office. 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 This is usually caused by HPV (human papilloma virus). Your immune system can fight this virus off with your help - supplement B&C vitamins, get rest, reduce stress. There is a supplement called AHCC (ip.accesstake mushroom extract) which has been shown to eradicate HPV in small studies. Use abstinence/condoms. Denia Villa PA-C documented in this encounter [facility] 02-02-2022 History of Present illness Narrative SUBJECTIVE Gely Hicks is a 21 year old woman who presents for complete std screen. Would like a complete std screen Denies any symptoms. She has quit drinking. Patient's last menstrual period was 12/05/2021. Late on her period uhcg-negative. She is on 09/11 pill and had periods in the past. HISTORIES FAMILY HISTORY Problem Relation Age of Onset other (Uterine fibroid-hysterectomy) Mother BRCA negative Ovarian cancer Maternal Grandmother 61 PAST MEDICAL HISTORY Diagnosis Date Abnormal Pap smear of cervix 02/2021 ascus/+HPV Chlamydia 01/2020 Dysmenorrhea Family history of ovarian cancer pt's mother tested negative BRCA Irregular menses PAST SURGICAL HISTORY Procedure Laterality Date EXTRACTION, ERUPTED TOOTH OR EXPOSED ROOT (ELEVATION AND/OR FORCEPS REMOVAL) ALLERGIES Allergen Reactions Cephalexin Rash Current Outpatient Medications Medication Sig norethindrone-e.estradiol-iron (BREONNA 24 FE) 1 mg-20 mcg(24) /75 mg (4) CHEW ONE TABLET BY MOUTH ONCE DAILY human papillomavirus 9-valent vaccine (GARDASIL-9) 0.5 mL injection syringe 0.5 mL intramuscularly once for 1 dose to be given at 0, 2, and 6 months from first injection No current facility-administered medications for this visit. REVIEW OF SYSTEMS GENERAL: No weight loss, malaise or fevers NECK: Negative for lumps, goiter, pain and significant neck swelling RESPIRATORY: Negative for cough, wheezing, dyspnea or shortness of breath CARDIOVASCULAR: Negative for chest pain or palpitations GI: Negative for abdominal discomfort, blood in stools or black stools, change in bowel habit, diarrhea, nausea, vomiting, constipation : No history of dysuria, frequency or incontinence DECORATIVE CUTTING MACHINE TENDER: Negative for abnormal vaginal bleeding, abnormal vaginal discharge or Breast symptoms ENDOCRINE: Negative for cold or heat intolerance, polyuria, polydipsia and goiter NEURO: No history of headaches, syncope, paralysis, seizures or tremors OBJECTIVE BP 110/78 Ht 4' 10 (1.47m) Wt 102 lb (46.3kg) LMP 12/05/2021 BMI 21.32 kg/(m^2). HEENT: Within normal limits PELVIC: EGBUS: Normal female external genitalia, no lesions or cysts VAGINA: No discharge, no bleeding, well-rugated, no lesions CERVIX: cx taken for GC, chlamydia, trich RECTOVAGINAL: Deferred EXTREMITIES: No edema, no calf tenderness NEUROLOGICAL: Grossly intact ASSESSMENT/PLAN: 1. Secondary amenorrhea - ICD9: 626.0, ICD10: N91.1 (primary diagnosis) - HCG QUANTITATIVE - PROLACTIN BLD 2. Exposure to sexually transmitted disease (STD) - ICD9: V01.6, ICD10: Z20.2 - CHLAMYDIA/GC/TRICH PROFILE - HERPES SIMPLEX TYPE 1 AND 2 IG - HERPES SIMPLEX IGM AB - HEP C AB IA W/CONF SCRN - HEP B SURF AG CONFRM - HIV 1 2 COMBO(AG/AB),WITH REFLEX TO DIFFERENTIATION - SYPHILIS TOTAL W/REFLEX 3. Malaise and fatigue - ICD9: 780.79, ICD10: R53.81, R53.83 TSH BLD - THYROID PEROXIDASE ANTIBODY BLOOD - T3 FREE BLD - T4 FREE/FREE THYROX MD Megan Aguilar documented in this encounter [facility] 05-20-2021 Hospital Discharge instructions Lorenzo Alberto, - 05/20/2021 Use Claritin or Zyrtec during the day, Benadryl nighttime. Use ice as needed for inflammation. Use antibiotic prophylactically. Follow up with PCP. The following attachments cannot be sent through Care Everywhere.Insect Stings and Bites (Cuban)Tick Bite (Cuban)Spider Bite or Scorpion Sting (Cuban)documented in this encounter [facility] Work Phone: 03-19-2020 History of Past i llness Narrative Problem Noted Date Resolved Date Alcohol intoxication 03/19/2020 02/26/2021 Chlamydia 01/22/2020 02/26/2021 documented as of this encounter (statuses as of 02/02/2022) [facility] History of Past illness Narrative* Problem Noted Date Resolved Date Alcohol intoxication 03/19/2020 02/26/2021 Chlamydia 01/22/2020 02/26/2021 documented as of this encounter (statuses as of 04/29/2022) [facility] History of Past illness Narrative* Problem Noted Date Resolved Date Alcohol intoxication 03/19/2020 02/26/2021 Chlamydia 01/22/2020 02/26/2021 documented as of this encounter (statuses as of 06/16/2022) [facility] History of Past illness Narrative* Problem Noted Date Resolved Date Alcohol intoxication 03/19/2020 02/26/2021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 Alcohol and Drug Abuse Patient Records regulations: The Federal rules restrict any use of the information to criminally investigate or prosecute any alcohol or drug abuse patient.[facility] HospitalIn the event this information is protected by the Federal Confidentiality of Alcohol and Drug Abuse Patient Records regulations: The Federal rules restrict any use of the information to criminally investigate or prosecute any alcohol or drug abuse patient.[facility] HospitalIn the event this information is protected by the Federal Confidentiality of Alcohol and Drug Abuse Patient Records regulations: The Federal rules restrict any use of the information to criminally investigate or prosecute any alcohol or drug abuse patient.[facility] HospitalIn the event this information is protected by the Federal Confidentiality of Alcohol and Drug Abuse Patient Records regulations: The Federal rules restrict any use of the information to criminally investigate or prosecute any alcohol or drug abuse patient.[facility] HospitalIn the event this information is protected by the Federal Confidentiality of Alcohol and Drug Abuse Patient Records regulations: The Federal rules restrict any use of the information to criminally investigate or prosecute any alcohol or drug abuse patient.[facility] Care Teams (unrecognized sec tion and content) Building Construction Foreman Relationship Specialty Start Date End Date Maxi Brian [facility] [place] [address] PCP - General Pediatrics 11/23/18 Denia Villa PA-C [address] [id number] Women's Health Specialist 11/23/18 Building Construction Foreman Relationship Specialty Start Date End Date Adrian Theodore MD [address] [place] [id number] PCP - General Internal Medicine 09/07/20 Building Construction Foreman Relationship Specialty Start Date End Date Adrian Theodore MD [address] [address] PCP - General Internal Medicine 04/20/22 Denia Villa PA-C [address] [phone] Women's Health Specialist 11/23/18 Building Construction Foreman Relationship Specialty Start Date End Date Adrian Theodore MD [address] [facility] [address] [place] [address] PCP - General Internal Medicine 04/20/22 Denia Villa PA-C [address] [place] [id number] Women's Health Specialist 11/23/18 Building Construction Foreman Relationship Specialty Start Date End Date Adrian Theodore MD [address] [place] [address] PCP - General Internal Medicine 04/20/22 Denia Villa PA-C [address] [place] [address] Women's Health Specialist 11/23/18 Building Construction Foreman Relationship Specialty Start Date End Date Adrian Theodore MD [address] [place] [address] PCP - General Internal Medicine 04/20/22 Denia Villa PA-C [address] [place] [address] Women's Health Specialist 11/23/18 Building Construction Foreman Relationship Specialty Start Date End Date Adrian Theodore MD [address] [place] [address] PCP - General Internal Medicine 04/20/22 Denia Villa PA-C [address] [address] Women's Health Specialist 11/23/18 Building Construction Foreman Relationship Specialty Start Date End Date Adrian Theodore MD [address] [place] [address] PCP - General Internal Medicine 04/20/22 Denia Villa PA-C [address] [place] [id number] Women's Health Specialist 11/23/18 Building Construction Foreman Relationship Specialty Start Date End Date Adrian Theodore MD [address] [place] [address] PCP - General Internal Medicine 04/20/22 Denia Villa PA-C [address] [phone] Women's Health Specialist 11/23/18 Building Construction Foreman Relationship Specialty Start Date End Date Adrian Theodore MD [address] [place] PCP - General 09/07/20 Building Construction Foreman Relationship Specialty Start Date End Date Adrian Theodore MD [address] [place] PCP - General 09/07/20 Building Construction Foreman Relationship Specialty Start Date End Date Adrian Theodore MD [address] [place] [address] PCP - General Internal Medicine 04/20/22 Denia Villa PA-C [id number] [id number] Women's Health Specialist 11/23/18 Building Construction Foreman Relationship Specialty Start Date End Date Adrian Theodore MD [address] [place] [address] PCP - General Internal Medicine 04/20/22 Denia Villa PA-C [address] [address] Women's Health Specialist 11/23/18 Building Construction Foreman Relationship Specialty Start Date End Date Adrian Theodore MD [address] [place] [address] PCP - General Internal Medicine 04/20/22 Denia Villa PA-C [address] [place] [address] Women's Health Specialist 11/23/18 Building Construction Foreman Relationship Specialty Start Date End Date Adrian Theodore MD [address] [place] [address] PCP - General Internal Medicine 04/20/22 Denia Villa PA-C [address] [place] [id number] Women's Health Specialist 11/23/18 Building Construction Foreman Relationship Specialty Start Date End Date Adrian Theodore MD [address] [place] [address] PCP - General Internal Medicine 04/20/22 Denia Villa PA-C [address] [address] Women's Health Specialist 11/23/18 Building Construction Foreman Relationship Specialty Start Date End Date Adrian Theodore MD [address] [place] [address] PCP - General Internal Medicine 04/20/22 Denia Villa PA-C [address] [address] Women's Health Specialist 11/23/18 Building Construction Foreman Relationship Specialty Start Date End Date Adrian Theodore MD [address] [place] [address] PCP - General Internal Medicine 04/20/22 Denia Villa PA-C [address] [place] [phone] Women's Health Specialist 11/23/18 Building Construction Foreman Relationship Specialty Start Date End Date Adrian Theodore MD [address] [place], [place] PCP - General 09/07/20 Building Construction Foreman Relationship Specialty Start Date End Date Adrian Theodore MD [address] [place] [address] PCP - General Internal Medicine 04/20/22 Denia Villa PA-C [address] [address] Women's Health Specialist 11/23/18 Building Construction Foreman Relationship Specialty Start Date End Date Adrian Theodore MD [address] [place], [place] PCP - General 09/07/20 Building Construction Foreman Relationship Specialty Start Date End Date Adrian Theodore MD [address] [place], [place] PCP - General 09/07/20 Building Construction Foreman Relationship Specialty Start Date End Date Adrian Theodore MD [address] [place], [place] PCP - General 09/07/20 Building Construction Foreman Relationship Specialty Start Date End Date Adrian Theodore MD [address] [place] PCP - General 09/07/20 Building Construction Foreman Relationship Specialty Start Date End Date Adrian Theodore MD [address] [place], [place] [address] PCP - General Internal Medicine 04/20/22 Denia Villa PA-C [address] [phone] Women's Health Specialist 11/23/18 Building Construction Foreman Relationship Specialty Start Date End Date Adrian Theodore MD [address] [place] [address] PCP - General Internal Medicine 04/20/22 Denia Villa PA-C [address] [phone] Women's Health Specialist 11/23/18 FOR RECORDS PERTAINING TO PATIENTS WHO ARE OR HAVE BEEN ENROLLED IN A CHEMICAL DEPENDENCY/SUBSTANCEABUSE PROGRAM, SOME INFORMATION MAY BE OMITTED. This clinical summary was aggregated from multiple sources. Caution should be exercised in using it in the provision of clinical care. This summary normalizes information from multiple sources, and as a consequence, information in this document may materially change the coding, format and clinical context of patient data. In addition, data may be omitted in some cases. CLINICAL DECISIONS SHOULD BE BASED ON THE PRIMARY CLINICAL RECORDS. [facility] CenterSocial [facility] Media [facility]. provides no warranty or guarantee of the accuracy or completeness of information in this document.
[2025-03-03 09:39] VITALS: BP 134/78; PULSE 64; RESP 18; TEMP 36.1; O2SAT 99
== END 2025-03-03 09:40 | disposition home or self-care (01) ==
PROVIDERS: Emergency Provider Emergency Medicine; Visit Provider Emergency Medicine
DX: S83.91XA Sprain of unspecified site of right knee, initial encounter (principal); W01.0XXA Fall on same level from slipping, tripping and stumbling without subsequent striking against object, initial encounter
CPT/HCPCS: 73564; 99282